=== PATIENT | male | born 1980 | race Caucasian/White ===

== ENCOUNTER → 2020-08-04 09:26 | Outpatient (BNVA) | payer OTHER, SELFPAY | PROVIDERS: PCP Internal Medicine; Visit Provider Surgery | DX: Z76.89 Persons encountering health services in other specified circumstances (principal) ==

== ENCOUNTER → 2020-08-12 11:17 | Outpatient (BNVA) | payer OTHER, SELFPAY | PROVIDERS: PCP Internal Medicine; Referring Provider Internal Medicine; Visit Provider Physician Assistant | DX: E66.8 Other obesity (principal); Z68.44 Body mass index [BMI] 60.0-69.9, adult | CPT/HCPCS: 99214 ==

== ENCOUNTER → 2020-08-19 09:10 | Outpatient (BNVA) | payer OTHER, SELFPAY | PROVIDERS: PCP Internal Medicine; Referring Provider Internal Medicine; Visit Provider Physician Assistant | DX: Z76.89 Persons encountering health services in other specified circumstances (principal) ==

== ENCOUNTER → 2020-08-26 11:03 | Outpatient (BNVA) | payer OTHER, SELFPAY | PROVIDERS: PCP Internal Medicine; Visit Provider Physician Assistant | DX: E66.01 Morbid (severe) obesity due to excess calories (principal); Z68.44 Body mass index [BMI] 60.0-69.9, adult; Z71.3 Dietary counseling and surveillance | CPT/HCPCS: 99213 ==

== ENCOUNTER 2020-08-30 10:56 | Outpatient (REF) | payer OTHER, SELFPAY ==
[2020-08-30 13:13] LABS: INTERNATIONAL NORM RATIO 1.3 (0.9-1.1); Prothrombin Time 14.9 SEC (10.8-13.0)
[2020-08-31 08:31] LABS: Hepatitis A Antibody IgG Nonreactive (Nonreactive)
[2020-09-02 02:42] LABS: Ceruloplasmin 42 mg/dL (18-36)
[2020-09-03 15:01] LABS: FIB-ALT 16 U/L (9-46); FIB-Alpha-2-Macroglobulin 253 mg/dL (106-279); FIB-Apolipoprotein A1 115 mg/dL (94-176); FIB-GGT 60 U/L (3-95); FIB-Haptoglobin 157 mg/dL (43-212); FIB-Total Bilirubin 0.6 mg/dL (0.2-1.2); Liver Fibrosis Score 0.42; Liver Fibrosis Stage F1-F2; Nec Inflam Act Grade A0; Nec Inflam Act Score 0.07
[2020-09-04 13:12] LABS: Vitamin B1 7 nmol/L (8-30)
[2020-09-05 13:42] LABS: Vitamin A 22 mcg/dL (38-98)
== END 2020-08-30 10:57 | disposition home or self-care (01) ==
LOC: HO.LAB 10:56
PROVIDERS: Absent Provider Surgery; PCP Internal Medicine; Visit Provider Internal Medicine Gastroenterology
DX: K74.60 Unspecified cirrhosis of liver (principal)
CPT/HCPCS: 36415; 81596; 82390; 84425; 84590; 85610; 86708

== ENCOUNTER → 2020-09-02 09:40 | Outpatient (BNVA) | payer OTHER, SELFPAY | PROVIDERS: PCP Internal Medicine; Visit Provider Physician Assistant | DX: Z76.89 Persons encountering health services in other specified circumstances (principal) ==

== ENCOUNTER → 2020-09-09 11:54 | Outpatient (BNVA) | payer OTHER, SELFPAY | PROVIDERS: PCP Internal Medicine; Visit Provider Physician Assistant | DX: E66.01 Morbid (severe) obesity due to excess calories (principal); Z68.44 Body mass index [BMI] 60.0-69.9, adult | CPT/HCPCS: 99212 ==

== ENCOUNTER → 2020-09-15 09:30 | Outpatient (BNVA) | payer OTHER, SELFPAY | PROVIDERS: PCP Internal Medicine; Visit Provider Physician Assistant | DX: Z76.89 Persons encountering health services in other specified circumstances (principal) ==

== ENCOUNTER → 2020-09-22 08:55 | Outpatient (BNVA) | payer OTHER, SELFPAY | PROVIDERS: PCP Internal Medicine; Visit Provider Dietitian, Registered | DX: Z76.89 Persons encountering health services in other specified circumstances (principal) ==

== ENCOUNTER → 2020-10-04 09:51 | Outpatient (BNVA) | payer OTHER, SELFPAY | PROVIDERS: PCP Internal Medicine; Visit Provider Physician Assistant | DX: Z76.89 Persons encountering health services in other specified circumstances (principal) ==

== ENCOUNTER → 2020-10-06 08:42 | Outpatient (BNVA) | payer OTHER, SELFPAY | PROVIDERS: PCP Internal Medicine; Referring Provider Internal Medicine; Visit Provider Internal Medicine Gastroenterology | DX: Z76.89 Persons encountering health services in other specified circumstances (principal) ==

== ENCOUNTER → 2020-10-11 08:12 | Outpatient (BNVA) | payer OTHER, SELFPAY | PROVIDERS: PCP Internal Medicine; Referring Provider Internal Medicine; Visit Provider Physician Assistant | DX: Z76.89 Persons encountering health services in other specified circumstances (principal) ==

== ENCOUNTER → 2020-10-24 09:28 | Outpatient (BNVA) | payer OTHER, SELFPAY | PROVIDERS: PCP Internal Medicine; Visit Provider Surgery | DX: E66.01 Morbid (severe) obesity due to excess calories (principal); Z68.44 Body mass index [BMI] 60.0-69.9, adult | CPT/HCPCS: 99212 ==

== ENCOUNTER → 2020-11-10 10:57 | Outpatient (BNVA) | payer OTHER, SELFPAY | PROVIDERS: PCP Internal Medicine; Visit Provider Surgery | DX: E66.01 Morbid (severe) obesity due to excess calories (principal); Z68.44 Body mass index [BMI] 60.0-69.9, adult | CPT/HCPCS: 99212 ==

== ENCOUNTER → 2020-11-22 08:21 | Outpatient (BNVA) | payer OTHER, SELFPAY | PROVIDERS: PCP Internal Medicine; Visit Provider Physician Assistant ==

== ENCOUNTER → 2020-12-09 09:31 | Outpatient (BNVA) | payer OTHER, SELFPAY | PROVIDERS: PCP Internal Medicine; Visit Provider Physician Assistant | DX: E66.01 Morbid (severe) obesity due to excess calories (principal); Z68.44 Body mass index [BMI] 60.0-69.9, adult | CPT/HCPCS: 99212 ==

== ENCOUNTER 2020-12-10 15:28 | Emergency (ER) | payer OTHER, SELFPAY ==
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
[2020-12-10 15:44] VITALS: BP 125/44; PULSE 92; RESP 18; TEMP 36.6; O2SAT 98; BMI 65.4
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
[2020-12-10] MEDS: Acetaminophen 325 MG TABLET 975 MG PO (16:30)
== END 2020-12-10 18:02 | disposition home or self-care (01) ==
PROVIDERS: Emergency Provider Internal Medicine; PCP Internal Medicine
DX: S06.0X9A Concussion with loss of consciousness of unspecified duration, initial encounter (principal); S00.11XA Contusion of right eyelid and periocular area, initial encounter; G44.309 Post-traumatic headache, unspecified, not intractable; M54.2 Cervicalgia; V43.52XA Car driver injured in collision with other type car in traffic accident, initial encounter; Y93.9 Activity, unspecified; Y92.481 Parking lot as the place of occurrence of the external cause; Y99.9 Unspecified external cause status
CPT/HCPCS: 70450; 72125; 99283; 99284

== ENCOUNTER → 2020-12-16 08:33 | Outpatient (BNVA) | payer OTHER, SELFPAY | PROVIDERS: PCP Internal Medicine; Visit Provider Physician Assistant ==

== ENCOUNTER → 2020-12-23 09:58 | Outpatient (BNVA) | payer OTHER, SELFPAY | PROVIDERS: PCP Internal Medicine; Visit Provider Physician Assistant ==

== ENCOUNTER → 2020-12-30 08:06 | Outpatient (BNVA) | payer OTHER, SELFPAY | PROVIDERS: PCP Internal Medicine; Visit Provider Physician Assistant ==

== ENCOUNTER → 2021-01-02 13:56 | Outpatient (BNVA) | payer OTHER, SELFPAY | PROVIDERS: PCP Internal Medicine; Visit Provider Internal Medicine Cardiovascular Disease | DX: I50.32 Chronic diastolic (congestive) heart failure (principal); E66.01 Morbid (severe) obesity due to excess calories; I10 Essential (primary) hypertension; Z68.44 Body mass index [BMI] 60.0-69.9, adult | CPT/HCPCS: 93005; 99212 ==

== ENCOUNTER → 2021-01-06 10:19 | Outpatient (BNVA) | payer OTHER, SELFPAY | PROVIDERS: PCP Internal Medicine; Visit Provider Surgery ==

== ENCOUNTER → 2021-01-13 08:13 | Outpatient (BNVA) | payer OTHER, SELFPAY | PROVIDERS: PCP Internal Medicine; Visit Provider Physician Assistant ==

== ENCOUNTER → 2021-01-20 08:22 | Outpatient (BNVA) | payer OTHER, SELFPAY | PROVIDERS: PCP Internal Medicine; Visit Provider Physician Assistant ==

== ENCOUNTER → 2021-02-03 08:33 | Outpatient (BNVA) | payer OTHER, SELFPAY | PROVIDERS: PCP Internal Medicine; Visit Provider Physician Assistant ==

== ENCOUNTER 2021-02-07 09:50 | Outpatient (REF) | payer OTHER, SELFPAY | END 2021-02-07 09:51 | disposition home or self-care (01) | LOC: HO.LAB 09:50 | PROVIDERS: Visit Provider Nurse Practitioner Family | DX: N30.01 Acute cystitis with hematuria (principal); Z13.9 Encounter for screening, unspecified | CPT/HCPCS: 87086; 87088; 87186 ==

== ENCOUNTER → 2021-02-10 08:47 | Outpatient (BNVA) | payer OTHER, SELFPAY | PROVIDERS: PCP Internal Medicine; Visit Provider Physician Assistant ==

== ENCOUNTER → 2021-02-17 08:43 | Outpatient (BNVA) | payer OTHER, SELFPAY | PROVIDERS: PCP Internal Medicine; Visit Provider Physician Assistant ==

== ENCOUNTER 2021-02-24 08:11 | Outpatient (REF) | payer OTHER, SELFPAY ==
[2021-02-24 09:19] LABS: Imm Gran Abs Auto 0.01 X10*3/uL (0.00-0.03); Imm Gran Pct Auto 0.2 % (0.0-0.4); Mean Corpuscular Volume 93.7 fL (80-98); Red Cell Distribution Width 14.8 % (11.0-16.0)
[2021-02-24 09:21] LABS: Basophils Percent Auto 0.4 % (0-2); Eosinophils Absolute Auto 0.1 X10*3/uL (0.0-0.4); Eosinophils Percent Auto 2.2 % (0-4); Hematocrit 38.6 % (42-52); Hemoglobin 12.7 g/dl (14.0-18.0); Lymphocytes Absolute Auto 0.9 X10*3/uL (1.2-4.9); Lymphocytes Percent Auto 19.2 % (20-40); Mean Corpuscular HGB Conc 32.9 g/dl (31.0-36.0); Mean Corpuscular Hemoglobin 30.8 pg (27.0-33.0); Mean Platelet Volume 10.3 fL (9.4-12.4); Monocytes Absolute Auto 0.5 X10*3/uL (0.1-1.2); Neutrophils Absolute Auto 3.3 X10*3/uL (2.0-8.3); Platelet Count 105 X10*3/uL (160-400); Red Blood Count 4.12 X10*6/uL (4.60-5.80); White Blood Count 4.9 X10*3/uL (4.8-10.8)
[2021-02-24 09:22] LABS: INTERNATIONAL NORM RATIO 1.2 (0.9-1.1); Prothrombin Time 14.8 SEC (10.8-13.0)
[2021-02-24 09:38] LABS: Anion Gap 12 (12-20); Blood Urea Nitrogen 26 mg/dL (9-16); Calcium 9.1 mg/dL (8.4-10.2); Carbon Dioxide 24 mmol/L (22-29); Chloride 105 mmol/L (96-108); Cholesterol 146 mg/dL; Estimated Glomerular Filt Rate > 60; Glucose Fasting 153 mg/dL (60-99); HDL Cholesterol 30 mg/dL; LDL Cholesterol Calculated 94 mg/dl; Potassium 4.7 mmol/L (3.3-5.1); Sodium 136 mmol/L (135-145); Triglycerides 113 mg/dL
[2021-02-24 09:39] LABS: Alanine Aminotransferase 19 U/L (0-40); Albumin Level 3.2 g/dL (3.5-5.0); Alkaline Phosphatase 75 U/L (39-117); Aspartate Amino Transferase 33 U/L (5-37); Bilirubin Direct 0.4 mg/dL (0.0-0.5); Bilirubin Total 1.2 mg/dL (0.0-1.0); Estimated Glomerular Filt Rate > 60; Total Protein 7.1 g/dL (6.5-8.0)
[2021-02-24 10:51] LABS: Estimated Average Glucose 143 mg/dL; Hemoglobin A1c % 6.6 %
[2021-02-28 22:02] LABS: Vitamin A 29 mcg/dL (38-98)
[2021-03-02 07:26] LABS: Vitamin B1 7 nmol/L (8-30)
== END 2021-02-24 08:12 | disposition home or self-care (01) ==
LOC: HO.LAB 08:11
PROVIDERS: Absent Provider Surgery; PCP Internal Medicine; Visit Provider Internal Medicine Gastroenterology
DX: Z01.818 Encounter for other preprocedural examination (principal); E66.01 Morbid (severe) obesity due to excess calories; E11.9 Type 2 diabetes mellitus without complications; I10 Essential (primary) hypertension; K74.60 Unspecified cirrhosis of liver; E51.9 Thiamine deficiency, unspecified; E50.9 Vitamin A deficiency, unspecified
CPT/HCPCS: 36415; 80048; 80061; 80076; 82565; 83036; 84425; 84590; 85025; 85610

== ENCOUNTER → 2021-02-28 14:29 | Outpatient (BNVA) | payer OTHER, SELFPAY | PROVIDERS: PCP Internal Medicine; Visit Provider Internal Medicine Gastroenterology ==

== ENCOUNTER → 2021-03-03 08:41 | Outpatient (BNVA) | payer OTHER, SELFPAY | PROVIDERS: PCP Internal Medicine; Referring Provider Internal Medicine; Visit Provider Physician Assistant ==

== ENCOUNTER → 2021-03-06 11:05 | Outpatient (BNVA) | payer OTHER, SELFPAY | PROVIDERS: PCP Internal Medicine; Visit Provider Physician Assistant | DX: E66.01 Morbid (severe) obesity due to excess calories (principal); Z68.44 Body mass index [BMI] 60.0-69.9, adult | CPT/HCPCS: 99212 ==

== ENCOUNTER 2021-03-08 08:44 | Outpatient (REF) | payer OTHER, SELFPAY ==
--- NOTE | ~2021-03-08 | US_ITS ---
EXAMINATION: US ABDOMEN COMPLETE CLINICAL INFORMATION: Unspecified cirrhosis of liver. COMPARISON: None TECHNIQUE: Real-time imaging of the abdominal viscera. Exam is limited due to body habitus. FINDINGS: PANCREAS: Not visualized due to bowel gas. ABDOMINAL AORTA: The mid and distal segments are normal in caliber. The upper abdominal aorta is not well visualized due to bowel gas. INFERIOR VENA CAVA: Visualized portions are normal. LIVER: Liver echotexture is increased and. The contour of the liver is slightly irregular questionable for mild cirrhosis. No focal liver lesion or biliary ductal dilatation is seen. The GALLBLADDER: Normal. The gallbladder is physiologically distended without evidence of stones, sludge, polyps, wall thickening or pericholecystic fluid. COMMON BILE DUCT: Normal in caliber measuring 0.2 cm in diameter. RIGHT KIDNEY: Right kidney is small with renal cortical thinning. No hydronephrosis. No renal calculi or focal parenchymal lesions. The kidney measures 7.8 cm in maximum dimension. LEFT KIDNEY: Normal. No hydronephrosis. No renal calculi or focal parenchymal lesions. The kidney measures 15.1 cm in maximum dimension. SPLEEN: The spleen is enlarged. The The spleen measures 17.0 cm in maximum dimension. FREE FLUID: None. US/US abdomen complete IMPRESSION: Limited exam. Cirrhotic-appearing liver. No focal liver lesion seen. Splenomegaly. No ascites. Small right kidney. Nonvisualization of the pancreas and upper abdominal aorta.
== END 2021-03-08 08:45 | disposition home or self-care (01) ==
LOC: HO.HMGCX 08:44
PROVIDERS: PCP Internal Medicine; Visit Provider Internal Medicine Gastroenterology
DX: K74.60 Unspecified cirrhosis of liver (principal)
CPT/HCPCS: 76700

== ENCOUNTER → 2021-03-17 09:27 | Outpatient (BNVA) | payer OTHER, SELFPAY | PROVIDERS: PCP Internal Medicine; Visit Provider Internal Medicine Gastroenterology | DX: Z23 Encounter for immunization (principal) | CPT/HCPCS: 99211 ==

== ENCOUNTER → 2021-03-20 08:57 | Outpatient (BNVA) | payer OTHER, SELFPAY | PROVIDERS: PCP Internal Medicine; Referring Provider Internal Medicine; Visit Provider Dietitian, Registered | DX: E66.01 Morbid (severe) obesity due to excess calories (principal); Z68.44 Body mass index [BMI] 60.0-69.9, adult | CPT/HCPCS: 97803 ==

== ENCOUNTER → 2021-03-21 14:05 | Outpatient (BNVA) | payer OTHER, SELFPAY | PROVIDERS: PCP Internal Medicine; Visit Provider Surgery | DX: E66.01 Morbid (severe) obesity due to excess calories (principal); Z68.44 Body mass index [BMI] 60.0-69.9, adult | CPT/HCPCS: 99212 ==

== ENCOUNTER → 2021-03-30 13:16 | Outpatient (BNVA) | payer OTHER, SELFPAY | PROVIDERS: PCP Internal Medicine; Visit Provider Physician Assistant | DX: E66.01 Morbid (severe) obesity due to excess calories (principal); Z68.44 Body mass index [BMI] 60.0-69.9, adult | CPT/HCPCS: 99212 ==

== ENCOUNTER → 2021-04-06 10:23 | Outpatient (BNVA) | payer OTHER, SELFPAY | PROVIDERS: PCP Internal Medicine; Visit Provider Physician Assistant ==

== ENCOUNTER → 2021-04-12 10:49 | Outpatient (BNVA) | payer OTHER, SELFPAY | PROVIDERS: PCP Internal Medicine; Referring Provider Internal Medicine; Visit Provider Surgery | DX: E66.01 Morbid (severe) obesity due to excess calories (principal); Z68.44 Body mass index [BMI] 60.0-69.9, adult | CPT/HCPCS: 99212 ==

== ENCOUNTER → 2021-04-28 13:20 | Outpatient (BNVA) | payer OTHER, SELFPAY | PROVIDERS: PCP Internal Medicine; Referring Provider Internal Medicine; Visit Provider Physician Assistant ==

== ENCOUNTER → 2021-05-04 08:46 | Outpatient (BNVA) | payer OTHER, SELFPAY | PROVIDERS: PCP Internal Medicine; Referring Provider Internal Medicine; Visit Provider Surgery | DX: E66.01 Morbid (severe) obesity due to excess calories (principal); Z68.44 Body mass index [BMI] 60.0-69.9, adult | CPT/HCPCS: 99212 ==

== ENCOUNTER 2021-05-10 10:55 | Inpatient (IN) | payer OTHER, SELFPAY ==
[2021-04-28 10:17] VITALS: BMI 66.6
[2021-04-28 13:15] VITALS: BP 132/58; PULSE 81; RESP 20; O2SAT 98
--- NOTE | 2021-05-04 10:19 | ECG_ITS ---
Test Reason : R06.02 SOB Blood Pressure : / mmHG Vent. Rate : 064 BPM Atrial Rate : 064 BPM P-R Int : 164 ms QRS Dur : 096 ms QT Int : 402 ms P-R-T Axes : -10 048 032 degrees QTc Int : 414 ms Normal sinus rhythm Normal ECG When compared with ECG of 03-JUN-2020 08:17, No significant change was found Referred By: Sobeida Ovalles Electronically Signed By:AMY CHRISTY MD
[2021-05-04 12:02] LABS: Albumin Level 3.3 g/dL (3.5-5.0); Anion Gap 12 (12-20); Blood Urea Nitrogen 16 mg/dL (9-16); Calcium 9.2 mg/dL (8.4-10.2); Carbon Dioxide 24 mmol/L (22-29); Chloride 104 mmol/L (96-108); Creatinine Clr Calc Pharmacy 174.2; Estimated Glomerular Filt Rate > 60; Glucose Random 164 mg/dL (60-115); Potassium 4.4 mmol/L (3.3-5.1); Sodium 136 mmol/L (135-145)
[2021-05-04 12:04] LABS: Lymphocytes Absolute Auto 1.2 X10*3/uL (1.2-4.9); MANUAL DIFF FLAG SCAN; PLT CLUMP 1; SCAN SMEAR FLAG 1
[2021-05-04 12:06] LABS: Basophils Percent Auto 0.4 % (0-2); Eosinophils Absolute Auto 0.1 X10*3/uL (0.0-0.4); Eosinophils Percent Auto 1.6 % (0-4); Hematocrit 39.3 % (42-52); Hemoglobin 13.1 g/dl (14.0-18.0); Imm Gran Abs Auto 0.05 X10*3/uL (0.00-0.03); Imm Gran Pct Auto 0.7 % (0.0-0.4); Lymphocytes Percent Auto 15.8 % (20-40); Mean Corpuscular HGB Conc 33.3 g/dl (31.0-36.0); Mean Corpuscular Volume 93.1 fL (80-98); Mean Platelet Volume 10.9 fL (9.4-12.4); Monocytes Absolute Auto 0.5 X10*3/uL (0.1-1.2); Monocytes Percent Auto 6.9 % (2-11); Neutrophils Absolute Auto 5.4 X10*3/uL (2.0-8.3); Neutrophils Percent Auto 74.6 % (45-73); Platelet Count 105 X10*3/uL (160-400); Red Blood Count 4.22 X10*6/uL (4.60-5.80); Red Cell Distribution Width 14.2 % (11.0-16.0); White Blood Count 7.3 X10*3/uL (4.8-10.8)
[2021-05-04 12:09] LABS: INTERNATIONAL NORM RATIO 1.3 (0.9-1.1); Prothrombin Time 14.9 SEC (10.8-13.0)
[2021-05-04 12:12] LABS: Partial Thromboplastin Time 35.3 SEC (24.1-38.0)
[2021-05-04 13:08] LABS: Glucose Urine UA NEG (NEG); Leukocyte Esterase Urine NEG (NEG); Nitrite Urine NEG (NEG); Urine Blood NEG (NEG); Urine Ketones NEG (NEG); Urine Protein NEG (NEG-TRACE)
[2021-05-04 13:12] LABS: Appearance Urine CLEAR; Color Urine YELLOW
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
--- NOTE | 2021-05-09 12:58 | MHC.SHP ---
Pre-Procedural Eval Section A Date of Service: 05/09/21 Section B Chief Complaint: Morbid Severe Obesity Allergies: Allergies Allergy/AdvReac Type Severity Reaction Status Date / Time No Known Allergies Allergy Verified 05/04/21 10:16 Plan I have reviewed the history and physical and performed a pertinent physical examination on my patient. No changes have occurred unless specified.
[2021-05-10] VITALS (16 sets, daily range): BP systolic 106–156; BP diastolic 31–100; PULSE 72–89; RESP 16–20; TEMP 36–36.6; O2SAT 93–99
[2021-05-10 06:41] LABS: COVID-19 Test Negative (Negative); IDNOW Serial# 9DD0AD1C
[2021-05-10] MEDS: Lactated Ringers 1,000 ML 50 ML IVCONT (07:48)
[2021-05-10 08:57] LABS: Glucose, Whole Blood 162 mg/dL (60-115)
--- NOTE | 2021-05-10 10:50 | PM.OP ---
Brief Operative Note Date of Service: 05/10/21 Pre-op diagnosis: Morbid obesity, BMI 67.9, hypertension, type 2 diabetes mellitus Post-op diagnosis: other ( same and hiatal hernia) Procedure: laparoscopic sleeve gastrectomy, hiatal hernia repair, Juan block, and intraoperative endoscopy Implants: covidien kalyn Surgeon: Sobeida Ovalles MD Anesthesia: GETA Was an [employer] Fab[employer]ator used for this Procedure?: No [employer] Fabricator: Yue Petit Estimated blood loss (mL): 5 Pathology: other ( partial gastrectomy) Condition: stable Disposition: PACU
--- NOTE | 2021-05-10 10:52 | P.OP_ITS ---
Operative Note Operative Note Date of Service: 05/10/21 Narrative: Patient was brought into the operating room and placed on the operating room table in the supine position. General anesthesia was induced. Normal DVT prophylaxis was instituted and the patient received 2 grams of cefotetan preoperatively. The abdomen was then prepped and draped in the normal sterile fashion. A safety time-out was performed. A mixture of 1% lidocaine with epinephrine and ?% Marcaine plain was used to a nesthetize the planned incision site in the left upper quadrant. A #11 scalpel was used to make a 5 mm left upper quadrant transverse incision through which a veress needle was placed. Three pops were heard going through the fascia. A saline drop test was used to confirm that the veress needle was intraabdominal. An optiview technique was then used to place a 5mm port in the left upper quadrant. A 5 mm 30 degree laproscope was then placed through this port and the abdominal cavity was surveyed and the liver appeared to be cirrhotic in appearance. The patient was placed in reverse Trendelenburg positioning. A zhane liver retractor was then placed in the subxyphoid position and it was used to hold up the left lobe of the liver to the abdominal wall. This was secured to the bed using the liver retractor calderon. A SOLEDAD block was then performed for pain control on the right side of the abdomen. A 5 mm port was placed in the right upper quadrant near the falciform ligament. A 12 mm port was then placed in the mid epigastrium. One additional 5 mm port was placed in the left upper quadrant just to the left of the placement of the first port. I then performed a SOLEDAD block on the left side of the abdomen. I then removed the epigastric fat pad; there was a small anterior hiatal hernia noted. I reapproximated the left and right crura with a total of 1 stitch of 2-0 ethibond and a lap aroscopic knot pusher. There was no residual hiatal hernia. I then opened up the angle of His. We then gained entry into the lesser sac about 4-5 cm from the pylorus. I had anesthesia place a 34 [place] orogastric tube into the distal antrum to use as a sizing tool for gastric pouch size. I divided the short gastric vessels up to the angle of His. We then started the creation of the gastric pouch by firing a 60 mm purple load endostapler up the stomach about 4-5 cm from the pylorus. We completed the creation of the gastric pouch using a total of 5 firings of a 60 mm purple load stapler. We had anesthesia remove the orogastric tube, then we clamped across the distal antrum using a fired 60 mm endostapler. We flattened the patient and then instilled normal saline surrounding the newly created staple line. I then performed an on-table endoscopy. I passed the gastroscopy into the posterior oropharynx and down the esophagus evaluating the esophageal mucosa which was normal. There was no evidence of hiatal hernia. I passed the gastroscope into the gastric pouch and insufflated the gastric pouch. There was healthy pink mucosa and no evidence of active bleeding. There was no evidence of leak on laparoscopy. I desufflated the gastric pouch and removed the endoscope. I removed the endostapler from the abdomen and suctioned the fluid from the left upper quadrant. I then removed the partial gastrectomy specimen through the epigastric 12 mm port site. I reapproximated the 12 mm port using a 0 maxon suture with a laparoscopic suture passer. I instilled local anesthetic into the fascial closure site and tied the suture down at a pressure of 8-10 mm of Hg. There was no residual fascial defect. We removed the liver retractor and the left upper quadrant 5 mm ports under direct visualization. There was no evidence of any active bleeding. I desufflated the abdomen through the last remaining port and removed the laparoscope and 5 mm port. We reapproximated all incisions with a 4-0 monocryl subcuticular stitch. We cleaned and dried the abdominal skin and applied dermabond skin glue. All count were correct at the end of the case. The patient was awake and in stable condition prior to extubation and transfer to the recovery room.
--- NOTE | 2021-05-10 11:05 | PM.DS ---
DS: Providers Provider Date of Service: 05/11/21 Primary care physician: Riaz Hopson MD DS: Medications Discharge Medications Home Medications: Home Medications Medication Instructions Recorded Confirmed docusate sodium 100 mg capsule 100 mg PO BID PRN 08/12/20 05/04/21 multivitamin 1 tab PO DAILY 04/28/21 05/04/21 Previous Rx's Medication Instructions Recorded blood sugar diagnostic #100 ea 08/14/20 lancets 28 gauge #100 ea 08/14/20 blood-glucose meter #1 ea 08/15/20 furosemide 20 mg tablet 20 mg PO DAILY #90 tab 02/20/21 vitamin A palmitate 10,000 unit 20,000 unit PO DAILY 30 Days #60 03/01/21 tablet tab hydrochlorothiazide 12.5 mg capsule 12.5 mg PO QAM #90 cap 04/10/21 acetaminophen 500 mg tablet 1,000 mg PO Q6H PRN #30 tab 05/04/21 docusate sodium 100 mg capsule 100 mg PO BID #30 cap 05/04/21 famotidine 20 mg tablet 20 mg PO DAILY #30 tab 05/04/21 ondansetron HCl 4 mg tablet 4 mg PO Q6H PRN #30 tab 05/04/21 simethicone 80 mg chewable tablet 80 mg PO TID-QID PRN #30 tab 05/04/21 lisinopril 20 mg tablet 20 mg PO DAILY 90 Days #90 tab 05/09/21 DS: Summary Time Spent with Patient Time attestation: Total time spent providing and/or coordinating discharge services: Discharge coordination time: Greater than 30 minutes Quality: Stroke Does the patient have a stroke diagnosis?: No Physical Exam Vital Signs: Vital Signs: Last Vital Signs Temp 97.7 F 05/10/21 10:46 Pulse 88 05/10/21 11:02 Resp 18 05/10/21 10:56 BP 142/56 H 05/10/21 11:02 Pulse Ox 99 05/10/21 11:02 Body Mass Index 66.6 DS: Data Data Completed and Pending Pending studies at discharge: Pending at discharge 05/10/21 10:20 Surgical [PTH] Routine Labs on day of discharge: Laboratory Results - last 24 hr 05/10/21 05/10/21 06:15 07:26 POC Glucose 162 H COVID-19 ([facility]) Negative COVID-19 Clin Com See Note Discharge Plan Discharge Patient Disposition: Home, Self-Care Discharge Diagnosis: morbid obesity s/p LSG and HH repair Referrals: Riaz Hopson MD [Primary Care Provider] - 1 Week Discharge Medications: Continued (DME) FreeStyle Lite Strips Strip See Rx Instructions .ROUTE .MEDSUPPLY Qty: 100 RF: 0 (DME) lancets [FreeStyle Lancets] 28 gauge misc See Rx Instructions .ROUTE .MEDSUPPLY Qty: 100 RF: 0 (DME) blood-glucose meter [FreeStyle Lite Meter] Kit See Rx Instructions .ROUTE .MEDSUPPLY Qty: 1 RF: 0 furosemide 20 mg tablet 20 mg PO DAILY Qty: 90 RF: 0 vitamin A palmitate 10,000 unit tablet 20,000 unit PO DAILY 30 Days Qty: 60 RF: 1 hydrochlorothiazide 12.5 mg capsule 12.5 mg PO QAM Qty: 90 RF: 0 lisinopril 20 mg tablet 20 mg PO DAILY 90 Days Qty: 90 RF: 0 multivitamin Tablet 1 tab PO DAILY RF: 0 acetaminophen [Tylenol Extra Strength] 500 mg tablet 1,000 mg PO Q6H PRN (Reason: pain) Qty: 30 RF: 1 famotidine [Pepcid AC] 20 mg tablet 20 mg PO DAILY Qty: 30 RF: 1 simethicone [Gas Relief (simethicone)] 80 mg tablet,chewable 80 mg PO TID-QID PRN (Reason: abdominal distention) Qty: 30 RF: 1 ondansetron HCl [Zofran] 4 mg tablet 4 mg PO Q6H PRN (Reason: nausea and vomiting) Qty: 30 RF: 1 docusate sodium [Colace] 100 mg capsule 100 mg PO BID Qty: 30 RF: 1 Discontinued docusate sodium 100 mg capsule 100 mg PO BID PRN (Reason: Constipation) RF: 0 No Action enoxaparin [Lovenox] 30 mg/0.3 mL syringe 30 mg subcut Q12H 14 Days Qty: 8.4 RF: 0 ondansetron HCl 4 mg tablet 4 mg PO Q8H PRN (Reason: nausea and vomiting) Qty: 14 RF: 0 Discharge Orders: Discharge Order (Routine); Ordered 05/11/21 Ordered By: Yue Petit Diet: other Activity on Discharge: No heavy lifting Stand Alone Forms: Patient Portal Discharge page Activity Restrictions/Additional Instructions: Discharge Instructions 1. Please call your doctor or come back to the emergency room should any new symptoms arise. 2. You will receive a courtesy call from [facility] 24-48 hours after discharge. 3. Activity: abstain from alcohol, practice limited stair climbing, no bending, no driving, no exercise, no illicit substances, no lifting, no sex, no tub bath, no work. 4. Diet: continue stage 3 protein shakes until your [address] Ovalles. 5. Dressing Change/Wound Care: Your incision is covered by surgical glue. If the area is tender, you may apply an ice pack for short intervals (no more than 20 minutes on, followed by at least 20 minutes off). Do not apply heat. Do not use creams, lotions, or topical antibiotics unless instructed to do so by your surgeon. These can cause infection or allergic reaction. 6. Call your doctor if: - Your temperature exceeds 101.5 F - You experience excessive pain or swelling - You have an unexpected reaction to medication - You have excessive bleeding - You experience continued vomiting/nausea - Your incision begins to separate - Your incision shows signs of infection such as increased redness, swelling, excessive pain, heat, or drainage (light blood or clear fluid is normal) 7. General instructions: - No lifting greater than 5 lbs for the next 4 weeks. - No driving within 24 hours of taking narcotic pain medications. - If you do not move your bowels in the next 2 days, please take milk of magnesia over the counter. Please follow the post op diet and do not advance your diet until you are seen in the office in about 2 weeks. - Please walk around your home every hour or two to prevent blood clots from forming in your legs. You do not need to wake from sleeping to walk. - Please sleep in a bed or couch to prevent kinking at the hips and knees. - Please take your incentive spirometer (your lung continuous pickling line pickler) home with you and use it for the next few days to prevent pneumonias. - You may shower, no hot tubs, baths or swimming pools. - Please call the office with any questions or concerns such as increasing abdominal pain, fever, chills, shortness of breath, chest pain, leg pain or swelling, or redness or drainage from your incisions. - Please stay on stage 3 diet which includes sugar free clear liquids such as ice pops and jello and broth and crystal light. Avoid all carbonation. Please drink 3 protein shakes with at least 25-30 grams of protein daily or 3 of the Celebrate 4:1 shakes which can be purchased in our office. The Celebrate shakes have all of the bariatric vitamins you need if you consume these shakes. If you are drinking other protein shakes, you will need to purchase the Celebrate multivitamins and calcium that we provide in the office (they will provide all the vitamins you need). Please make sure you are consuming at least 40-60 ounces of water in addition to your 3 protein shakes daily. 8. Do not hesitate to contact the office with any questions at . The patient's medical history has been reviewed and they are considered low risk for post op DVT and therefore DVT prophylaxis is not considered necessary. Travel after surgery was reviewed. The patient has not disclosed any travel plans during the first 30 days after surgery and they have been advised that within the first 30 days after surgery any bus, plane, train or car travel over 2 hours in duration is contraindicated due to the possibility of developing blood clots from immobility. Any travel, needs to include periods of ambulation of 10 minutes in duration every 2 hours. The patient was instructed to discuss any plans for travel during this period with their bariatric surgeon. Discharge Summary Date of Service: 05/11/21 Pre-op diagnosis: Morbid obesity, BMI 67.9, hypertension, type 2 diabetes mellitus Post-op diagnosis: other ( same and hiatal hernia) Procedure: laparoscopic sleeve gastrectomy, hiatal hernia repair, Juan block, and intraoperative endoscopy Discharge Medications: 1. Simethicone 80mg tablet chewable (Si tablet every 6 hours orally for 7 days, #28, 1 RF) q4h prn gas 2. Acetaminophen 500 mg tablet (Si tablets as needed every 6 hours orally for 30 days, #240, 0 RF) 3. Ondansetron 4 mg tablet disintegrating (Si tablet every 6 hours orally for 7 days, #28, 1 RF) 4. Colace 100 mg capsule (Si capsule twice a day for 30 days, #60, 2 RF) 5. Pepcid 20 mg chewable tablet (Si tablet twice a day for 30 days, #60, 3 RF) Discharge Instructions: The patient should continue on the stage III bariatric diet, which includes 3 protein shakes of at least 20-30g of protein on a daily basis. The patient was encouraged to avoid drinking liquids with her protein shakes. They should wait 30-45 minutes in between her meals and drinking water. She should drink at least 40-60 ounces of water on a daily basis. They should ambulate while at home to avoid any blood clots in her lower extremities. They should call with any questions or concerns such as increase in abdominal pain, persistent nausea, vomiting, redness and drainage from her incisions, fever, chills, shortness of breast, or chest pain beyond what is normal for her. The patient should avoid all heavy lifting greater than 5 pounds for the next 4 weeks. The patient is already scheduled to follow up with me in 2 weeks time, but should call the office with any questions prior to that follow up appointment. The patient should not advance their diet until they are seen in the office for the 2 week appointment. Hospital Course: The patient was admitted after undergoing a LSG and HH repair. They were started on stage II (1 oz of fluid every 15 minutes) on POD #0. The next morning they were evaluated and started on stage III diet (protein shakes). All labs were within normal limits. On post-operative day #1 she was feeling better, nausea and epigastric pain improved and they were tolerating stage III bariatric diet well. The patient was discharged home. Discharge Disposition: Home. Care Plan Goals: weight loss Health Concerns: obesity Plan of Treatment: weight loss Assessment: stable POD #1 Discharge Date/Time: 05/11/21 10:14
--- NOTE | 2021-05-10 11:05 | PM.PNGS ---
Subjective Subjective Date of Service: 05/10/21 <Yue Petit PA-C - Last Filed: 05/10/21 11:09> 05/11/21 <Sobeida Ovalles MD - Last Filed: 05/11/21 09:32> Interval history: Pod #1 s/p laparoscopic sleeve gastrectomy and hiatal hernia repair. Doing well. Tolerating stage 3 diet, ambulating in hallway. Pain well controlled. Denies nausea or vomiting. Vitals and labs reviewed and are within limit for post op day 1. On exam, patient is well appearing, abdomen is soft, nd, mild appropriate incisional tenderness. Incisions c/d/i with dermabond in place. Plan: d/c home today. Follow up with me in 2 weeks. <Yue Petit PA-C - Last Filed: 05/10/21 11:09> Patient seen and examined with the PA and I agree with the exam, interval history, assessment and plan. Patient will be discharged home on 30 units of Lovenox b.i.d. given that he has a BMI over 60 and is at increased risk for postoperative DVT. He will be on Lovenox for 2 weeks postop. Patient has also had elevated blood sugars that are likely related to the stress response status post surgery. Patient will continue to monitor his blood sugars and will call his primary care doctor to determine whether he needs to be placed on diabetic medications. <Sobeida Ovalles MD - Last Filed: 05/11/21 09:32> Physical Exam Vital Signs: Vital Signs: Last Vital Signs Temp 97.7 F 05/10/21 10:46 Pulse 88 05/10/21 11:02 Resp 18 05/10/21 10:56 BP 142/56 H 05/10/21 11:02 Pulse Ox 99 05/10/21 11:02 Body Mass Index 66.6 <Yue Petit PA-C - Last Filed: 05/10/21 11:09> Const: General: cooperative, comfortable, no acute distress, alert and awake <Yue Petit PA-C - Last Filed: 05/10/21 11:09> Nutritional Appearance: obese <Yue Petit PA-C - Last Filed: 05/10/21 11:09> GI: Inspection: Yes normal to inspection, No distended and Yes incision (clean, dry, intact, dermabond in place) <Yue Petit PA-C - Last Filed: 05/10/21 11:09> Palpation (GI): Soft to palpation and Tenderness to palpation present (GI) (mild appropriate incisional tenderness) <Yue Petit PA-C - Last Filed: 05/10/21 11:09> Extrem: Right lower extremity: lower leg Details: no tenderness; no edema <Yue Petit PA-C - Last Filed: 05/10/21 11:09> Left lower extremity: lower leg Details: no tenderness; no edema <Yue Petit PA-C - Last Filed: 05/10/21 11:09> Progress Note: A&P Assessment and plan (1) Morbid obesity with BMI of 60.0-69.9, adult: Status: Acute <Yue Petit PA-C - Last Filed: 05/10/21 11:09> (2) BMI 60.0-69.9, adult: Status: Acute <Yue Petit PA-C - Last Filed: 05/10/21 11:09> (3) Hiatal hernia: Status: Acute <Yue Petit PA-C - Last Filed: 05/10/21 11:09> (4) History of repair of hiatal hernia: Status: Acute <Yue Petit PA-C - Last Filed: 05/10/21 11:09> (5) S/P laparoscopic sleeve gastrectomy: Status: Acute <Yue Petit PA-C - Last Filed: 05/10/21 11:09> Assessment and Plan: d/c home today. Follow up in 2 weeks. <Yue Petit PA-C - Last Filed: 05/10/21 11:09> Fall Risk Details Current Medications: Current Medications Generic Name Dose Route Start Last Admin Trade Name Freq PRN Reason Stop Dose Admin Albuterol Sulfate 2.5 mg 05/10/21 08:08 Albuterol Sulfate (0.083%) 2.5 Mg/3 Ml Vial.Neb INHALE ONCE PRN Wheezing Famotidine 20 mg 05/10/21 21:00 Famotidine/Pf 20 Mg/2 Ml Vial IVPUSH BID ROBERTO Fentanyl 50 mcg 05/10/21 08:08 Fentanyl Citrate/Pf 100 Mcg/2 Ml Vial IVPUSH Q5M PRN Pain, Severe (Pain Scale 7-10) Fentanyl 25 mcg 05/10/21 08:08 Fentanyl Citrate/Pf 100 Mcg/2 Ml Vial IVPUSH Q5M PRN Pain, Moderate (Pain Scale 4-6 Hydrochlorothiazide 12.5 mg 05/11/21 09:00 Hydrochlorothiazide 12.5 Mg Tablet PO DAILY [facility] Protocol Hydromorphone HCl 0.5 mg 05/10/21 08:08 Hydromorphone Hcl 0.5 Mg/0.5 Ml Syringe IVPUSH Q5M PRN Pain, Severe (Pain Scale 7-10) Hydromorphone HCl 0.25 mg 05/10/21 08:08 Hydromorphone Hcl 0.5 Mg/0.5 Ml Syringe IVPUSH Q5M PRN Pain, Severe (Pain Scale 7-10) Hydromorphone HCl 0.25 mg 05/10/21 10:55 Hydromorphone Hcl 0.5 Mg/0.5 Ml Syringe IVPUSH Q4H PRN Pain, Severe (Pain Scale 7-10) Lactated Ringer's 1,000 mls @ 50 mls/hr 05/10/21 06:15 05/10/21 07:48 Lr IVCONT 50 mls/hr .Q20H ROBERTO Administration Promethazine HCl 12.5 mg/ 50.5 mls @ 202 mls/hr 05/10/21 08:08 Sodium Chloride IV ONCE PRN Nausea and Vomiting Lactated Ringer's 1,000 mls @ 100 mls/hr 05/10/21 11:00 Lr IVCONT .Q10H ROBERTO Cefotetan Disodium 2 gm/ 50 mls @ 100 mls/hr 05/10/21 10:55 Sodium Chloride IV 05/10/21 11:24 POSTOP ONE Metoclopramide HCl 10 mg 05/10/21 11:01 Metoclopramide Hcl 10 Mg/2 Ml Vial IVPUSH Q6H PRN Nausea Ondansetron HCl 4 mg 05/10/21 11:15 Ondansetron Hcl 4 Mg/2 Ml Vial IVPUSH Q8H [facility] Oxycodone HCl 10 mg 05/10/21 08:08 Oxycodone Hcl Immed Release 5 Mg Tablet PO ONCE PRN Pain, Severe (Pain Scale 7-10) Oxycodone HCl 5 mg 05/10/21 08:08 Oxycodone Hcl Immed Release 5 Mg Tablet PO ONCE PRN Pain, Severe (Pain Scale 7-10) Sodium Chloride 3 ml 05/10/21 16:00 0.9 % Sodium Chloride Flush 3 Ml Syringe IVFSH [facility] <Yue Petit PA-C - Last Filed: 05/10/21 11:09> Time Spent With Patient Time: Total time spent is greater than 50% in coordination of care (as documented) at patient's floor/unit and/or counseling patient: <Yue Petit PA-C - Last Filed: 05/10/21 11:09> Time with patient: less than 15 minutes <Sobeida Ovalles MD - Last Filed: 05/11/21 09:32> Procedures Date of Service Date of Service: 05/11/21 <Sobeida Ovalles MD - Last Filed: 05/11/21 09:32> Quality Stroke Does the patient have a stroke diagnosis?: No <Sobeida Ovalles MD - Last Filed: 05/11/21 09:32> VTE Prior VTE?: No <Sobeida Ovalles MD - Last Filed: 05/11/21 09:32> VTE Risk Level:: Surgical - high <Sobeida Ovalles MD - Last Filed: 05/11/21 09:32> VTE Device Contraindication: N/A - Device Ordered <Sobeida Ovalles MD - Last Filed: 05/11/21 09:32> VTE Drug Contraindication: N/A - Med Ordered <Sobeida Ovalles MD - Last Filed: 05/11/21 09:32>
[2021-05-10] MEDS: HYDROmorphone HCl 0.5 MG/0.5 ML SYRINGE IVPUSH (11:08)
[2021-05-10] MEDS: Famotidine/PF 20 MG/2 ML VIAL IVPUSH ×2 (11:09→21:00)
[2021-05-10 11:47] LABS: Vitamin A 25 mcg/dL (38-98)
[2021-05-10] MEDS: ondansetron HCL 4 MG/2 ML VIAL IVPUSH ×2 (13:45→21:00)
[2021-05-10] MEDS: Furosemide 20 MG TABLET PO (14:19)
[2021-05-10 15:03] LABS: Glucose, Whole Blood 297 mg/dL (60-115)
[2021-05-10 16:12] LABS: Glucose, Whole Blood 307 mg/dL (60-115)
[2021-05-10] MEDS: Insulin Lispro 100 UNIT/ML 3 ML VIAL SUBCUT ×2 (17:00→21:01)
[2021-05-10] MEDS: HYDROmorphone HCl 0.5 MG/0.5 ML SYRINGE 0.25 MG IVPUSH (17:45)
[2021-05-10 20:24] LABS: Glucose, Whole Blood 303 mg/dL (60-115)
[2021-05-10] MEDS: cefoTEtan disodium 2 GM in 0.9 % Sodium Chloride 50 ML IV (21:00)
[2021-05-10] MEDS: 0.9 % Sodium Chloride Flush 3 ML SYRINGE IVFLUSH (21:01)
[2021-05-11 03:53] VITALS: BP 133/62; PULSE 66; RESP 16; TEMP 36.5; O2SAT 96
[2021-05-11 03:59] LABS: Glucose, Whole Blood 229 mg/dL (60-115)
[2021-05-11] MEDS: Insulin Lispro 100 UNIT/ML 3 ML VIAL SUBCUT (04:08)
[2021-05-11] MEDS: ondansetron HCL 4 MG/2 ML VIAL IVPUSH (04:08)
[2021-05-11 05:55] LABS: MANUAL DIFF FLAG NO
[2021-05-11 06:02] LABS: Basophils Percent Auto 0.1 % (0-2); Hematocrit 39.3 % (42-52); Hemoglobin 12.8 g/dl (14.0-18.0); Imm Gran Abs Auto 0.05 X10*3/uL (0.00-0.03); Imm Gran Pct Auto 0.4 % (0.0-0.4); Lymphocytes Absolute Auto 0.7 X10*3/uL (1.2-4.9); Lymphocytes Percent Auto 5.9 % (20-40); Mean Corpuscular HGB Conc 32.6 g/dl (31.0-36.0); Mean Corpuscular Volume 95.2 fL (80-98); Mean Platelet Volume 10.7 fL (9.4-12.4); Monocytes Absolute Auto 0.7 X10*3/uL (0.1-1.2); Monocytes Percent Auto 5.4 % (2-11); Neutrophils Absolute Auto 10.8 X10*3/uL (2.0-8.3); Neutrophils Percent Auto 88.2 % (45-73); Red Blood Count 4.13 X10*6/uL (4.60-5.80); Red Cell Distribution Width 14.2 % (11.0-16.0); White Blood Count 12.2 X10*3/uL (4.8-10.8)
[2021-05-11] MEDS: HYDROmorphone HCl 0.5 MG/0.5 ML SYRINGE 0.25 MG IVPUSH (06:04)
[2021-05-11 06:05] LABS: Platelet Count 88 X10*3/uL (160-400)
[2021-05-11 06:32] LABS: Anion Gap 14 (12-20); Blood Urea Nitrogen 24 mg/dL (9-16); Calcium 8.8 mg/dL (8.4-10.2); Carbon Dioxide 20 mmol/L (22-29); Chloride 104 mmol/L (96-108); Creatinine Clr Calc Pharmacy 138.8; Estimated Glomerular Filt Rate > 60; Glucose Random 210 mg/dL (60-115); Potassium 5.1 mmol/L (3.3-5.1); Sodium 133 mmol/L (135-145)
[2021-05-11 07:11] VITALS: BP 148/68; PULSE 79; RESP 17; TEMP 36.4; O2SAT 96
[2021-05-11 07:31] LABS: Glucose, Whole Blood 213 mg/dL (60-115)
[2021-05-11] MEDS: Famotidine/PF 20 MG/2 ML VIAL IVPUSH (07:48)
[2021-05-11] MEDS: lisinopriL 20 MG TABLET PO (07:53)
[2021-05-11] MEDS: Furosemide 20 MG TABLET PO (07:53)
--- NOTE | 2021-05-11 08:55 | MHC.CM.PN ---
PATIENT IS FULLY INDEPENDENT WITH HIS ADLS. NO DME OR VNA. HE IS AGREEABLE TO ASSIGNING HCP AGENTS. MOM AND DAD ARE CHOSEN (IN THAT ORDER) COPY IN CHART AND PATIENT HAS ORIGINAL. HE IS AWARE THAT HE IS DISCHARGED HOME TODAY WITH NO SERVICES. FAMILY TO TRANSPORT.
--- NOTE | 2021-05-11 09:18 | MHC.CM.PN ---
HCP FAXED INTO [facility] UNDER ACCOUNT [id number].
[2021-05-11] MEDS: Enoxaparin Sodium 30 MG/0.3 ML SYRINGE SUBCUT (09:33)
== END 2021-05-11 10:14 | disposition home or self-care (01) | DRG 403 ==
LOC: HO.SSSA 11:22 → HO.S3 12:24
PROVIDERS: Physician Assistant; Admitting Provider Surgery; PCP Internal Medicine; Visit Provider Surgery
PROC: 0DB64Z3 Excision of Stomach, Percutaneous Endoscopic Approach, Vertical (ICD-10-PCS; CPT 43845; principal; 2021-05-10 08:10)
DX: E66.01 Morbid (severe) obesity due to excess calories (principal); I11.0 Hypertensive heart disease with heart failure; I50.9 Heart failure, unspecified; E11.9 Type 2 diabetes mellitus without complications; K44.9 Diaphragmatic hernia without obstruction or gangrene; Z20.822 Contact with and (suspected) exposure to COVID-19; Z86.16 Personal history of COVID-19; Z68.44 Body mass index [BMI] 60.0-69.9, adult; Z79.899 Other long term (current) drug therapy
CPT/HCPCS: 36415; 80048; 81003; 82040; 82947; 84590; 85025; 85610; 85730; 86850; 86900; 86901; 87635; 88307; 88342; 93005; 99024; C1776; J0131; J0330; J1100; J1170; J1650; J2250; J2405; J2550; J3010

== ENCOUNTER → 2021-05-25 10:30 | Outpatient (BNVA) | payer OTHER, SELFPAY | PROVIDERS: PCP Internal Medicine; Referring Provider Internal Medicine; Visit Provider Surgery | DX: Z98.84 Bariatric surgery status (principal); Z98.890 Other specified postprocedural states; Z87.19 Personal history of other diseases of the digestive system | CPT/HCPCS: 99212 ==

== ENCOUNTER → 2021-06-02 08:12 | Outpatient (BNVA) | payer OTHER, SELFPAY | PROVIDERS: PCP Internal Medicine; Visit Provider Physician Assistant ==

== ENCOUNTER → 2021-06-13 08:56 | Outpatient (BNVA) | payer OTHER, SELFPAY | PROVIDERS: PCP Internal Medicine; Referring Provider Internal Medicine; Visit Provider Physician Assistant | DX: Z98.84 Bariatric surgery status (principal); Z98.890 Other specified postprocedural states; Z87.19 Personal history of other diseases of the digestive system | CPT/HCPCS: 99212 ==

== ENCOUNTER → 2021-06-29 08:12 | Outpatient (BNVA) | payer OTHER, SELFPAY | PROVIDERS: PCP Internal Medicine; Referring Provider Internal Medicine; Visit Provider Physician Assistant ==

== ENCOUNTER → 2021-07-05 12:30 | Outpatient (BNVA) | payer OTHER, SELFPAY | PROVIDERS: PCP Internal Medicine; Referring Provider Internal Medicine; Visit Provider Internal Medicine Cardiovascular Disease | DX: I10 Essential (primary) hypertension (principal); R60.9 Edema, unspecified | CPT/HCPCS: 99212 ==

== ENCOUNTER → 2021-07-11 09:28 | Outpatient (BNVA) | payer OTHER, SELFPAY | PROVIDERS: PCP Internal Medicine; Visit Provider Dietitian, Registered | DX: E66.01 Morbid (severe) obesity due to excess calories (principal); Z68.43 Body mass index [BMI] 50.0-59.9, adult | CPT/HCPCS: 97803 ==

== ENCOUNTER 2021-07-12 10:39 | Outpatient (REF) | payer OTHER, SELFPAY ==
[2021-07-12 13:09] LABS: Basophils Percent Auto 0.2 % (0-2); Imm Gran Abs Auto 0.01 X10*3/uL (0.00-0.03); Imm Gran Pct Auto 0.2 % (0.0-0.4); Mean Corpuscular Volume 94.8 fL (80-98); Red Cell Distribution Width 14.6 % (11.0-16.0)
[2021-07-12 13:11] LABS: Eosinophils Absolute Auto 0.1 X10*3/uL (0.0-0.4); Eosinophils Percent Auto 1.6 % (0-4); Hematocrit 39.8 % (42-52); Hemoglobin 13.5 g/dl (14.0-18.0); Lymphocytes Absolute Auto 0.8 X10*3/uL (1.2-4.9); Lymphocytes Percent Auto 18.8 % (20-40); Mean Corpuscular HGB Conc 33.9 g/dl (31.0-36.0); Mean Corpuscular Hemoglobin 32.1 pg (27.0-33.0); Monocytes Absolute Auto 0.5 X10*3/uL (0.1-1.2); Monocytes Percent Auto 10.5 % (2-11); Neutrophils Absolute Auto 3.1 X10*3/uL (2.0-8.3); Neutrophils Percent Auto 68.7 % (45-73); White Blood Count 4.5 X10*3/uL (4.8-10.8)
[2021-07-12 13:16] LABS: Platelet Count 82 X10*3/uL (160-400)
[2021-07-12 13:27] LABS: Alanine Aminotransferase 15 U/L (0-40); Albumin Level 3.5 g/dL (3.5-5.0); Alkaline Phosphatase 73 U/L (39-117); Anion Gap 17 (12-20); Aspartate Amino Transferase 34 U/L (5-37); Bilirubin Direct 0.6 mg/dL (0.0-0.5); Bilirubin Total 1.6 mg/dL (0.0-1.0); Blood Urea Nitrogen 14 mg/dL (9-16); Calcium 9.4 mg/dL (8.4-10.2); Carbon Dioxide 25 mmol/L (22-29); Chloride 101 mmol/L (96-108); Estimated Glomerular Filt Rate > 60; Glucose Random 108 mg/dL (60-115); Potassium 3.1 mmol/L (3.3-5.1); Sodium 140 mmol/L (135-145); Total Protein 7.2 g/dL (6.5-8.0)
== END 2021-07-12 10:40 | disposition home or self-care (01) ==
LOC: HO.LAB 10:39
PROVIDERS: Absent Provider Physician Assistant Surgical; PCP Internal Medicine; Visit Provider Physician Assistant
DX: R10.9 Unspecified abdominal pain (principal)
CPT/HCPCS: 36415; 80048; 80076; 85025; 99212

== ENCOUNTER 2021-07-12 13:00 | Inpatient (IN) | payer OTHER, SELFPAY ==
--- NOTE | ~2021-07-12 | CT_ITS ---
EXAMINATION: CT ABDOMEN AND PELVIS WITH CONTRAST CLINICAL INFORMATION: Severe abdominal pain. History gastric sleeve. COMPARISON: Ultrasound abdomen 03/08/2021. TECHNIQUE: Multidetector volumetric images were obtained from the superior aspect of the liver through the pubic symphysis following administration 100 mL of Omnipaque 350 intravenous contrast. Sagittal and coronal reformatted images were obtained on the technologist's workstation. Oral contrast: Yes This CT examination was performed using dose optimization techniques as appropriate, variously including the following: *Automated exposure control *Adjustment of mA and/or kV according to patient size (this includes techniques or standardized protocols for targeted exams where dose is matched to indication/reason for exam; i.e. extremities or head) *Use of iterative reconstruction technique DLP: 1433 mGy-cm FINDINGS: LUNG BASES: The visualized lung bases are unremarkable. LIVER, GALLBLADDER, AND BILIARY TREE: There is fine nodular contour to the liver surface consistent with the cirrhosis as noted on recent ultrasound. The hepatic parenchyma areas uniform in attenuation. There is no parenchymal lesion or intraparenchymal biliary ductal dilatation. The gallbladder is unremarkable with no evidence of radiopaque gallstones, gallbladder wall thickening, or obvious pericholecystic inflammatory changes. PANCREAS: Unremarkable. SPLEEN: The spleen is enlarged measuring 19.8 cm sagittal dimension and 17.1 cm coronal dimension. The parenchyma is homogeneous. ADRENAL GLANDS: There is a benign uniform fatty attenuation left adrenal myelolipoma lipoma measuring approximately 3.7 cm. Unremarkable right adrenal. KIDNEYS AND URETERS: The right kidney is scarred and atrophic, similar to recent ultrasound. The left kidney is normal in size and contour and shows no hydronephrosis, hydroureter, calculi, or perinephric stranding. BLADDER: Unremarkable. GASTROINTESTINAL TRACT: There is no ascites, or fluid collection. The appendix is normal in caliber. There is some dense barium in the appendiceal lumen versus calcified appendicoliths. No periappendiceal inflammatory change. No bowel obstruction. There is questionable mild small bowel wall thickening in mid abdomen in region of venous thrombosis with turner sign on coronal image. No pneumatosis or free air or focal wall thickening. There has been prior gastric sleeve, unremarkable appearance. ABDOMINAL WALL: Small fat-containing umbilical hernia. LYMPH NODES: No lymphadenopathy. VASCULAR: There is enlarged distal inferior mesenteric vein and enlarged main portal vein with intraluminal low attenuation consistent with venous thrombosis. There is mild stranding around the distal inferior mesenteric vein and proximal portal vein in the central mesentery. Thrombus likely extends into the proximal left and right portal veins. There are splenorenal varices left upper quadrant with normal enhancement. The abdominal aorta is normal in caliber. IVC unremarkable. PELVIC VISCERA: Unremarkable. OSSEOUS STRUCTURES: Degenerative disc changes greatest at L2-L3. No acute bony abnormality. Results called and discussed with Dr. Esparza in the Emergency Department at [address]/CT abdomen pelvis w con IMPRESSION: 1. Thrombosis distal inferior mesenteric vein and main portal vein with extension into the right and left portal veins. Cirrhosis with splenomegaly and splenorenal varices. No ascites. 2. Mild central mesenteric stranding in region of venous thrombosis. Borderline thickening mid small bowel. No pneumatosis or obstruction. Status post prior gastric sleeve, unremarkable. 3. Benign left adrenal myelolipoma 3.7 cm. 4. Atrophic right kidney with scarring. Unremarkable left kidney. No hydronephrosis.
[2021-07-12 13:07] VITALS: BP 150/83; PULSE 65; RESP 18; TEMP 37.1; O2SAT 100; BMI 57.4
--- NOTE | 2021-07-12 13:48 | ED.NAVMDI ---
HPI - Nausea/Vomiting/Diarrhea General Chief complaint: Nausea/Vomiting/Diarrhea Stated complaint: BACK PAIN Time Seen by Provider: 07/12/21 13:39 Source: patient Mode of arrival: ambulatory Limitations: no limitations History of Present Illness HPI Narrative: 41-year-old male morbid obesity status post laparoscopic sleeve gastrectomy with diaphragmatic hernia repair done in 05/10/2021, patient started to have abdominal pain 5 days ago with nausea and vomiting, pain improved but now pain is back again, patient been having nausea, vomiting nonbloody vomitus, and nonbloody watery diarrhea. Declined any fever or chills, no recent travel. Related Data Home Medications Medication Instructions Recorded Confirmed calcium carbonate 500 mg calcium 500 mg PO DAILY 05/25/21 07/05/21 (1,250 mg) tablet (Calcium 500) [id number] 45 mg-folic cap PO 05/25/21 07/05/21 acid 800 mcg-vit K 120 mcg capsule (Bariatric Multivitamins) Previous Rx's Medication Instructions Recorded furosemide 20 mg tablet (Lasix) 20 mg PO QAM 60 Days #60 tab 07/05/21 potassium chloride 20 mEq 40 meq PO DAILY 2 Days #4 tab 07/12/21 tablet,extended release Allergies Allergy/AdvReac Type Severity Reaction Status Date / Time No Known Allergies Allergy Verified 07/05/21 12:53 Review of Systems Review of Systems: All other systems are reviewed and are negative Constitutional: Reports as per HPI and Reports no additional constitutional complaints Eyes: Reports as per HPI and Reports no additional eye complaints Reports system reviewed and no additional complaints, except as documented Cardiovascular: Reports as per HPI and Reports no additional cardiovascular complaints Respiratory: Reports as per HPI and Reports no additional respiratory complaints Gastrointestinal: Reports as per HPI and Reports no additional gastrointestinal complaints Genitourinary: Reports no additional female genitourinary complaints Musculoskeletal: Reports no additional musculoskeletal complaints Skin/Breast: Reports system reviewed and no additional complaints, except as docu Psychiatric: Reports no additional psychiatric complaints Endocrine: Reports no additional endocrine complaints Hematologic/Lymphatic: Reports no additional hematologic/lymphatic complaints Allergic/Immunologic: Reports no additional allergic/immunologic complaints Reports system reviewed and no additional complaints, except as documented and Reports Abnormal speech present PMFSH Past Medical History Medical History Cellulitis Cirrhosis of liver without ascites Congestive heart failure COVID-19 vaccine series completed Essential hypertension Hiatal hernia HTN (hypertension) Major depression, single episode Moderate major depression, single episode Morbid obesity Personal history of COVID-19 Preoperative examination Shortness of breath Super obesity Trauma left hip Type 2 diabetes mellitus UTI (urinary tract infection) Vitamin A deficiency Vitamin B1 deficiency Surgical History H/O discectomy History of repair of hiatal hernia S/P laparoscopic sleeve gastrectomy Family History Family History Father Type 2 diabetes mellitus Heart disease Kidney failure Mother Obesity (BMI 30-39.9) Hypertension Brother No problems noted. Brother No problems noted. Other Mental health disorder Substance use disorder Social History Social History Housing: Apartment Are you a primary home health care provider to a significant other at home: No Do you presently have visiting nurse or other home services: No Alcohol intake: never Patient Tobacco Use Status: Never used Tobacco Use of substances other than those prescribed or required for medical reasons: No Advance Directives: No Advance Directives Information Provided: No service: No Current occupational status: unemployed Physical Exam Vital Signs: Vital Signs: Last Vital Signs Temp 98.7 F 07/12/21 13:07 Pulse 62 07/12/21 15:40 Resp 18 07/12/21 15:40 BP 154/67 H 07/12/21 15:40 Pulse Ox 100 07/12/21 15:40 Body Mass Index 57.4 Vital signs have been reviewed as appeared to be correct. Blood pressure elevated. Heart rate normal. Respiration rate normal. Temperature normal. Oxygen saturation normal. Appearance: Alert. Oriented X3. No acute distress. Head: Normal external exam. Normocephalic. Atraumatic. No Moffett signs noted. No raccoon eyes noted Eyes: PERRLA. EOMI. Conjunctiva and sclera normal. Eyelids normal. ENT: TM's Normal. Pharynx normal. Uvula midline. Moist mucous membranes. No trismus noted. No drooling noted. No muffled voice noted. Neck: Normal inspection. Neck supple. FROM. No adenopathy. Thyroid Normal. No meningeal signs. No neck mass noted. CVS: Normal heart rate and rhythm. Heart sound normal. No murmurs noted. Pulses normal throughout. Respiratory: No respiratory distress. Painless inspiration. Breath sounds normal. No wheezes/rales/rhonchi noted. Chest nontender. No accessory muscle usage noted or decreased air movement noted. Abdomen: Obese soft, diffuse mild tenderness with no rebound tenderness, no guarding. Bowel sounds normal in all 4 quadrants. No distention noted. No organomegaly noted. No visible injury noted. Back: No CVA tenderness. Full range of motion noted. Skin: Skin warm and dry. Normal skin color. Normal skin turgor. No rashes/lesions/lacerations noted. Extremities: No lower extremity edema. Extremities exhibit normal range of motion. Extremities nontender. Neuro: Oriented X 3. Cranial nerve exam: II-XII are grossly intact No motor deficit. No sensory deficit. Reflexes normal. Course Course Course Narrative: Assessment and plan. 41-year-old male status post gastric sleeve [address] Ovalles returned today for abdominal pain CT of the abdomen showed portal vein thrombosis, the case discussed with Dr. Sarkar who recommending start patient on alcohol drip and admit the patient, the case also discussed with Mae Denny [facility] for bariatric surgery recommending to admit the patient to medicine and they will consult with them. MDM - Nausea/Vomiting/Diarrhea Lab Data Attestation: I reviewed the patient's lab results. Labs: Lab Results 07/12/21 Range/Units 13:57 Lipase 48 (8-78) U/L Imaging Data CT scan - abdomen: Radiologist's impression: Portal vein thrombosis with liver cirrhosis. Discharge Plan Discharge Clinical Impression: Abdominal pain, Portal vein thrombosis Patient Disposition: Admitted As Inpatient
[2021-07-12] MEDS: ondansetron HCL 4 MG/2 ML VIAL IVPUSH ×3 (14:04→22:15)
[2021-07-12] MEDS: 0.9 % Sodium Chloride 1,000 ML 999 ML IVCONT (14:05)
--- NOTE | 2021-07-12 14:14 | PC.NURSE ---
Pt presents to ED with complaints of worsening abd pain and nausea for the last 5-6 days. Pt states it is worse every time he tries to eat. Pt had gastric bypass in May and has not had any complications since then. IV established. Pt has NS infusing and Zofran administered IV. Pt is drinking PO contrast for CT.
[2021-07-12 14:22] LABS: Lipase 48 U/L (8-78)
[2021-07-12] MEDS: Morphine Sulfate 2 MG/ML CARTRIDGE IVPUSH (14:44)
[2021-07-12] MEDS: iohexoL 350 MG/ML 100 ML INFUS..BTL IV (15:15)
[2021-07-12 15:40] VITALS: BP 154/67; PULSE 62; RESP 18; O2SAT 100
--- NOTE | 2021-07-12 15:57 | PC.NURSE ---
Pt has continued complaints of nausea. MD notified and pt given an additional dose of Zofran IV.
[2021-07-12 17:19] LABS: COVID-19 Test Negative (Negative)
[2021-07-12 17:40] LABS: PLT CLUMP 1; Red Cell Distribution Width 14.6 % (11.0-16.0)
[2021-07-12 17:42] LABS: Hematocrit 39.4 % (42-52); Hemoglobin 13.2 g/dl (14.0-18.0); Mean Corpuscular HGB Conc 33.5 g/dl (31.0-36.0); Mean Corpuscular Hemoglobin 31.9 pg (27.0-33.0); Mean Corpuscular Volume 95.2 fL (80-98); Mean Platelet Volume 10.9 fL (9.4-12.4); Red Blood Count 4.14 X10*6/uL (4.60-5.80); White Blood Count 5.4 X10*3/uL (4.8-10.8)
[2021-07-12 17:44] LABS: Platelet Count 83 X10*3/uL (160-400)
[2021-07-12 17:45] LABS: INTERNATIONAL NORM RATIO 1.5 (0.9-1.1); Prothrombin Time 16.7 SEC (9.9-13.0)
[2021-07-12 17:48] LABS: PTT Heparin Drip 35.2 SEC (53-77.9)
[2021-07-12 19:02] VITALS: BMI 55.7
[2021-07-12] MEDS: Heparin Sodium,Porcine 5,000 UNIT/ML VIAL 10000 UNIT IVPUSH (19:04)
[2021-07-12 19:18] VITALS: RESP 18
[2021-07-12] MEDS: Morphine Sulfate 4 MG/ML CARTRIDGE IVPUSH (19:18)
--- NOTE | 2021-07-12 19:20 | HP_ITS ---
DATE OF SERVICE: 07/12/2021 CHIEF COMPLAINT: Abdominal pain. HISTORY OF PRESENTING ILLNESS: This is a 41-year-old gentleman with past medical history significant for cirrhosis of liver due to fatty liver as well as history of recent gastric sleeve surgery in May of 2021 for morbid obesity, history of essential hypertension, history of major depression, history of diabetes mellitus type 2, currently not on medication, presented to [facility] since he was not feeling well in last 4 to 5 days. He developed lower abdominal discomfort, nausea, started feeling lightheaded and dizzy, which he felt related to decreased p.o. intake due to persistent nausea. He also was unable to sleep and had no bowel movements. Therefore, he called the bariatric nurse and was recommended to take milk of mag, after which he had some loose stools that were dark colored, but he persistently had lower abdominal discomfort that was gradually getting worse. Therefore, he came to [facility], where he was noted to have stable white cell count and hematocrit. He was noted to have mild hypokalemia, stable renal function. Total bilirubin was elevated at 1.6. A CAT scan of the abdomen and pelvis showed that he has thrombosis of distal inferior mesenteric vein, main portal vein with extension into the right and the left portal vein. He was also noted to have cirrhosis with splenomegaly and splenorenal varices. There was no ascites noted. There was mild central mesenteric stranding in the region of the venous thrombosis and borderline thickening of the mid small bowel. There was no obstruction or pneumatosis noted. Case was discussed with vascular surgeon, Dr. Sarkar and he recommended the patient to be started on IV heparin drip, therefore the patient is being admitted with a diagnosis of significant portal vein thrombosis as well as distal inferior mesenteric vein thrombosis. PAST MEDICAL HISTORY: Significant for: 1. History of type 2 diabetes mellitus. 2. History of obesity, status post gastric sleeve surgery in May of 2021. 3. History of congestive heart failure. 4. Essential hypertension, history of hiatal hernia, history of major depression. 5. Personal history of COVID-19 infection. 6. Left hip trauma. 7. History of UTI. 8. History of vitamin A and B1 deficiency. PAST SURGICAL HISTORY: 1. Status post laparoscopic sleeve gastrectomy. 2. Status post repair of hiatal hernia. 3. History of . FAMILY HISTORY: 1. Father has type 2 diabetes mellitus, heart disease, as well as kidney failure. 2. Mother has obesity and hypertension. His other siblings have no medical issues. SOCIAL HISTORY: The patient denies history of smoking. Denies history of alcohol. He stopped using marijuana a year ago. He works in sales. ALLERGIES: HE HAS NO KNOWN DRUG ALLERGIES. MEDICATIONS: On admission are; 1. Calcium tablets daily. 2. Lasix 20 mg daily. 3. Multivitamin 1 capsule daily. 4. Potassium 40 mEq p.o. daily. REVIEW OF SYSTEMS: ANY COMMODITY BUYER: His lightheadedness has improved after IV hydration. He denies any headache. RESPIRATORY: He denies any shortness of breath or cough. GENERAL: He denies any fever or chills. : He denies any urinary frequency or urgency. All other systems are reviewed and negative. PHYSICAL EXAMINATION: GENERAL: The patient is sitting comfortably, does not appear to be in acute distress. VITAL SIGNS: BP 154/67 with a pulse of 62, respiratory rate 18, and O2 saturation of 100% on room air. He is afebrile. HEENT: Pupils equal, round, and reactive to light and accommodation. Anicteric sclerae. NECK: Supple. No JVD. LUNGS: Clear to auscultation bilaterally. HEART: Regular rate and rhythm. ABDOMEN: Morbidly obese. Mild tenderness to palpation lower abdomen. There is no rebound, rigidity, or guarding noted. EXTREMITIES: He has bilateral trace pitting edema. SKIN: Has no rashes. NEUROLOGIC: Nonfocal. PSYCH: Appropriate affect. LABORATORY DATA: Showed a WBC of 4.5, hematocrit of 39.8, hemoglobin 13.5, platelet count of 82. Sodium of 140, potassium 3.1, chloride 101, creatinine 105, total bilirubin 1.6 with a direct bilirubin of 0.6, total protein 7.2, lipase of 48. CT abdomen and pelvis as mentioned earlier. ASSESSMENT AND PLAN: This is a 41-year-old gentleman with past medical history of type 2 diabetes mellitus, congestive heart failure, morbid obesity, as well as cirrhosis likely due to fatty liver associated with morbid obesity, who presented to [facility] with symptoms of persistent nausea, lower abdominal discomfort, and dark-colored stool. The patient diagnosed to have inferior mesenteric vein as well as portal vein thrombosis and will be admitted for continued monitoring and treatment. 1. 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 The patient will be admitted to intermediate care unit, will be started on IV heparin drip. We will obtain vascular surgery consultation. We will follow CBC. 2. Hypokalemia. Will replace potassium. Hold Lasix. 3. History of congestive heart failure. Currently, the patient is compensated with no evidence of heart failure. We will monitor clinical course closely. 4. History of diabetes mellitus type 2, currently not on home medication. Follow blood sugar b.i.d. 5. Morbid obesity. The patient is status post gastric sleeve surgery, following the diet and has lost total 65 pounds since his surgery. 6. Deep vein thrombosis prophylaxis. The patient is on IV heparin. 7. Code status, full code. MD TRUNG Lloyd/MARCELLE / [id number] MTDD
[2021-07-12] MEDS: Heparin Sodium,Porcine/1/2NS 25,000 UNIT/250 ML IV.SOLN 24.99 UNIT IVCONT (19:41)
--- NOTE | 2021-07-12 19:43 | MHC.CM.PN ---
CM met with admitted pt with bed assignment pending. Pt admitted with portal vein thrombosis. Pt had sleeve gastrectomy- initial weight 576 lbs. Current weight 423!. Pt is fully vaccinated with Moderna-LD in February. HCP is on file. HCP/mother Stephanie Montes ([phone]). Pt lives with parents. Uses no DME or Services. D/C plan is home without services. Transportation to be arranged by patient. CM to follow for d/c needs.
[2021-07-12 20:49] VITALS: BP 149/52; PULSE 65; RESP 17; TEMP 36.6; O2SAT 100
--- NOTE | 2021-07-13 01:51 | PC.NURSE ---
PTT draw was delayed due to poor access. Multiple attempts made to blood lab.
[2021-07-13 02:34] LABS: PTT Heparin Drip 141.5 SEC (53-77.9)
--- NOTE | 2021-07-13 02:47 | PC.NURSE ---
PT HAS VERY POOR ACCESS. DOES HAVE IV W/GOOD ACCESS IN R AC. MULTIPLE ATTEMPTS BY MULTIPLE RNS W/NO SUCCESS. SPOKE W/LAB WHO RECOMMEDED LINE DRAW AFTER 30 MIN NO HEPARIN THROUGH LINE, RUN FLUIDS THROUGH LINE, 2 LARGE WASTE TUBES THEN DRAW OFF LINE.
[2021-07-13 04:00] VITALS: BMI 55.7
[2021-07-13 04:14] VITALS: BP 144/47; PULSE 66; RESP 20; TEMP 36.6; O2SAT 98
--- NOTE | 2021-07-13 04:15 | PC.NURSE ---
LAB UNABLE TO DRAW PTT-HD.PT IS VERY DIFFICULT STICK.AM LAB TEAM IN AT 0500 TO DRAW PTT-HD.NURSING RADIOLOGY ASST AWARE.
[2021-07-13 05:30] LABS: Hematocrit 37.5 % (42-52); Hemoglobin 12.4 g/dl (14.0-18.0); Mean Corpuscular HGB Conc 33.1 g/dl (31.0-36.0); Mean Corpuscular Hemoglobin 31.6 pg (27.0-33.0); Mean Corpuscular Volume 95.7 fL (80-98); Mean Platelet Volume 10.9 fL (9.4-12.4); Platelet Count 58 X10*3/uL (160-400); Red Blood Count 3.92 X10*6/uL (4.60-5.80); Red Cell Distribution Width 14.6 % (11.0-16.0)
[2021-07-13 05:37] LABS: INTERNATIONAL NORM RATIO 1.5 (0.9-1.1); Prothrombin Time 16.9 SEC (9.9-13.0)
[2021-07-13 05:40] LABS: PTT Heparin Drip 38.9 SEC (53-77.9)
[2021-07-13 05:43] LABS: Anion Gap 14 (12-20); Blood Urea Nitrogen 12 mg/dL (9-16); Calcium 8.7 mg/dL (8.4-10.2); Carbon Dioxide 26 mmol/L (22-29); Chloride 103 mmol/L (96-108); Creatinine Clr Calc Pharmacy 166.5; Estimated Glomerular Filt Rate > 60; Glucose Random 102 mg/dL (60-115); Potassium 3.4 mmol/L (3.3-5.1); Sodium 140 mmol/L (135-145)
[2021-07-13 07:43] VITALS: BP 123/58; PULSE 59; RESP 20; TEMP 36.8; O2SAT 96
[2021-07-13 07:55] LABS: Glucose, Whole Blood 82 mg/dL (60-115)
[2021-07-13] MEDS: Morphine Sulfate 4 MG/ML CARTRIDGE IVPUSH ×2 (08:31→16:49)
[2021-07-13] MEDS: ondansetron HCL 4 MG/2 ML VIAL IVPUSH ×2 (08:32→16:49)
[2021-07-13 09:18] LABS: Appearance Urine CLEAR; Color Urine YELLOW; Glucose Urine UA NEG (NEG); Leukocyte Esterase Urine NEG (NEG); Nitrite Urine NEG (NEG); Urine Blood NEG (NEG); Urine Ketones 15 MG/DL (NEG); Urine Protein NEG (NEG-TRACE)
[2021-07-13 10:59] LABS: Glucose, Whole Blood 117 mg/dL (60-115)
[2021-07-13 11:22] VITALS: BP 158/72; PULSE 64; RESP 18; TEMP 36.6; O2SAT 95
[2021-07-13 12:20] LABS: PTT Heparin Drip 80.8 SEC (53-77.9)
--- NOTE | 2021-07-13 13:42 | PM.CNGS ---
History of Present Illness Consult details Consult date: 07/13/21 Reason for consult: other (Portal vein thrombosis) Narrative: Pleasant 41-year-old gentleman status post laparoscopic gastric sleeve resection had been doing fairly well postoperatively over the last day or 2 has developed some abdominal pain he presented to the emergency room underwent CT angiogram which demonstrated portal vein thrombosis. He now presents for vascular evaluation Review of Systems Review of Systems: Yes all other systems are reviewed and are negative Constitutional: Constitutional: Reports no additional constitutional complaints ENT: Reports Normal hearing present Cardiovascular: Cardiovascular: Denies chest pain, Denies chest pain at rest, Denies chest pain with activity and Denies pedal edema Respiratory: Respiratory: Denies cough Gastrointestinal: Gastrointestinal: Denies abdominal pain Musculoskeletal: Musculoskeletal: Denies abnormal gait, Denies muscle cramps and Denies radiating pain into limb Integumentary/Breasts: Skin/Breast: Denies skin ulcer and Denies wounds Neurologic: Reports Normal hearing present and Denies abnormal gait Psychiatric: Psychiatric: Reports no additional psychiatric complaints PMFSH Past Medical History Medical History Cellulitis Cirrhosis of liver without ascites Congestive heart failure COVID-19 vaccine series completed Essential hypertension Hiatal hernia HTN (hypertension) Major depression, single episode Moderate major depression, single episode Morbid obesity Personal history of COVID-19 Preoperative examination Shortness of breath Super obesity Trauma left hip Type 2 diabetes mellitus UTI (urinary tract infection) Vitamin A deficiency Vitamin B1 deficiency Family History Family History Father Type 2 diabetes mellitus Heart disease Kidney failure Mother Obesity (BMI 30-39.9) Hypertension Brother No problems noted. Brother No problems noted. Other Mental health disorder Substance use disorder Surgical History Surgical History H/O discectomy History of repair of hiatal hernia S/P laparoscopic sleeve gastrectomy Social History Social History Household Members: Other Household Members Other:: parents Housing: Apartment Are you a primary care program director to a significant other at home: No Do you presently have visiting nurse or other home services: No Alcohol intake: never Patient Tobacco Use Status: Never used Tobacco Use of substances other than those prescribed or required for medical reasons: No Currently Displaying Signs/Symptoms of Drug Intoxication Withdrawal: No Have you been hit, kicked, punched, or otherwise hurt by someone within the past year? If so, by whom?: No Do you feel safe in your current relationship?: No Current Relationship Is there a partner from a previous relationship who is making you feel unsafe now?: No Are you made to feel afraid or neglected: No Advance Directives: No Advance Directives Information Provided: No Do you have thoughts of harming others: None Do you have a plan to hurt others: No Plan Recently lost weight without trying: No Poor oral hygiene: No service: No Current occupational status: unemployed Meds Allergies Allergy/AdvReac Type Severity Reaction Status Date / Time No Known Allergies Allergy Verified 07/05/21 12:53 Active Medications: Current Medications Generic Name Dose Route Start Last Admin Trade Name Freq PRN Reason Stop Dose Admin Acetaminophen 650 mg 07/12/21 17:07 Acetaminophen 325 Mg Tablet PO Q6H PRN Pain, Mild (Pain Scale 1-3) Heparin Sodium (Porcine) 7,500 unit 07/12/21 19:21 Heparin Sodium,Porcine 5,000 Unit/Ml Vial 40 unit/kg (7500 unit) IVPUSH PROTOCOL BOLUS PRN 40 unit/kg - Heparin Protocol Protocol Heparin Sodium (Porcine) 10,000 unit 07/12/21 19:21 Heparin Sodium,Porcine 5,000 Unit/Ml Vial IVPUSH PROTOCOL BOLUS PRN 80 unit/kg - Heparin Protocol Protocol Heparin Sodium/Sodium Chloride 25,000 unit in 250 mls @ 0 mls/hr 07/12/21 19:30 07/13/21 12:30 IVCONT Infused .Q0M ROBERTO Titration Protocol Per Protocol Melatonin 6 mg 07/12/21 17:12 Melatonin 3 Mg Tablet PO BEDTIME PRN Insomnia Morphine Sulfate 4 mg 07/12/21 17:12 07/13/21 08:31 Morphine Sulfate 4 Mg/Ml Cartridge IVPUSH 4 mg Q4H PRN Administration Pain, Severe (Pain Scale 7-10) Protocol Ondansetron HCl 4 mg 07/12/21 17:13 07/13/21 08:32 Ondansetron Hcl 4 Mg/2 Ml Vial IVPUSH 4 mg Q8H PRN Administration Nausea Home Medications Medication Instructions Recorded Confirmed Last Taken Type calcium carbonate 500 mg calcium 500 mg PO DAILY 05/25/21 07/12/21 07/11/21 History (1,250 mg) tablet (Calcium 500) [id number] 45 mg-folic 45 cap PO DAILY 05/25/21 07/12/21 07/11/21 History acid 800 mcg-vit K 120 mcg capsule (Bariatric Multivitamins) Physical Exam Vital Signs: Vital Signs: Last Vital Signs Temp 97.9 F 07/13/21 11:22 Pulse 64 07/13/21 11:22 Resp 18 07/13/21 11:22 BP 158/72 H 07/13/21 11:22 Pulse Ox 95 07/13/21 11:22 Body Mass Index 55.7 Const: General: cooperative, healthy appearing and comfortable Orientation/consciousness: oriented to person, oriented to place and oriented to time HENMT: Head: Yes normal to inspection Neck: Neck: Yes normal visual inspection Carotids: no bruits Chest: Chest palpation & inspection: normal inspection of the chest Resp: Effort & Inspection: normal respiratory effort and able to speak in complete sentences Auscultation: clear to auscultation bilaterally, no crackles, no rales, no rhonchi and no wheezes Cardio: Rate: regular rate Rhythm: regular rhythm Heart sounds: S1 normal heart sound present and S2 normal heart sound present Bruits: no carotid bruits Peripheral pulses: Peripheral pulses 2+ throughout GI: Inspection: Yes normal to inspection Skin: Wounds: no wounds Hair: normal Neuro: General: oriented to person, oriented to place and oriented to time Cranial nerves: Yes CN's II-XII intact bilaterally and Yes Normal hearing present Cognition (Neuro): normal cognition Motor exam (neuro): 5/5 motor strength present throughout Extrem: Other: venous exam: No significant superficial varicosities or spider telangiectasias, minimal edema General: No clubbing, No cyanosis and No edema Psych: Appearance: grossly normal Mental Status: mental status grossly normal Speech and movement: Normal speech and movement present Results Labs Result diagrams: 07/13/21 05:17 07/13/21 05:17 Labs: Abnormal lab results 07/12/21 07/12/21 07/13/21 Range/Units 17:30 17:30 02:08 WBC (4.8-10.8) X10*3/uL RBC 4.14 L (4.60-5.80) X10*6/uL Hgb 13.2 L (14.0-18.0) g/dl Hct 39.4 L (42-52) % Plt Count 83 L (160-400) X10*3/uL PT 16.7 H (9.9-13.0) SEC INR 1.5 H (0.9-1.1) PTT (Heparin Protocol) 35.2 L 141.5 H* D (53-77.9) SEC POC Glucose (60-115) mg/dL 07/13/21 07/13/21 07/13/21 Range/Units 05:17 05:17 05:17 WBC 3.0 L (4.8-10.8) X10*3/uL RBC 3.92 L (4.60-5.80) X10*6/uL Hgb 12.4 L (14.0-18.0) g/dl Hct 37.5 L (42-52) % Plt Count 58 L D (160-400) X10*3/uL PT 16.9 H (9.9-13.0) SEC INR 1.5 H (0.9-1.1) PTT (Heparin Protocol) 38.9 L D (53-77.9) SEC POC Glucose (60-115) mg/dL 07/13/21 07/13/21 Range/Units 10:49 12:00 WBC (4.8-10.8) X10*3/uL RBC (4.60-5.80) X10*6/uL Hgb (14.0-18.0) g/dl Hct (42-52) % Plt Count (160-400) X10*3/uL PT (9.9-13.0) SEC INR (0.9-1.1) PTT (Heparin Protocol) 80.8 H D (53-77.9) SEC POC Glucose 117 H (60-115) mg/dL Short CBC 07/12/21 07/13/21 07/13/21 Range/Units 17:30 05:17 05:17 WBC 5.4 Cancelled 3.0 L (4.8-10.8) X10*3/uL Hgb 13.2 L Cancelled 12.4 L (14.0-18.0) g/dl Hct 39.4 L Cancelled 37.5 L (42-52) % Plt Count 83 L Cancelled 58 L D (160-400) X10*3/uL BMP 07/13/21 05:17 Sodium 140 Potassium 3.4 Chloride 103 Carbon Dioxide 26 BUN 12 Creatinine 0.98 Calcium 8.7 D Urine 07/13/21 Range/Units 09:00 Urine Color YELLOW Urine Appearance CLEAR Urine pH 6.0 (5.0-8.0) Ur Specific [place] 1.020 (1.005-1.025) Urine Protein NEG (NEG-TRACE) MG/DL Urine Glucose (UA) NEG (NEG) MG/DL All other labs normal. Imaging Abdomen CT scan report/results: report reviewed (Portal vein thrombosis extending to inferior mesenteric vein) and image reviewed Assessment and Plan (1) Portal vein thrombosis: Status: Acute In short patient is stable on heparin drip. At the current time would recommend formal anticoagulation. Should this become a further problem I do believe he may be better served at a tertiary care center. He is currently being followed by GI as well. He will follow up with me on an as-needed basis. Should additional workup be required, he may require Interventional expertise that is provided at [facility] or [facility]. This was all discussed with the patient in detail. Thank you for allowing us to assist in this patient's care. If there are any questions or concerns please do not hesitate to contact us. Procedures Date of Service Date of Service: 07/13/21
--- NOTE | 2021-07-13 15:34 | HO.PM.IMPN ---
Subjective Subjective Date of Service: 07/13/21 Interval History: Patient complaining of nausea responding to antiemetics, no diarrhea, abdominal pain has improved, no acute overnight issues. Review of Systems General no headache, no dizziness, no fever chills. CVS no chest pain, no palpitation. Respiratory no cough, no sob. Gastrointestinal nausea, no vomiting, no diarrhea Physical Exam Vital Signs: Vital Signs: Last Vital Signs Temp 97.9 F 07/13/21 11:22 Pulse 64 07/13/21 11:22 Resp 18 07/13/21 11:22 BP 158/72 H 07/13/21 11:22 Pulse Ox 95 07/13/21 11:22 Body Mass Index 55.7 General no acute distress. Neck no JVD. CVS regular rate rhythm, Respiratory lungs clear to auscultation, no respiratory distress, no wheeze, no rhonchi. Gastrointestinal abdomen soft, distended, mild lower abdominal tenderness with palpation, bowel sounds audible, no guarding , no rigidity. Extremities trace edema. Neuro nonfocal . Skin no rash Objective Data Active Medications Acetaminophen (Acetaminophen 325 Mg Tablet) 650 mg PO Q6H PRN PRN Reason: Pain, Mild (Pain Scale 1-3) Heparin Sodium (Porcine) (Heparin Sodium,Porcine 5,000 Unit/Ml Vial) 7,500 unit 40 unit/kg (7500 unit) IVPUSH PROTOCOL BOLUS PRN; Protocol PRN Reason: 40 unit/kg - Heparin Protocol Heparin Sodium (Porcine) (Heparin Sodium,Porcine 5,000 Unit/Ml Vial) 10,000 unit IVPUSH PROTOCOL BOLUS PRN; Protocol PRN Reason: 80 unit/kg - Heparin Protocol Heparin Sodium/Sodium Chloride () 25,000 unit in 250 mls @ 0 mls/hr IVCONT .Q0M [facility]; Protocol Last Titration: 07/13/21 12:30 Dose: 7.4 units/kg/hr, 13.8 mls/hr Documented by: AURELIA Cosigned by: ROBERTO Melatonin (Melatonin 3 Mg Tablet) 6 mg PO BEDTIME PRN PRN Reason: Insomnia Morphine Sulfate (Morphine Sulfate 4 Mg/Ml Cartridge) 4 mg IVPUSH Q4H PRN; Protocol PRN Reason: Pain, Severe (Pain Scale 7-10) Last Admin: 07/13/21 08:31 Dose: 4 mg Documented by: AURELIA Ondansetron HCl (Ondansetron Hcl 4 Mg/2 Ml Vial) 4 mg IVPUSH Q8H PRN PRN Reason: Nausea Last Admin: 07/13/21 08:32 Dose: 4 mg Documented by: AURELIA Labs CBC & Chem 7: 07/13/21 05:17 07/13/21 05:17 Labs: Laboratory Results - last 24 hr 07/12/21 07/12/21 07/12/21 16:53 17:30 17:30 MCV 95.2 MCH 31.9 MCHC 33.5 RDW 14.6 Plt Count 83 L MPV 10.9 Absolute Nucleated RBC 0.000 Nucleated RBC % (auto) 0.0 PT 16.7 H INR 1.5 H PTT (Heparin Protocol) 35.2 L Anion Gap Estim Creat Clear Calc Estimated GFR POC Glucose Random Glucose Calcium Urine Color Urine Appearance Urine pH Ur Specific [place] Urine Protein Urine Glucose (UA) Urine Ketones Urine Blood Urine Nitrite Ur Leukocyte Esterase COVID-19 (KARINA) Negative COVID-19 Clin Com See Note 07/13/21 07/13/21 07/13/21 02:08 05:17 05:17 MCV Cancelled MCH Cancelled MCHC Cancelled RDW Cancelled Plt Count Cancelled MPV Cancelled Absolute Nucleated RBC Cancelled Nucleated RBC % (auto) Cancelled PT 16.9 H INR 1.5 H PTT (Heparin Protocol) 141.5 H* D Anion Gap Estim Creat Clear Calc Estimated GFR POC Glucose Random Glucose Calcium Urine Color Urine Appearance Urine pH Ur Specific [place] Urine Protein Urine Glucose (UA) Urine Ketones Urine Blood Urine Nitrite Ur Leukocyte Esterase COVID-19 (KARINA) COVID-19 Clin Com 07/13/21 07/13/21 07/13/21 05:17 05:17 05:17 MCV 95.7 MCH 31.6 MCHC 33.1 RDW 14.6 Plt Count 58 L D MPV 10.9 Absolute Nucleated RBC 0.000 Nucleated RBC % (auto) 0.0 PT INR PTT (Heparin Protocol) 38.9 L D Anion Gap 14 Estim Creat Clear Calc 166.5 Estimated GFR > 60 POC Glucose Random Glucose 102 Calcium 8.7 D Urine Color Urine Appearance Urine pH Ur Specific [place] Urine Protein Urine Glucose (UA) Urine Ketones Urine Blood Urine Nitrite Ur Leukocyte Esterase COVID-19 (KARINA) COVID-19 Clin Com 07/13/21 07/13/21 07/13/21 07:50 09:00 10:49 MCV MCH MCHC RDW Plt Count MPV Absolute Nucleated RBC Nucleated RBC % (auto) PT INR PTT (Heparin Protocol) Anion Gap Estim Creat Clear Calc Estimated GFR POC Glucose 82 117 H Random Glucose Calcium Urine Color YELLOW Urine Appearance CLEAR Urine pH 6.0 Ur Specific [place] 1.020 Urine Protein NEG Urine Glucose (UA) NEG Urine Ketones 15 Urine Blood NEG Urine Nitrite NEG Ur Leukocyte Esterase NEG COVID-19 (KARINA) COVID-19 Clin Com 07/13/21 12:00 MCV MCH MCHC RDW Plt Count MPV Absolute Nucleated RBC Nucleated RBC % (auto) PT INR PTT (Heparin Protocol) 80.8 H D Anion Gap Estim Creat Clear Calc Estimated GFR POC Glucose Random Glucose Calcium Urine Color Urine Appearance Urine pH Ur Specific [place] Urine Protein Urine Glucose (UA) Urine Ketones Urine Blood Urine Nitrite Ur Leukocyte Esterase COVID-19 (KARINA) COVID-19 Clin Com Assessment and Plan (1) Abdominal pain: Status: Acute (2) Portal vein thrombosis: Status: Acute (3) Cirrhosis of liver without ascites: Status: Acute (4) S/P laparoscopic sleeve gastrectomy: Status: Acute (5) Hypertension, essential: Status: Acute (6) Diabetes 1.5, managed as type 2: Status: Acute (7) Morbid obesity with BMI of 60.0-69.9, adult: Status: Acute Assessment and Plan: 41 yo gentleman status post gastric sleeve surgery, with hiatal hernia repair on 05/10/2021, history of cirrhosis due to fatty liver presented to [facility] due to abdominal pain intractable nausea and diarrhea and diagnosed to have 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 Nausea, abdominal pain and diarrhea, is improving, continue IV heparin drip and supportive care, hematocrit is stable, case discussed with Dr. Sarkar he recommend oral anticoagulants Will continue IV heparin today and transition to oral meds at a.m. continue to follow CBC Case discussed with Dr. Espinoza, patient does not have acute surgical issues hold off on their consult and change diet to bariatric phase 3 diet diet. Hypokalemia.? Likely due to Lasix potassium normalized status post replacement Cirrhosis of liver stable lfts, outpatient follow-up with . History of congestive heart failure.? No acute decompensation ,hold lee History of diabetes mellitus type 2, currently not on home medication. Blood sugars stable Morbid obesity.? status post gastric sleeve surgery, following the diet and has lost total 65 pounds since his surgery. Deep vein thrombosis prophylaxis.? on IV heparin. Code status, full code. ? Quality Stroke Does the patient have a stroke diagnosis?: No VTE Prior VTE?: No VTE Risk Level:: Medical - moderate - high VTE Device Contraindication: Treatment Not Indicated VTE Drug Contraindication: N/A - Med Ordered
[2021-07-13 15:45] VITALS: BP 140/70; PULSE 62; RESP 19; TEMP 36.6; O2SAT 98
[2021-07-13 16:52] LABS: Glucose, Whole Blood 76 mg/dL (60-115)
[2021-07-13 19:16] VITALS: BP 136/58; PULSE 68; RESP 19; TEMP 36.9; O2SAT 95
[2021-07-13 19:25] LABS: Glucose, Whole Blood 75 mg/dL (60-115)
[2021-07-13 19:27] LABS: PTT Heparin Drip 66.2 SEC (53-77.9)
[2021-07-13] MEDS: Heparin Sodium,Porcine/1/2NS 25,000 UNIT/250 ML IV.SOLN 13.8 UNIT IVCONT (21:49)
[2021-07-13 23:31] VITALS: BP 136/55; PULSE 71; RESP 18; TEMP 36.5; O2SAT 98
[2021-07-14 01:53] LABS: PTT Heparin Drip 64.4 SEC (53-77.9)
[2021-07-14 02:59] VITALS: BP 145/75; PULSE 63; RESP 18; TEMP 36.4; O2SAT 97
[2021-07-14 07:22] VITALS: BP 124/61; PULSE 64; RESP 18; TEMP 37; O2SAT 96
[2021-07-14 07:24] LABS: Glucose, Whole Blood 90 mg/dL (60-115)
[2021-07-14] MEDS: Morphine Sulfate 4 MG/ML CARTRIDGE IVPUSH (08:27)
[2021-07-14 08:53] LABS: Hematocrit 38.4 % (42-52); Mean Corpuscular HGB Conc 33.9 g/dl (31.0-36.0); Mean Corpuscular Volume 94.6 fL (80-98); Mean Platelet Volume 11.3 fL (9.4-12.4); Red Blood Count 4.06 X10*6/uL (4.60-5.80); Red Cell Distribution Width 14.4 % (11.0-16.0); White Blood Count 4.2 X10*3/uL (4.8-10.8)
[2021-07-14 08:54] LABS: Platelet Count 78 X10*3/uL (160-400)
[2021-07-14 09:04] LABS: PTT Heparin Drip 67.7 SEC (53-77.9)
[2021-07-14 10:58] LABS: Glucose, Whole Blood 100 mg/dL (60-115)
[2021-07-14 11:41] VITALS: BP 125/58; PULSE 63; RESP 19; TEMP 36.7; O2SAT 97
--- NOTE | 2021-07-14 13:10 | MHC.CM.PN ---
Per MD, Patient is expected to be dc to home today (no services). CM will provide Patient with the 30 day free Eliquis trial coupon(MD aware).
--- NOTE | 2021-07-14 18:03 | P.DS_ITS ---
DS: Providers Provider Date of Service: 07/14/21 Date of admission: 07/12/21 17:07 Primary care physician: Riaz Hopson MD Consults: 07/12/21 17:15 Consult to Vascular Surgery Routine Consulting Provider: Petros Sarkar Reason for consultation: portal vein thrombosis Has provider been notified: No DS: Diagnosis Discharge Diagnosis (1) Abdominal pain: Status: Acute (2) Portal vein thrombosis: Status: Acute (3) Cirrhosis of liver without ascites: Status: Acute (4) S/P laparoscopic sleeve gastrectomy: Status: Acute (5) Hypertension, essential: Status: Acute (6) Diabetes 1.5, managed as type 2: Status: Acute (7) Morbid obesity with BMI of 60.0-69.9, adult: Status: Acute DS: Summary Hospital Course Hospital Course: History presenting illness CHIEF COMPLAINT:? Abdominal pain. ? HISTORY OF PRESENTING ILLNESS:? This is a 41-year-old gentleman with past medical history significant for cirrhosis of liver due to fatty liver as well as history of recent gastric sleeve surgery in May of 2021 for morbid obesity, history of essential hypertension, history of major depression, history of diabetes mellitus type 2, currently not on medication, presented to [facility] since he was not feeling well in last 4 to 5 days.? He developed lower abdominal discomfort, nausea, started feeling lightheaded and dizzy, which he felt related to decreased p.o. intake due to persistent nausea.? He also was unable to sleep and had no bowel movements.? Therefore, he called the bariatric nurse and was recommended to take milk of mag, after which he had some loose stools that were dark colored, but he persistently had lower abdominal discomfort that was gradually getting worse.? Therefore, he came to [facility], where he was noted to have stable white cell count and hematocrit.? He was noted to have mild hypokalemia, stable renal function.? Total bilirubin was elevated at 1.6. A CAT scan of the abdomen and pelvis showed that he has thrombosis of distal inferior mesenteric vein, main portal vein with extension into the right and the left portal vein.? He was also noted to have cirrhosis with splenomegaly and splenorenal varices.? There was no ascites noted.? There was mild central mesenteric stranding in the region of the venous thrombosis and borderline thickening of the mid small bowel.? There was no obstruction or pneumatosis noted.? Case was discussed with vascular surgeon, Dr. Sarkar and he recommended the patient to be started on IV heparin drip, therefore the patient is being admitted with a diagnosis of significant portal vein thrombosis as well as distal inferior mesenteric vein thrombosis. ? PAST MEDICAL HISTORY:? Significant for: 1. History of type 2 diabetes mellitus. 2. History of obesity, status post gastric sleeve surgery in May of 2021. 3. History of congestive heart failure. 4. Essential hypertension, history of hiatal hernia, history of major depression. 5. Personal history of COVID-19 infection. 6. Left hip trauma. 7. History of UTI. 8. History of vitamin A and B1 deficiency. ? PAST SURGICAL HISTORY:? 1. Status post laparoscopic sleeve gastrectomy. 2. Status post repair of hiatal hernia. 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 Sarkar he recommended oral anticoagulant and outpatient follow-up with him on as needed basis, patient is now being discharged home on Eliquis 10 mg twice daily for 1 week followed by Eliquis 5 mg b.i.d. he has been recommended to resume bariatric diet as before and to have outpatient follow-up with bariatric surgery for further dietary recommendation, in regard to his constipation he has been recommended to resume fiber tablets. ?Hypokalemia.? Likely due to Lasix , potassium normalized Cirrhosis of liver stable lfts, recommend outpatient follow-up with . History of congestive heart failure.? No acute decompensation , continue Lasix. History of diabetes mellitus type 2, currently not on home medication.? Blood sugars stable Time Spent with Patient Time attestation: Total time spent providing and/or coordinating discharge services: Discharge coordination time: Greater than 30 minutes Quality: Stroke Does the patient have a stroke diagnosis?: No Physical Exam Vital Signs: Vital Signs: Last Vital Signs Temp 98.0 F 07/14/21 11:41 Pulse 63 07/14/21 11:41 Resp 19 07/14/21 11:41 BP 125/58 L 07/14/21 11:41 Pulse Ox 97 07/14/21 11:41 Body Mass Index 55.7 General? no acute distress.? Neck no JVD. CVS? regular rate rhythm, Respiratory lungs clear to auscultation, no respiratory distress, no wheeze, no rhonchi. Gastrointestinal abdomen soft, obese, no abdominal tenderness with palpation, bowel sounds audible, no guarding , no rigidity. Extremities trace edema. Neuro nonfocal . Skin no rash DS: Data Data Completed and Pending Completed studies during hospitalization [Text1]: Procedures Excision of Stomach, Percutaneous Endoscopic Approach, Vertical (05/10/21) Repair Diaphragm, Percutaneous Endoscopic Approach (05/10/21) Labs on day of discharge: Laboratory Results - last 24 hr 07/13/21 07/13/21 07/14/21 19:06 19:21 01:26 WBC RBC Hgb Hct MCV MCH MCHC RDW Plt Count MPV Absolute Nucleated RBC Nucleated RBC % (auto) PTT (Heparin Protocol) 66.2 64.4 POC Glucose 75 07/14/21 07/14/21 07/14/21 07:20 08:17 08:17 WBC 4.2 L RBC 4.06 L Hgb 13.0 L Hct 38.4 L MCV 94.6 MCH 32.0 MCHC 33.9 RDW 14.4 Plt Count 78 L D MPV 11.3 Absolute Nucleated RBC 0.000 Nucleated RBC % (auto) 0.0 PTT (Heparin Protocol) 67.7 POC Glucose 90 07/14/21 10:54 WBC RBC Hgb Hct MCV MCH MCHC RDW Plt Count MPV Absolute Nucleated RBC Nucleated RBC % (auto) PTT (Heparin Protocol) POC Glucose 100 Discharge Plan Discharge Patient Disposition: Home, Self-Care Discharge Diagnosis: Portal vein thrombosis/inferior mesenteric vein thrombosis Hypokalemia Referrals: Riaz Hopson MD [Primary Care Provider] - 1 Week (Your doctor's office should call you to schedule a follow up appointment. ) Discharge Medications: New Eliquis 5 mg Tablet 10 mg PO BID Qty: 60 RF: 0 Continued furosemide [Lasix] 20 mg tablet 20 mg PO QAM 60 Days Qty: 60 RF: 3 potassium chloride 20 mEq tablet extended release 40 meq PO DAILY 2 Days Qty: 4 RF: 0 Bariatric Multivitamins 45 mg iron- 800 mcg-120 mcg capsule 45 cap PO DAILY RF: 0 calcium carbonate [Calcium 500] 500 mg calcium (1,250 mg) tablet 500 mg PO DAILY RF: 0 Discharge Orders: Discharge Order (Routine); Ordered 07/14/21 Ordered By: Sonya Núñez Diet: advance to usual diet Activity on Discharge: As tolerated Stand Alone Forms: Patient Portal Discharge page, Work/School Release Care Plan Goals: Take Eliquis 10 mg twice daily followed by Eliquis 5 mg twice daily Health Concerns: Continue all home medications and follow bariatric diet Plan of Treatment: Outpatient follow-up with primary care physician and Bariatric surgery, return to check with any worsening abdominal pain nausea, vomiting GI bleed. Follow-up with Dr. Sarkar vascular surgeon in next 2-3 weeks. Assessment: As above Discharge Date/Time: 07/14/21 03:00
== END 2021-07-14 03:00 | disposition home or self-care (01) | DRG 279 ==
LOC: HO.ED 16:21 → HO.EDOVER 17:48 → HO.IMC 07-13 03:00
PROVIDERS: Internal Medicine; Admitting Provider Hospitalist; Emergency Provider Emergency Medicine; PCP Internal Medicine; Visit Provider Hospitalist
DX: I81 Portal vein thrombosis (principal); E66.01 Morbid (severe) obesity due to excess calories; K74.60 Unspecified cirrhosis of liver; I10 Essential (primary) hypertension; E87.6 Hypokalemia; E11.9 Type 2 diabetes mellitus without complications; Z20.822 Contact with and (suspected) exposure to COVID-19; Z68.43 Body mass index [BMI] 50.0-59.9, adult; Z98.84 Bariatric surgery status; Z79.01 Long term (current) use of anticoagulants; Z79.899 Other long term (current) drug therapy
CPT/HCPCS: 36415; 74177; 80048; 81003; 82947; 83690; 85027; 85610; 85730; 87635; 96361; 96365; 96375; 96376; 99285; J2270; J2405; Q9967

== ENCOUNTER 2021-07-16 15:12 | Emergency (ER) | payer OTHER, SELFPAY ==
--- NOTE | ~2021-07-16 | CT_ITS ---
EXAMINATION: CT ABDOMEN AND PELVIS WITH CONTRAST CLINICAL INFORMATION: Abdomen pain with emesis. Worsening portal vein thrombosis. COMPARISON: Portions of a previous CT 07/12/21 TECHNIQUE: Multidetector volumetric images were obtained from the superior aspect of the liver through the pubic symphysis following administration 100 mL of Omnipaque 350 intravenous contrast. Sagittal and coronal reformatted images were obtained on the technologist's workstation. Oral contrast: No This CT examination was performed using dose optimization techniques as appropriate, variously including the following: *Automated exposure control *Adjustment of mA and/or kV according to patient size (this includes techniques or standardized protocols for targeted exams where dose is matched to indication/reason for exam; i.e. extremities or head) *Use of iterative reconstruction technique DLP: 2102 mGy-cm FINDINGS: LUNG BASES: Calcified lung base granulomata. LIVER, GALLBLADDER, AND BILIARY TREE: Liver contour is slightly irregular. Heterogeneous hepatic attenuation. No large focal liver lesion. There is some opaque material within the gallbladder which could represent biliary excretion of previously administered IV contrast. No definite dilation of the common duct PANCREAS: No suspicious abnormality. SPLEEN: The spleen measures 17 cm which is moderately to markedly enlarged. No focal abnormality. ADRENAL GLANDS: No suspicious mass KIDNEYS AND URETERS: The right kidney is markedly atrophic and irregular. There is no dilation of the urinary collecting system on the left. No suspicious left renal mass. BLADDER: The urinary bladder has a smooth contour. No suspicious abnormality. GASTROINTESTINAL TRACT: No localized colonic wall thickening. The appendix is within normal limits. There is no small bowel dilation. Suture along the greater curvature of the stomach perhaps related to a gastric sleeve procedure. ABDOMINAL WALL: Multiple abdominal wall collaterals. Fat protrudes into the umbilicus. There is stranding in the midline in the upper abdominal wall. This may be related to previous surgery. LYMPH NODES: No definite lymphadenopathy. VASCULAR: There is extensive thrombus within the main portal vein extending into the left branch of the portal vein and extensively involving the superior mesenteric vein and some of its branches. This likely accounts for some stranding throughout the mesentery. There is some peripheral enhancement within the upper main portal vein and some of the right portal vein. In comparison with 07/12/21 there is unchanged mild thrombus in the splenic vein extending to the junction with the portal vein. There are large upper abdominal venous collaterals. PELVIC VISCERA: No suspicious abnormality. OSSEOUS STRUCTURES: There are extensive degenerative changes in the spine. CT/CT abdomen pelvis w con IMPRESSION: Extensive portal vein thrombus within the main portal vein and left portal vein and extending into the central portion of the splenic vein and extensively involving the superior mesenteric vein and accounting for mesenteric stranding likely due to venous engorgement. No significant interval change in the amount of thrombus. Markedly atrophic chronic changes in the right kidney. Suspect previous bariatric gastric sleeve procedure. Splenomegaly with irregular liver contour. Numerous upper abdominal venous collaterals
[2021-07-16 16:13] VITALS: BP 162/65; PULSE 77; RESP 22; TEMP 37.5; O2SAT 94; BMI 26.0
--- NOTE | 2021-07-16 16:30 | ECG_ITS ---
Test Reason : ABD PAIN Blood Pressure : / mmHG Vent. Rate : 058 BPM Atrial Rate : 058 BPM P-R Int : 150 ms QRS Dur : 102 ms QT Int : 438 ms P-R-T Axes : 015 046 028 degrees QTc Int : 429 ms Sinus bradycardia Otherwise normal ECG When compared with ECG of 04-MAY-2021 10:24, No significant change was found Referred By: Jhonathan Moon Electronically Signed By:ALISON DUMONT
--- NOTE | 2021-07-16 16:37 | ED.ABDPAIN ---
HPI - Abdominal Pain General Chief Complaint: Abdominal Pain Stated Complaint: Vomiting blood Time Seen by Provider: 07/16/21 16:16 Source: patient Mode of arrival: ambulatory Limitations: no limitations History of Present Illness HPI narrative: Patient presents to ED for abdominal pain and 1 episode vomiting flecks of blood. Patient states mid/lower abdominal pain radiating to back. Patient denies any blood in stool, fever, chills, chest pain, shortness of breath. Patient denies coughing blood. Patient states vomiting blood. Patient was admitted recently for abdominal pain found to have portal vein thrombosis. Patient's history of ascites due to obesity. Patient recent hepatitis test was negative. Patient denies any alcohol abuse. Patient was on heparin during ED visit and now on Eliquis. MD elicited complaint: abdominal pain Related Data Home Medications Medication Instructions Recorded Confirmed calcium carbonate 500 mg calcium 500 mg PO DAILY 05/25/21 07/12/21 (1,250 mg) tablet (Calcium 500) [id number] 45 mg-folic 45 cap PO DAILY 05/25/21 07/12/21 acid 800 mcg-vit K 120 mcg capsule (Bariatric Multivitamins) Previous Rx's Medication Instructions Recorded furosemide 20 mg tablet (Lasix) 20 mg PO QAM 60 Days #60 tab 07/05/21 potassium chloride 20 mEq 40 meq PO DAILY 2 Days #4 tab 07/12/21 tablet,extended release apixaban 5 mg tablet (Eliquis) 10 mg PO BID #60 tab 07/14/21 Allergies Allergy/AdvReac Type Severity Reaction Status Date / Time No Known Allergies Allergy Verified 07/16/21 16:16 Review of Systems Review of Systems Yes all other systems are reviewed and are negative Constitutional: Reports as per HPI and Reports no additional constitutional complaints Eyes: Reports as per HPI and Reports no additional eye complaints Reports system reviewed and no additional complaints, except as documented Cardiovascular: Reports as per HPI and Reports no additional cardiovascular complaints Respiratory: Reports as per HPI and Reports no additional respiratory complaints Gastrointestinal: Reports as per HPI, Reports no additional gastrointestinal complaints, Reports abdominal pain and Reports hematemesis (one episode of specs bright red blood ) Genitourinary: Reports no additional male genitourinary complaints and Reports as per HPI Musculoskeletal: Reports no additional musculoskeletal complaints and Reports as per HPI Reports system reviewed and no additional complaints, except as documented and Reports as per HPI Psychiatric: Reports no additional psychiatric complaints and Reports as per HPI Physical Exam Vital Signs: Vital Signs: Last Vital Signs Temp 97.9 F 07/16/21 21:49 Pulse 54 07/17/21 01:56 Resp 18 07/17/21 01:56 BP 125/51 L 07/17/21 01:56 Pulse Ox 98 07/17/21 01:56 Body Mass Index 26.0 Const: General: cooperative, healthy appearing, comfortable, no acute distress, well developed, alert and awake Orientation/consciousness: oriented to time and patient oriented x3 HENMT: Other: Oral cavity negative for blood. Head: Yes normal to inspection and Yes No palpable skull fracture present Eyes: General: appearance normal, both eyes and all related structures Neck: Neck: Yes normal visual inspection, Yes full ROM, Yes no lymphadenopathy, Yes no meningeal signs, Yes trachea midline, Yes supple and No tender Chest: Chest palpation & inspection: normal inspection of the chest and normal palpation of entire chest wall Resp: Effort & Inspection: normal respiratory effort and able to speak in complete sentences Cardio: Jugular venous distension: no JVD Heart sounds: S1 normal heart sound present and S2 normal heart sound present GI: Inspection: Yes normal to inspection and No abdominal wall ecchymosis Palpation (GI): Tenderness to palpation present (GI) (mid abdominal tenderness) in the LLQ and in the RLQ Rectal Exam - Male: Yes visual inspection normal, Yes normal sphincter tone, Yes heme negative stool, No External hemorrhoid(s) present and No Internal hemorrhoid(s) present : General: No CVA tenderness and Yes no CVA tenderness Back/Spine/Pelvis: Back: no CVA tenderness, No CVA tenderness and No back tenderness Skin: General skin exam: no rashes or lesions noted and elasticity normal Neuro: General: oriented to time, patient oriented x3, no meningeal signs and CN's II-XI intact bilaterally Cranial nerves: Yes CN's II-XII intact bilaterally Extrem: General: Yes normal to inspection and Yes full ROM Psych: Appearance: grossly normal, well kempt and not disheveled Course Course Course Narrative: Patient will have labs, GI cocktail, and EKG. Most likely will consult Gastroenterology. Patient denies any history of alcohol abuse. Reevaluation(s) Reevaluation #1: Case discussed with Dr. Bueno of Gastroenterology. He was informed of patient's history, physical exam, and diagnostics. Recommends patient be given Protonix and octreotide push and drip. Also agreeable plan for repeat abdominal CT scan make sure there is no worsening of the portal vein thrombosis. Time: 18:55 Reevaluation #2: Spoke with Dr. Bueno Gastroenterology made him aware of CT scan results of worsening portal vein thrombosis and he recommends vascular surgeon to be contacted. Also states octreotide to be discontinued. Spoke with Dr. Sarkar of vascular surgery who recommended patient to be transferred for higher acuity of care. He states patient will need tips procedure by Interventional Radiology. Time: 21:54 Reevaluation #3: [facility] surgery, [facility] [place], [facility], and [facility] was called for transfer and they said they were not accepting any cases and they had no beds. Rules call and states patient cannot stay in the ER and has to be transferred. He does not recommend heparin due to patient already being on heparin. Time: 00:41 Additional Reevaluation(s): [facility], [facility], [facility], and [facility] was called and they state they would not accept any patients due to lack of beds. Nursing dry cleaning supervisor made aware to call administrated director firefighter type one. 01:28am patient except to [facility] for admission and Interventional Radiology tips procedure. E.d. will accept transfer from [facility] ER. Accepting ED physician is and accepting hospitalist from [facility] will be Dr. Jung. our team [facility] states they would not organized transportation and that is our possibility. They state patient could be transferred at 07:00. MDM - Abdominal Pain MDM Narrative Medical decision making narrative: Worsening portal vein thrombosis Lab Data Result diagrams: 07/16/21 16:40 07/16/21 16:40 Labs: Lab Results 07/16/21 07/16/21 07/16/21 Range/Units 16:40 16:40 16:40 WBC 5.8 (4.8-10.8) X10*3/uL RBC 4.19 L (4.60-5.80) X10*6/uL Hgb 13.6 L (14.0-18.0) g/dl Hct 39.8 L (42-52) % MCV 95.0 (80-98) fL MCH 32.5 (27.0-33.0) pg MCHC 34.2 (31.0-36.0) g/dl RDW 14.4 (11.0-16.0) % Plt Count 112 L D (160-400) X10*3/uL MPV 10.5 (9.4-12.4) fL Immature Gran % (Auto) 0.5 H (0.0-0.4) % Neut % (Auto) 71.6 (45-73) % Lymph % (Auto) 16.5 L (20-40) % Bullitt % (Auto) 9.7 (2-11) % Eos % (Auto) 1.4 (0-4) % Baso % (Auto) 0.3 (0-2) % Lymph # (Auto) 1.0 L (1.2-4.9) X10*3/uL Bullitt # (Auto) 0.6 (0.1-1.2) X10*3/uL Eos # (Auto) 0.1 (0.0-0.4) X10*3/uL Baso # (Auto) 0.0 (0.0-0.2) X10*3/uL Abs Immat Gran (auto) 0.03 (0.00-0.03) X10*3/uL Absolute Neuts (auto) 4.1 (2.0-8.3) X10*3/uL Absolute Nucleated RBC 0.000 (0.0-0.012) X10*3/uL Nucleated RBC % (auto) 0.0 (0.0-0.2) /100WBC PT 25.4 H D (9.9-13.0) SEC INR 2.2 H (0.9-1.1) APTT 43.2 H D (24.1-38.0) SEC Sodium 139 (135-145) mmol/L Potassium 3.7 (3.3-5.1) mmol/L Chloride 100 (96-108) mmol/L Carbon Dioxide 27 (22-29) mmol/L Anion Gap 16 (12-20) BUN 10 (9-16) mg/dL Creatinine 1.02 (0.5-1.4) mg/dL Estim Creat Clear Calc 102.4 Estimated GFR > 60 Random Glucose 166 H D (60-115) mg/dL Lactic Acid (0.5-2.0) mmol/L Calcium 9.6 D (8.4-10.2) mg/dL Total Bilirubin 1.6 H (0.0-1.0) mg/dL Direct Bilirubin 0.5 (0.0-0.5) mg/dL AST 40 H (5-37) U/L ALT 21 (0-40) U/L Alkaline Phosphatase 71 (39-117) U/L Troponin I High Sens (<3.5-35.0) ng/L Total Protein 7.6 (6.5-8.0) g/dL Albumin 3.5 (3.5-5.0) g/dL Lipase 55 (8-78) U/L Stool Occult Blood (NEGATIVE) 07/16/21 07/16/21 07/16/21 Range/Units 16:40 16:44 22:05 WBC (4.8-10.8) X10*3/uL RBC (4.60-5.80) X10*6/uL Hgb (14.0-18.0) g/dl Hct (42-52) % MCV (80-98) fL MCH (27.0-33.0) pg MCHC (31.0-36.0) g/dl RDW (11.0-16.0) % Plt Count (160-400) X10*3/uL MPV (9.4-12.4) fL Immature Gran % (Auto) (0.0-0.4) % Neut % (Auto) (45-73) % Lymph % (Auto) (20-40) % Bullitt % (Auto) (2-11) % Eos % (Auto) (0-4) % Baso % (Auto) (0-2) % Lymph # (Auto) (1.2-4.9) X10*3/uL Bullitt # (Auto) (0.1-1.2) X10*3/uL Eos # (Auto) (0.0-0.4) X10*3/uL Baso # (Auto) (0.0-0.2) X10*3/uL Abs Immat Gran (auto) (0.00-0.03) X10*3/uL Absolute Neuts (auto) (2.0-8.3) X10*3/uL Absolute Nucleated RBC (0.0-0.012) X10*3/uL Nucleated RBC % (auto) (0.0-0.2) /100WBC PT (9.9-13.0) SEC INR (0.9-1.1) APTT (24.1-38.0) SEC Sodium (135-145) mmol/L Potassium (3.3-5.1) mmol/L Chloride (96-108) mmol/L Carbon Dioxide (22-29) mmol/L Anion Gap (12-20) BUN (9-16) mg/dL Creatinine (0.5-1.4) mg/dL Estim Creat Clear Calc Estimated GFR Random Glucose (60-115) mg/dL Lactic Acid (0.5-2.0) mmol/L Calcium (8.4-10.2) mg/dL Total Bilirubin (0.0-1.0) mg/dL Direct Bilirubin (0.0-0.5) mg/dL AST (5-37) U/L ALT (0-40) U/L Alkaline Phosphatase (39-117) U/L Troponin I High Sens 5.2 6.0 (<3.5-35.0) ng/L Total Protein (6.5-8.0) g/dL Albumin (3.5-5.0) g/dL Lipase (8-78) U/L Stool Occult Blood NEGATIVE (NEGATIVE) 07/16/21 Range/Units 22:05 WBC (4.8-10.8) X10*3/uL RBC (4.60-5.80) X10*6/uL Hgb (14.0-18.0) g/dl Hct (42-52) % MCV (80-98) fL MCH (27.0-33.0) pg MCHC (31.0-36.0) g/dl RDW (11.0-16.0) % Plt Count (160-400) X10*3/uL MPV (9.4-12.4) fL Immature Gran % (Auto) (0.0-0.4) % Neut % (Auto) (45-73) % Lymph % (Auto) (20-40) % Bullitt % (Auto) (2-11) % Eos % (Auto) (0-4) % Baso % (Auto) (0-2) % Lymph # (Auto) (1.2-4.9) X10*3/uL Bullitt # (Auto) (0.1-1.2) X10*3/uL Eos # (Auto) (0.0-0.4) X10*3/uL Baso # (Auto) (0.0-0.2) X10*3/uL Abs Immat Gran (auto) (0.00-0.03) X10*3/uL Absolute Neuts (auto) (2.0-8.3) X10*3/uL Absolute Nucleated RBC (0.0-0.012) X10*3/uL Nucleated RBC % (auto) (0.0-0.2) /100WBC PT (9.9-13.0) SEC INR (0.9-1.1) APTT (24.1-38.0) SEC Sodium (135-145) mmol/L Potassium (3.3-5.1) mmol/L Chloride (96-108) mmol/L Carbon Dioxide (22-29) mmol/L Anion Gap (12-20) BUN (9-16) mg/dL Creatinine (0.5-1.4) mg/dL Estim Creat Clear Calc Estimated GFR Random Glucose (60-115) mg/dL Lactic Acid 1.6 (0.5-2.0) mmol/L Calcium (8.4-10.2) mg/dL Total Bilirubin (0.0-1.0) mg/dL Direct Bilirubin (0.0-0.5) mg/dL AST (5-37) U/L ALT (0-40) U/L Alkaline Phosphatase (39-117) U/L Troponin I High Sens (<3.5-35.0) ng/L Total Protein (6.5-8.0) g/dL Albumin (3.5-5.0) g/dL Lipase (8-78) U/L Stool Occult Blood (NEGATIVE) ECG Data Interpretation: sinus bradycardia. Ventricular rate 58. Pr interval 150. QRS 102. QTC 429. Negative STEMI. Discharge Plan Discharge Clinical Impression: Portal vein thrombosis Patient Disposition: [facility] Hospital Transfer Details: [facility] Prescriptions: No Action Eliquis 5 mg Tablet 10 mg PO BID Qty: 60 RF: 0 furosemide [Lasix] 20 mg tablet 20 mg PO QAM 60 Days Qty: 60 RF: 3 potassium chloride 20 mEq tablet extended release 40 meq PO DAILY 2 Days Qty: 4 RF: 0 Bariatric Multivitamins 45 mg iron- 800 mcg-120 mcg capsule 45 cap PO DAILY RF: 0 calcium carbonate [Calcium 500] 500 mg calcium (1,250 mg) tablet 500 mg PO DAILY RF: 0 PMFSH Past Medical History Medical History Cellulitis Cirrhosis of liver without ascites Congestive heart failure COVID-19 vaccine series completed Essential hypertension Hiatal hernia HTN (hypertension) Major depression, single episode Moderate major depression, single episode Morbid obesity Personal history of COVID-19 Preoperative examination Shortness of breath Super obesity Trauma left hip Type 2 diabetes mellitus UTI (urinary tract infection) Vitamin A deficiency Vitamin B1 deficiency Surgical History H/O discectomy History of repair of hiatal hernia S/P laparoscopic sleeve gastrectomy Family History Family History Father Type 2 diabetes mellitus Heart disease Kidney failure Mother Obesity (BMI 30-39.9) Hypertension Brother No problems noted. Brother No problems noted. Other Mental health disorder Substance use disorder Social History Social History Household Members: Other Household Members Other:: parents Housing: Apartment Are you a primary respiratory care practitioner to a significant other at home: No Do you presently have visiting nurse or other home services: No Alcohol intake: never Patient Tobacco Use Status: Never used Tobacco Use of substances other than those prescribed or required for medical reasons: No Advance Directives: No Advance Directives Information Provided: No service: No Current occupational status: unemployed
[2021-07-16 16:49] LABS: Mean Platelet Volume 10.5 fL (9.4-12.4); PLT CLUMP 1; Red Cell Distribution Width 14.4 % (11.0-16.0); SCAN SMEAR FLAG 1
[2021-07-16 16:51] LABS: Basophils Percent Auto 0.3 % (0-2); Eosinophils Absolute Auto 0.1 X10*3/uL (0.0-0.4); Eosinophils Percent Auto 1.4 % (0-4); Hematocrit 39.8 % (42-52); Hemoglobin 13.6 g/dl (14.0-18.0); Imm Gran Abs Auto 0.03 X10*3/uL (0.00-0.03); Imm Gran Pct Auto 0.5 % (0.0-0.4); Lymphocytes Percent Auto 16.5 % (20-40); Mean Corpuscular HGB Conc 34.2 g/dl (31.0-36.0); Mean Corpuscular Hemoglobin 32.5 pg (27.0-33.0); Monocytes Absolute Auto 0.6 X10*3/uL (0.1-1.2); Monocytes Percent Auto 9.7 % (2-11); Neutrophils Absolute Auto 4.1 X10*3/uL (2.0-8.3); Neutrophils Percent Auto 71.6 % (45-73); Platelet Count 112 X10*3/uL (160-400); Red Blood Count 4.19 X10*6/uL (4.60-5.80); White Blood Count 5.8 X10*3/uL (4.8-10.8)
[2021-07-16 16:52] LABS: MANUAL DIFF FLAG NO
[2021-07-16 16:57] LABS: INTERNATIONAL NORM RATIO 2.2 (0.9-1.1); Prothrombin Time 25.4 SEC (9.9-13.0)
[2021-07-16 16:59] LABS: Partial Thromboplastin Time 43.2 SEC (24.1-38.0)
[2021-07-16] MEDS: 0.9 % Sodium Chloride 1,000 ML 999 ML IV (17:01)
[2021-07-16] MEDS: ondansetron HCL 4 MG/2 ML VIAL IVPUSH (17:01)
[2021-07-16] MEDS: Famotidine/PF 20 MG/2 ML VIAL IVPUSH (17:02)
[2021-07-16] MEDS: PHENobarb/Hyoscy/Atropine/Scop 10 ML ELIXIR PO (17:03)
[2021-07-16] MEDS: Lidocaine HCl Viscous 2 % 15 ML SOLUTION MUCOUS MEM (17:03)
[2021-07-16] MEDS: Magnesium Hydrox/Alum Hydrox 30 ML ORAL.SUSP PO (17:04)
[2021-07-16 17:07] VITALS: BP 118/61; PULSE 71; RESP 18; O2SAT 98
[2021-07-16 17:10] LABS: Alanine Aminotransferase 21 U/L (0-40); Albumin Level 3.5 g/dL (3.5-5.0); Alkaline Phosphatase 71 U/L (39-117); Anion Gap 16 (12-20); Aspartate Amino Transferase 40 U/L (5-37); Bilirubin Direct 0.5 mg/dL (0.0-0.5); Bilirubin Total 1.6 mg/dL (0.0-1.0); Blood Urea Nitrogen 10 mg/dL (9-16); Calcium 9.6 mg/dL (8.4-10.2); Carbon Dioxide 27 mmol/L (22-29); Chloride 100 mmol/L (96-108); Creatinine Clr Calc Pharmacy 102.4; Estimated Glomerular Filt Rate > 60; Glucose Random 166 mg/dL (60-115); Lipase 55 U/L (8-78); Potassium 3.7 mmol/L (3.3-5.1); Sodium 139 mmol/L (135-145); Total Protein 7.6 g/dL (6.5-8.0)
[2021-07-16 17:11] LABS: Troponin-I High Sensitivity 5.2 ng/L (<3.5-35.0)
[2021-07-16 17:34] LABS: OBS Int Ctl Valid YES
[2021-07-16 17:36] LABS: OBS1 NEGATIVE (NEGATIVE)
[2021-07-16] MEDS: Octreotide Acetate 100 MCG/ML AMPUL 50 MCG IVPUSH (19:46)
[2021-07-16] MEDS: Pantoprazole Sodium 40 MG/10 ML VIAL 80 MG IVPUSH (19:46)
[2021-07-16] MEDS: iohexoL 350 MG/ML 100 ML INFUS..BTL IV (19:49)
[2021-07-16] MEDS: Octreotide Acetate 500 MCG in 0.9 % Sodium Chloride 500 ML 50.1 MCG IVCONT (20:00)
[2021-07-16 21:25] VITALS: BP 129/60; PULSE 60; RESP 16; TEMP 36.8; O2SAT 99
[2021-07-16 21:49] VITALS: BP 146/70; PULSE 66; RESP 16; TEMP 36.6; O2SAT 99
--- NOTE | 2021-07-16 21:51 | PC.NURSE ---
unable to get labs as patient is a difficult stick ,phlebotomy was called
[2021-07-16 22:23] LABS: Lactic Acid 1.6 mmol/L (0.5-2.0)
--- NOTE | 2021-07-16 22:39 | PC.NURSE ---
This RN contacting pharmacy regarding Octreotide order. Per pharmacy, despite JAN, next dose due @ 0500. Per pharmacy, Octreotide was stored in the fridge in med room for 0500 dose.
[2021-07-16 23:17] VITALS: BP 117/41; PULSE 81; RESP 20; O2SAT 100
--- NOTE | 2021-07-16 23:48 | PC.NURSE ---
Octreotide stopped per HANK Ring verbal order.
--- NOTE | 2021-07-17 01:47 | PC.NURSE ---
RN awaiting call back from nursing airplane pilot supervisor as staff has exhausted all potential facilities for transfer. At this time there are no facilities accepting patients. Per nursing airplane pilot supervisor call to be placed to AOD, maintenance machinist awaiting return call.
[2021-07-17 01:56] VITALS: BP 125/51; PULSE 54; RESP 18; O2SAT 98
[2021-07-17 04:37] VITALS: BP 112/36; PULSE 57; RESP 20
[2021-07-17 04:56] LABS: COVID-19 Test Negative (Negative); IDNOW Serial# 9DD0AD1C
[2021-07-17] MEDS: Ondansetron ODT 4 MG TAB.RAPDIS TRANSLINGU (05:19)
--- NOTE | 2021-07-17 06:19 | PC.NURSE ---
Called To give report and was told to call after 7am.
[2021-07-17 07:21] VITALS: BP 110/46; PULSE 54; RESP 15; TEMP 36.5; O2SAT 99
--- NOTE | 2021-07-17 07:26 | PC.NURSE ---
Report given to ER, They are awaiting patient arrival.
== END 2021-07-17 07:37 | disposition short-term general hospital (02) ==
PROVIDERS: Physician Assistant; Emergency Provider Emergency Medicine; PCP Internal Medicine
DX: I81 Portal vein thrombosis (principal); R10.30 Lower abdominal pain, unspecified; M54.5 Low back pain; Z79.899 Other long term (current) drug therapy; Z20.822 Contact with and (suspected) exposure to COVID-19; Z86.16 Personal history of COVID-19
CPT/HCPCS: 36415; 74177; 80053; 82248; 82272; 83605; 83690; 84484; 85025; 85610; 85730; 87635; 93005; 96365; 96372; 96375; 99285; J2354; J2405; Q9967

== ENCOUNTER → 2021-07-21 09:14 | Outpatient (BNVA) | payer OTHER, SELFPAY | PROVIDERS: PCP Internal Medicine; Visit Provider Surgery | DX: I81 Portal vein thrombosis (principal); Z98.84 Bariatric surgery status | CPT/HCPCS: 99212 ==

== ENCOUNTER → 2021-08-01 09:36 | Outpatient (BNVA) | payer OTHER, SELFPAY | PROVIDERS: PCP Internal Medicine; Referring Provider Internal Medicine; Visit Provider Surgery | DX: I81 Portal vein thrombosis (principal); K74.60 Unspecified cirrhosis of liver; Z98.84 Bariatric surgery status; Z98.890 Other specified postprocedural states; Z87.19 Personal history of other diseases of the digestive system | CPT/HCPCS: 99212 ==

== ENCOUNTER 2021-08-11 09:02 | Outpatient (REF) | payer OTHER, SELFPAY ==
[2021-08-11 11:43] LABS: Estimated Average Glucose 91 mg/dL; Hemoglobin A1c % 4.8 %
[2021-08-11 12:07] LABS: Anion Gap 13 (12-20); Blood Urea Nitrogen 17 mg/dL (9-16); Calcium 8.7 mg/dL (8.4-10.2); Carbon Dioxide 26 mmol/L (22-29); Chloride 102 mmol/L (96-108); Estimated Glomerular Filt Rate 58; Glucose Random 149 mg/dL (60-115); Potassium 2.9 mmol/L (3.3-5.1); Sodium 138 mmol/L (135-145)
== END 2021-08-11 09:03 | disposition home or self-care (01) ==
LOC: HO.HMGCLDS 09:02
PROVIDERS: PCP Internal Medicine; Visit Provider Internal Medicine
DX: E87.6 Hypokalemia (principal); E13.9 Other specified diabetes mellitus without complications
CPT/HCPCS: 36415; 80048; 83036; 83735

== ENCOUNTER → 2021-08-15 08:32 | Outpatient (BNVA) | payer OTHER, SELFPAY | PROVIDERS: PCP Internal Medicine; Referring Provider Internal Medicine; Visit Provider Physician Assistant Surgical ==

== ENCOUNTER 2021-08-18 00:28 | Inpatient (IN) | payer OTHER, SELFPAY ==
[2021-08-18] VITALS (11 sets, daily range): BP systolic 117–148; BP diastolic 34–62; PULSE 70–77; RESP 16–68; TEMP 36.4–36.7; O2SAT 97–100; BMI 54.5
--- NOTE | ~2021-08-18 | CT_ITS ---
EXAMINATION: CT ABDOMEN AND PELVIS WITH CONTRAST CLINICAL INFORMATION: Pain. Right gluteus soy hematoma. Tingling extending into the right lower extremity. COMPARISON: 07/16/2021 TECHNIQUE: Multidetector volumetric images were obtained from the superior aspect of the liver through the pubic symphysis following administration 85 mL of Omnipaque 350 intravenous contrast. Sagittal and coronal reformatted images were obtained on the technologist's workstation. Oral contrast: No This CT examination was performed using dose optimization techniques as appropriate, variously including the following: *Automated exposure control *Adjustment of mA and/or kV according to patient size (this includes techniques or standardized protocols for targeted exams where dose is matched to indication/reason for exam; i.e. extremities or head) *Use of iterative reconstruction technique DLP: 2259 mGy-cm FINDINGS: LUNG BASES: There are a few scattered calcified granulomata. LIVER, GALLBLADDER, AND BILIARY TREE: Morphologically cirrhotic liver. No focal liver lesions. No intra or extrahepatic biliary dilatation. Gallbladder unremarkable. PANCREAS: Unremarkable. SPLEEN: Remains enlarged measuring 18 cm long axis. ADRENAL GLANDS: Stable 4.0 cm left adrenal myelolipoma. Right adrenal gland is normal. KIDNEYS AND URETERS: Persistent marked atrophy of the right kidney with compensatory hypertrophy of the left kidney. No hydronephrosis or perinephric abnormality. No urinary calculi. BLADDER: Unremarkable. GASTROINTESTINAL TRACT: Sleeve gastrectomy. No intestinal obstruction or inflammation. Scattered colonic diverticula without evidence of diverticulitis. Normal appendix. ABDOMINAL WALL: Interval development of multiple rounded collections throughout the ventral subcutaneous fat. Small fat-containing umbilical hernia. LYMPH NODES: Normal. VASCULAR: Decreased quantity of thrombus within the portal vein, with now only a small amount of the portal vein involvement. The superior mesenteric vein is largely recanalized with persistent thrombus within a more distal branch. Splenic vein no longer occluded. Decreased edema within the small bowel mesentery related to diminishing venous congestion. Large splenorenal shunt. PELVIC VISCERA: Unremarkable. MUSCULOSKELETAL STRUCTURES: There is a hematoma within the right gluteus soy measuring 12.0 x 7.2 x 9.3 cm. No significant mass effect upon the sciatic nerve. CT/CT abdomen pelvis w con IMPRESSION: * Large hematoma within the right gluteus soy measuring up to 12.0 cm. No significant mass effect upon the sciatic nerve. * Interval development of multiple collections of fluid within the ventral subcutaneous fat, possibly subcutaneous hematomas. * Significantly decreased thrombus within the portal and superior mesenteric vein with resolution of thrombus within the left and right portal veins, and splenic vein. * Decreased venous congestion and edema within the small bowel mesentery. * Morphologically cirrhotic liver with portal hypertension evidenced by large splenorenal shunt, and splenomegaly. * Markedly atrophic right kidney. * Sleeve gastrectomy. * Stable 4.0 cm left adrenal myelolipoma.
--- NOTE | 2021-08-18 01:21 | PC.NURSE ---
this nurse unable to establish IV access. dental technician apprentice at bedside to obtain lab work. notified in order to place IV via US.
--- NOTE | 2021-08-18 01:47 | PC.NURSE ---
IV placed by via ultrasound. 18g L AC bloodwork obtained and sent to lab pt requesting medication for pain. notified
[2021-08-18 01:49] LABS: MANUAL DIFF FLAG NO
[2021-08-18 01:50] LABS: Basophils Percent Auto 0.5 % (0-2); Eosinophils Percent Auto 0.5 % (0-4); Hematocrit 27.4 % (42-52); Hemoglobin 9.3 g/dl (14.0-18.0); Imm Gran Abs Auto 0.01 X10*3/uL (0.00-0.03); Imm Gran Pct Auto 0.3 % (0.0-0.4); Lymphocytes Absolute Auto 0.8 X10*3/uL (1.2-4.9); Lymphocytes Percent Auto 21.3 % (20-40); Mean Corpuscular HGB Conc 33.9 g/dl (31.0-36.0); Mean Corpuscular Hemoglobin 33.2 pg (27.0-33.0); Mean Corpuscular Volume 97.9 fL (80-98); Mean Platelet Volume 10.3 fL (9.4-12.4); Monocytes Absolute Auto 0.4 X10*3/uL (0.1-1.2); Monocytes Percent Auto 11.2 % (2-11); Neutrophils Absolute Auto 2.5 X10*3/uL (2.0-8.3); Neutrophils Percent Auto 66.2 % (45-73); Red Cell Distribution Width 18.2 % (11.0-16.0); White Blood Count 3.8 X10*3/uL (4.8-10.8)
[2021-08-18 01:57] LABS: INTERNATIONAL NORM RATIO 1.4 (0.9-1.1); Prothrombin Time 16.5 SEC (9.9-13.0)
[2021-08-18 01:59] LABS: Partial Thromboplastin Time 56.3 SEC (24.1-38.0)
[2021-08-18 02:08] LABS: Alanine Aminotransferase 24 U/L (0-40); Albumin Level 3.1 g/dL (3.5-5.0); Alkaline Phosphatase 78 U/L (39-117); Anion Gap 13 (12-20); Aspartate Amino Transferase 53 U/L (5-37); Bilirubin Total 4.5 mg/dL (0.0-1.0); Blood Urea Nitrogen 21 mg/dL (9-16); Calcium 8.7 mg/dL (8.4-10.2); Carbon Dioxide 25 mmol/L (22-29); Chloride 101 mmol/L (96-108); Creatinine Clr Calc Pharmacy 120.1; Estimated Glomerular Filt Rate 58; Glucose Random 139 mg/dL (60-115); Sodium 136 mmol/L (135-145); Total Protein 6.3 g/dL (6.5-8.0)
[2021-08-18 02:11] LABS: Platelet Count 77 X10*3/uL (160-400)
[2021-08-18] MEDS: fentaNYL citrate/PF 100 MCG/2 ML VIAL 25 MCG IVPUSH (02:13)
--- NOTE | 2021-08-18 02:23 | ED_ITS ---
HPI - General Adult General Chief complaint: Back Pain/Injury Stated complaint: BACK AND HEAD PAIN POSTOP Time Seen by Provider: 08/18/21 00:36 Source: patient Mode of arrival: EMS History of Present Illness HPI narrative: This is a 41-year-old male with significant past medical history of portal vein thrombosis currently on Lovenox and states that he got home from work this evening noted that he had some ?spasming and cramping? on his right gluteus and decided that he would lie down for a little while and when he twisted to lay down he felt a ?pop? and then excruciating pain into his right gluteus with numbness and tingling extending down into his distal foot. Otherwise, he denies any shortness of breath, dizziness, headache, urinary difficulties. Patient otherwise denies any falls or traumatic injury to that side of his body. Related Data Home Medications Medication Instructions Recorded Confirmed [id number] 45 mg-folic 45 cap PO DAILY 05/25/21 08/07/21 acid 800 mcg-vit K 120 mcg capsule (Bariatric Multivitamins) enoxaparin 100 mg/mL subcutaneous 190 mg SUBCUT Q12H ml 07/21/21 08/07/21 syringe (Lovenox) inulin 2.5 gram chewable tablet 5 g PO .dialy tab 08/01/21 08/07/21 Previous Rx's Medication Instructions Recorded furosemide 20 mg tablet (Lasix) 20 mg PO QAM 60 Days #60 tab 07/05/21 apixaban 5 mg tablet (Eliquis) 5 mg PO BID #90 tab 08/07/21 ondansetron HCl 4 mg tablet 4 mg PO Q8H PRN 7 Days #14 tab 08/07/21 (Zofran) potassium chloride 10 mEq 20 meq PO BID #30 tab 08/15/21 tablet,extended release barium sulfate 2 % (w/v) oral 150 ml PO ONCE #900 ml 08/17/21 suspension (Readi-Cat 2) Allergies Allergy/AdvReac Type Severity Reaction Status Date / Time No Known Allergies Allergy Verified 08/01/21 15:21 Review of Systems Review of Systems: Pertinent positives and negatives as stated in HPI 10 point review of systems is otherwise negative. PMFSH Past Medical History Source: nursing notes reviewed Medical History Cellulitis Cirrhosis of liver without ascites Congestive heart failure COVID-19 vaccine series completed Diabetes 1.5, managed as type 2 Essential hypertension Hiatal hernia HTN (hypertension) Hypertension, essential Hypokalemia Major depression, single episode Moderate major depression, single episode Morbid obesity Morbid obesity with BMI of 60.0-69.9, adult Personal history of COVID-19 Preoperative examination Shortness of breath Super obesity Trauma left hip Type 2 diabetes mellitus UTI (urinary tract infection) Vitamin A deficiency Vitamin B1 deficiency Surgical History H/O discectomy History of repair of hiatal hernia S/P laparoscopic sleeve gastrectomy Family History Family History Father Type 2 diabetes mellitus Heart disease Kidney failure Mother Obesity (BMI 30-39.9) Hypertension Brother No problems noted. Brother No problems noted. Other Mental health disorder Substance use disorder Social History Social History Household Members: Other Household Members Other:: parents Housing: Apartment Are you a primary rn homecare to a significant other at home: No Do you presently have visiting nurse or other home services: No Alcohol intake: never Patient Tobacco Use Status: Never used Tobacco Use of substances other than those prescribed or required for medical reasons: No Advance Directives: No Advance Directives Information Provided: No service: No Current occupational status: unemployed Physical Exam Vital Signs: Vital Signs: Last Vital Signs Temp 97.7 F 08/18/21 07:09 Pulse 73 08/18/21 07:09 Resp 16 08/18/21 07:09 BP 117/43 L 08/18/21 07:09 Pulse Ox 97 08/18/21 07:09 Body Mass Index 54.5 VITAL SIGNS: Reviewed. GENERAL: Morbidly obese, moderate distress. HEAD: Normocephalic/atraumatic EYES: PERRLA, EOMI OROPHARYNX: no oral lesions noted, posterior pharynx clear NECK: Supple, no adenopathy LUNGS: Normal breath sounds. SpO2<100> CARDIOVASCULAR: Regular rate and rhythm without noted murmurs ABDOMEN: Morbidly obese, Soft, non-tender, non-distended with bowel sounds. Gluteus/back: On exam of midline vertebral palpation there are no step-offs and no pain, however there is noted significant ecchymoses with firmness to the right gluteus that wraps around to patient's right hip. MUSCULOSKELETAL: No tenderness, deformities, or effusions noted on gross inspection. EXTREMITIES: No cyanosis, clubbing or edema. SKIN: Inspection of the skin reveals ecchymosis as described above NEUROLOGIC: Alert and oriented x 4. On evaluation of sensation in the right lower extremity there is apparent decrease in sensation in the L5 distribution, but on gross S1 inspection patient reports normal sensation, there is no affect on motor, capillary refill is less than 3 seconds, but patient reports excruciating pain on flexion at the knee. Course Course Course Narrative: 41-year-old male with history and clinical presentation concerning for atraumatic bleeding into the right gluteus. On review of all investigations patient has anemia with hematoma in the right gluteus that is not compressing the sciatic nerve and no mention of active extravasation. Discussed the case with Dr Sarkar and Dr. Weston. Patient remains hemodynamically stable. Patient will need management and observation for coordinating anticoagulation with hematomas. I discussed case with the [facility] hospitalist who accepts admission. Reevaluation(s) Reevaluation #1: Call to Dr. Sarkar who recommends that patient be transferred for higher level of care as he does not feel qualified to assist in management recommendations at this time due to patient's underlying liver disease and possible recurrence of thrombosis. Time: 05:06 Reevaluation #2: [facility] decline transfer at this time. Time: 05:18 Reevaluation #3: I discussed this case with Dr. Weston who recommends stopping the anticoagulation and admission for observation. She agrees that there is no indication for transfusion at this time. Medical Decision Making Lab Data Result diagrams: 08/18/21 01:40 08/18/21 01:40 Labs: Lab Results 08/18/21 08/18/21 08/18/21 Range/Units 01:40 01:40 01:40 WBC 3.8 L (4.8-10.8) X10*3/uL RBC 2.80 L D (4.60-5.80) X10*6/uL Hgb 9.3 L D (14.0-18.0) g/dl Hct 27.4 L D (42-52) % MCV 97.9 (80-98) fL MCH 33.2 H (27.0-33.0) pg MCHC 33.9 (31.0-36.0) g/dl RDW 18.2 H (11.0-16.0) % Plt Count 77 L (160-400) X10*3/uL MPV 10.3 (9.4-12.4) fL Immature Gran % (Auto) 0.3 (0.0-0.4) % Neut % (Auto) 66.2 (45-73) % Lymph % (Auto) 21.3 (20-40) % [place] % (Auto) 11.2 H (2-11) % Eos % (Auto) 0.5 (0-4) % Baso % (Auto) 0.5 (0-2) % Lymph # (Auto) 0.8 L (1.2-4.9) X10*3/uL [place] # (Auto) 0.4 (0.1-1.2) X10*3/uL Eos # (Auto) 0.0 (0.0-0.4) X10*3/uL Baso # (Auto) 0.0 (0.0-0.2) X10*3/uL Abs Immat Gran (auto) 0.01 (0.00-0.03) X10*3/uL Absolute Neuts (auto) 2.5 (2.0-8.3) X10*3/uL Absolute Nucleated RBC 0.000 (0.0-0.012) X10*3/uL Nucleated RBC % (auto) 0.0 (0.0-0.2) /100WBC PT 16.5 H D (9.9-13.0) SEC INR 1.4 H (0.9-1.1) APTT 56.3 H D (24.1-38.0) SEC Fibrinogen 538 (259-690) MG/DL Sodium 136 (135-145) mmol/L Potassium 3.0 L (3.3-5.1) mmol/L Chloride 101 (96-108) mmol/L Carbon Dioxide 25 (22-29) mmol/L Anion Gap 13 (12-20) BUN 21 H (9-16) mg/dL Creatinine 1.34 (0.5-1.4) mg/dL Estim Creat Clear Calc 120.1 Estimated GFR 58 Random Glucose 139 H (60-115) mg/dL Calcium 8.7 (8.4-10.2) mg/dL Total Bilirubin 4.5 H (0.0-1.0) mg/dL AST 53 H (5-37) U/L ALT 24 (0-40) U/L Alkaline Phosphatase 78 (39-117) U/L Total Protein 6.3 L (6.5-8.0) g/dL Albumin 3.1 L (3.5-5.0) g/dL Blood Type Antibody Screen Crossmatch 08/18/21 Range/Units 01:44 WBC (4.8-10.8) X10*3/uL RBC (4.60-5.80) X10*6/uL Hgb (14.0-18.0) g/dl Hct (42-52) % MCV (80-98) fL MCH (27.0-33.0) pg MCHC (31.0-36.0) g/dl RDW (11.0-16.0) % Plt Count (160-400) X10*3/uL MPV (9.4-12.4) fL Immature Gran % (Auto) (0.0-0.4) % Neut % (Auto) (45-73) % Lymph % (Auto) (20-40) % [place] % (Auto) (2-11) % Eos % (Auto) (0-4) % Baso % (Auto) (0-2) % Lymph # (Auto) (1.2-4.9) X10*3/uL [place] # (Auto) (0.1-1.2) X10*3/uL Eos # (Auto) (0.0-0.4) X10*3/uL Baso # (Auto) (0.0-0.2) X10*3/uL Abs Immat Gran (auto) (0.00-0.03) X10*3/uL Absolute Neuts (auto) (2.0-8.3) X10*3/uL Absolute Nucleated RBC (0.0-0.012) X10*3/uL Nucleated RBC % (auto) (0.0-0.2) /100WBC PT (9.9-13.0) SEC INR (0.9-1.1) APTT (24.1-38.0) SEC Fibrinogen (259-690) MG/DL Sodium (135-145) mmol/L Potassium (3.3-5.1) mmol/L Chloride (96-108) mmol/L Carbon Dioxide (22-29) mmol/L Anion Gap (12-20) BUN (9-16) mg/dL Creatinine (0.5-1.4) mg/dL Estim Creat Clear Calc Estimated GFR Random Glucose (60-115) mg/dL Calcium (8.4-10.2) mg/dL Total Bilirubin (0.0-1.0) mg/dL AST (5-37) U/L ALT (0-40) U/L Alkaline Phosphatase (39-117) U/L Total Protein (6.5-8.0) g/dL Albumin (3.5-5.0) g/dL Blood Type AB Negative Antibody Screen NEGATIVE Crossmatch See Detail Discharge Plan Discharge Clinical Impression: Portal vein thrombosis, Hematoma of abdominal wall, Nontraumatic hematoma of muscle Patient Disposition: Admitted As Inpatient
[2021-08-18] MEDS: HYDROmorphone HCl 0.5 MG/0.5 ML SYRINGE IVPUSH (02:44)
--- NOTE | 2021-08-18 03:19 | PC.NURSE ---
pt off to CT
[2021-08-18] MEDS: iohexoL 350 MG/ML 100 ML INFUS..BTL IV (03:32)
--- NOTE | 2021-08-18 03:59 | PC.NURSE ---
pt requested to use the bathroom. this nurse offered pt bedside urinal but pt refused, stated that using the bedside urine is difficult for him due to fat and having a small member . this nurse and information technology director Roosevelt assisted pt to bathroom. gait slow but steady. pt denied any dizziness or lightheadedness while ambulating. aware
--- NOTE | 2021-08-18 04:08 | PC.NURSE ---
pt back from bathroom. requesting to speak to MD and have stomach examined before he gets back in bed. MD notified. MD at bedside
[2021-08-18] MEDS: HYDROmorphone HCl 0.5 MG/0.5 ML SYRINGE 0.25 MG IVPUSH (05:55)
[2021-08-18 06:29] LABS: Fibrinogen 538 MG/DL (259-690)
[2021-08-18 08:11] LABS: COVID-19 Test Negative (Negative)
--- NOTE | 2021-08-18 08:34 | PHA.MEDREC ---
Pharmacy Consult ? Medication Reconciliation Pharmacy has completed the medication reconciliation. Patient reports he was stop on Eliquis. He was told by his doctor to restart it however since he only has 3 more days of Lovenox he is waiting to finish the Lovenox to restart the Eliquis. Reports he has critically low potassium level. Use KCl supplements, most recent prescription for KCl 10 mEq take 2 tabs BID x 3 days then 2 tabs daily. Patient reports he is suppose to start 2 tabs daily today. Suri Blake, OmidD
[2021-08-18 09:20] LABS: Hematocrit 27.2 % (42-52); Hemoglobin 9.2 g/dl (14.0-18.0); Mean Corpuscular HGB Conc 33.8 g/dl (31.0-36.0); Mean Corpuscular Hemoglobin 32.9 pg (27.0-33.0); Mean Corpuscular Volume 97.1 fL (80-98); Mean Platelet Volume 10.3 fL (9.4-12.4); Red Cell Distribution Width 18.1 % (11.0-16.0); White Blood Count 2.7 X10*3/uL (4.8-10.8)
[2021-08-18 09:25] LABS: Platelet Count 66 X10*3/uL (160-400)
--- NOTE | 2021-08-18 09:31 | PM.IMHP ---
History of Present Illness Date of Service: 08/18/21 Chief Complaint: R leg pain This is a 41-year-old male with a past medical history of cirrhosis secondary to MCCOY, morbid obesity status post nadir breaths copy sleeve gastrectomy in May 2021, history of portal vein thrombosis on Lovenox, history of congestive heart failure on Lasix, history of diabetes which is now diet controlled who presents to the hospital complaints of right gluteal pain tingling and numbness which began acutely the evening prior to arrival. Patient reports that he was in his usual state of health and in fact had just completed an 8 hour shift at work. He reports that he came home and ultimately when he went to bed he felt pain in that region which he thought was a cramp. He reports that he tried to walk around to see if that would relieve his symptoms but the pain continued to get worse and so he presented to the emergency room. He denies any trauma to the region. Upon arrival to the emergency room he underwent workup including a CT scan of the abdomen and pelvis which showed a large 12 cm gluteal abscess. His known prior portal vein thrombosis had improved. The case was discussed by the ED provider with Hematology who recommended admission for closer monitoring. Review of Systems Review of Systems: General - denies fevers or chills, denies weakness or fatigue HEENT -denies blurred vision, denies headache, denies sore throat Cardiovascular - denies chest pain or palpitations, denies edema Respiratory - denies shortness of breath, coughing, wheezing Gastrointestinal - denies abdominal pain, nausea, vomiting, diarrhea - denies flank pain, denies dysuria, denies frequency or urgency Musculoskeletal - R gluteal region pain Neurological - denies any focal weakness or numbness Skin, denies any bruising or redness Psychiatric - denies any suicidal ideation, hallucinations, homicidal ideation Endocrinology - denies intolerance to hot / cold temperatures [facility] Medical History Cellulitis Cirrhosis of liver without ascites Congestive heart failure COVID-19 vaccine series completed Diabetes 1.5, managed as type 2 Essential hypertension Hiatal hernia HTN (hypertension) Hypertension, essential Hypokalemia Major depression, single episode Moderate major depression, single episode Morbid obesity Morbid obesity with BMI of 60.0-69.9, adult Personal history of COVID-19 Preoperative examination Shortness of breath Super obesity Trauma left hip Type 2 diabetes mellitus UTI (urinary tract infection) Vitamin A deficiency Vitamin B1 deficiency Family History Father Type 2 diabetes mellitus Heart disease Kidney failure Mother Obesity (BMI 30-39.9) Hypertension Brother No problems noted. Brother No problems noted. Other Mental health disorder Substance use disorder Pertinent family history: . Surgical History H/O discectomy History of repair of hiatal hernia S/P laparoscopic sleeve gastrectomy Social History Household Members: Other Household Members Other:: parents Housing: Apartment Are you a primary child caregiver to a significant other at home: No Do you presently have visiting nurse or other home services: No Alcohol intake: never Patient Tobacco Use Status: Never used Tobacco Use of substances other than those prescribed or required for medical reasons: No Advance Directives: No Advance Directives Information Provided: No service: No Current occupational status: unemployed Meds Allergies Allergy/AdvReac Type Severity Reaction Status Date / Time No Known Allergies Allergy Verified 08/01/21 15:21 Active Medications: Current Medications Acetaminophen (Acetaminophen 325 Mg Tablet) 650 mg PO Q6H PRN PRN Reason: Pain, Mild (Pain Scale 1-3) Hydromorphone HCl (Hydromorphone Hcl 1 Mg/Ml Syringe) 1 mg IVPUSH Q4H PRN; Protocol PRN Reason: Pain, Severe (Pain Scale 7-10) Ondansetron HCl (Ondansetron Hcl 4 Mg/2 Ml Vial) 4 mg IVPUSH Q8H PRN PRN Reason: Nausea and Vomiting Sodium Chloride (0.9 % Sodium Chloride Flush 3 Ml Syringe) [facility] Medications Medication Instructions Recorded Confirmed Last Taken Type [id number] 45 mg-folic 45 cap PO DAILY 05/25/21 08/18/21 08/17/21 History acid 800 mcg-vit K 120 mcg capsule (Bariatric Multivitamins) enoxaparin 100 mg/mL subcutaneous 190 mg SUBCUT Q12H ml 07/21/21 08/18/21 08/17/21 History syringe (Lovenox) inulin 2.5 gram chewable tablet 5 g PO .dialy tab 08/01/21 08/18/21 08/17/21 History potassium chloride 10 mEq 20 meq PO DAILY 08/18/21 08/18/21 08/17/21 History tablet,extended release Physical Exam Vital Signs and Narrative: Vital Signs: Last Vital Signs Temp 97.7 F 08/18/21 07:09 Pulse 73 08/18/21 07:09 Resp 16 08/18/21 07:09 BP 117/43 L 08/18/21 07:09 Pulse Ox 97 08/18/21 07:09 Body Mass Index 54.5 Const: Other: Constitutional - Awake and Alert, laying in prone position, appears to be in apin Eyes - PERRLA, EOMI Cardiovascular - S1S2, RRR, No edema Respiratory - Normal lung expansion, Normal respiratory effort, No respiratory distress, CTA bilaterally Gastrointestinal - NT / ND; +BS; No rebound or guarding - No CVA tenderness Extremities - no calf tenderness bilaterally, no swelling Musculoskeletal - R gluteal region ecchymosis and induration Skin - Warm/Dry Neurological - Alert & oriented x3, No focal deficit Psychological - Appropriate affect Results Labs CBC and Chem 7: 08/18/21 09:15 08/18/21 01:40 Labs: Laboratory Results - last 24 hr 08/18/21 08/18/21 08/18/21 01:40 01:40 01:40 MCV 97.9 MCH 33.2 H MCHC 33.9 RDW 18.2 H Plt Count 77 L MPV 10.3 Immature Gran % (Auto) 0.3 Neut % (Auto) 66.2 Lymph % (Auto) 21.3 [place] % (Auto) 11.2 H Eos % (Auto) 0.5 Baso % (Auto) 0.5 Lymph # (Auto) 0.8 L [place] # (Auto) 0.4 Eos # (Auto) 0.0 Baso # (Auto) 0.0 Abs Immat Gran (auto) 0.01 Absolute Neuts (auto) 2.5 Absolute Nucleated RBC 0.000 Nucleated RBC % (auto) 0.0 PT 16.5 H D INR 1.4 H APTT 56.3 H D Fibrinogen 538 Anion Gap 13 Estim Creat Clear Calc 120.1 Estimated GFR 58 Random Glucose 139 H Calcium 8.7 Total Bilirubin 4.5 H AST 53 H ALT 24 Alkaline Phosphatase 78 Total Protein 6.3 L Albumin 3.1 L COVID-19 (KARINA) COVID-19 Clin Com Blood Type Antibody Screen Crossmatch 08/18/21 08/18/21 08/18/21 01:44 07:45 09:15 MCV 97.1 MCH 32.9 MCHC 33.8 RDW 18.1 H Plt Count 66 L MPV 10.3 Immature Gran % (Auto) Neut % (Auto) Lymph % (Auto) [place] % (Auto) Eos % (Auto) Baso % (Auto) Lymph # (Auto) [place] # (Auto) Eos # (Auto) Baso # (Auto) Abs Immat Gran (auto) Absolute Neuts (auto) Absolute Nucleated RBC 0.000 Nucleated RBC % (auto) 0.0 PT INR APTT Fibrinogen Anion Gap Estim Creat Clear Calc Estimated GFR Random Glucose Calcium Total Bilirubin AST ALT Alkaline Phosphatase Total Protein Albumin COVID-19 (KARINA) Negative COVID-19 Clin Com See Note Blood Type AB Negative Antibody Screen NEGATIVE Crossmatch See Detail Imaging Radiologist's Impressions: Impressions Abdomen/Pelvis CT 08/18/21 01:03 IMPRESSION: * Large hematoma within the right gluteus soy measuring up to 12.0 cm. No significant mass effect upon the sciatic nerve. * Interval development of multiple collections of fluid within the ventral subcutaneous fat, possibly subcutaneous hematomas. * Significantly decreased thrombus within the portal and superior mesenteric vein with resolution of thrombus within the left and right portal veins, and splenic vein. * Decreased venous congestion and edema within the small bowel mesentery. * Morphologically cirrhotic liver with portal hypertension evidenced by large splenorenal shunt, and splenomegaly. * Markedly atrophic right kidney. * Sleeve gastrectomy. * Stable 4.0 cm left adrenal myelolipoma. Assessment and Plan (1) Nontraumatic hematoma of muscle: Status: Acute This is a 41 yo M with a PMH of Cirrhosis secondary to MCCOY, Portal/splenic/mesenteric vein thrombosis on Lovenox, CHF, DM (diet controlled), Morbid obesity s/p LSG in May 2021 who presents with sudden onset R gluteal pain. He is diagnosed with large gluteal hematoma. 1. R gluteal hemtoma, spontaneous/atraumatic 1a. Suspected abdominal wall hematoma In the setting on anticoagluation use monitor serial H/H, at least 6 hours -- transfuse below 8 or if symptomatic Will have general surgery on board in case intervention needed. 2. Portal/splenic/mesenteric vein thrombosis improved per CT hold anticoagulation due to above Will involve hematology -- his thrombi are less than 3 months old. 3. Morbid obesity - s/p LSG bariatric stage 3 outpatient f/u with Bariatric clinic 4. DM previously on oral meds -- last A1C is 4.8; now diet controlled 5. MCCOY cirrhosis baseline bili around 2, now 4.5 trend and invovle GI if worsens continue baseline meds 6. History of CHF, unspecified hold diuretics today, re-eval once bleding issue stable 7. HypoK replete with oral Full Code DVT pptx -- mechanical Due to the patients recent VTE and now large hematoma -- he will require inpatient level of care due to frequent monitoring of H/H as well as determining the time of resumption of anticoagulation. Quality Stroke Does the patient have a stroke diagnosis?: No VTE Prior VTE?: No VTE Risk Level:: Medical - moderate - high VTE Device Contraindication: N/A - Device Ordered VTE Drug Contraindication: Treatment Not Indicated
[2021-08-18] MEDS: Potassium Chloride ER 20 MEQ TAB.ER.PRT 60 MEQ PO (09:38)
[2021-08-18] MEDS: HYDROmorphone HCl 1 MG/ML SYRINGE IVPUSH ×3 (09:38→21:24)
[2021-08-18] MEDS: ondansetron HCL 4 MG/2 ML VIAL IVPUSH (11:12)
--- NOTE | 2021-08-18 14:11 | P.CNHO_ITS ---
Subjective - Subjective Chief complaint: Consult for: Subcutaneous hematomas, portal vein thrombosis on Lovenox. Patient: known to practice within the last 3 years Consult date: 08/18/21 Requesting Physician: Christiano. Primary Care Provider: Unknown Physician Medical Summary: DIAGNOSIS: Subcutaneous hematomas. On Lovenox for portal vein thrombosis. HPI - Consult Narrative Reason for consult: Consult for: Subcutaneous hematomas on Lovenox for portal vein thrombosis. Narrative: Valeriy Montes Jr is a pleasant 41 year old gentleman, with a history of portal vein thrombosis on Lovenox, history of congestive heart failure on Lasix, history of diabetes which is now diet controlled who presents to the hospital complaints of right gluteal pain tingling and numbness which began acutely the evening prior to arrival. Patient reports that he was in his usual state of health and in fact had just completed an 8 hour shift at work. He came home and ultimately when he went to bed, he felt pain in that region which he thought was a cramp. He tried to walk around to see if that would relieve his symptoms but the pain continued to get worse and so he presented to the emergency room. He denies any trauma to the region. CT scan of the abdomen and pelvis from today, showed: * Large hematoma within the right gluteus soy measuring up to 12.0 cm. No significant mass effect upon the sciatic nerve. * Interval development of multiple collections of fluid within the ventral lau bcutaneous fat, possibly subcutaneous hematomas. * Significantly decreased thrombus within the portal and superior mesenteric vein with resolution of thrombus within the left and right portal veins, and splenic vein. * Decreased venous congestion and edema within the small bowel mesentery. * Morphologically cirrhotic liver with portal hypertension evidenced by large splenorenal shunt, and splenomegaly. * Markedly atrophic right kidney. * Sleeve gastrectomy. * Stable 4.0 cm left adrenal myelolipoma. Past medical history of: Cirrhosis secondary to [place], Morbid obesity status post sleeve gastrectomy in May 2021. Review of Systems - Constitutional Reports system reviewed and no additional complaints, except as documented - Eyes Reports system reviewed and no additional complaints, except as documented - ENT Reports system reviewed and no additional complaints, except as documented - Cardiovascular Reports system reviewed and no additional complaints, except as documented - Respiratory Reports no additional respiratory complaints - Gastrointestinal Reports system reviewed and no additional complaints, except as documented - Genitourinary Genitourinary: Reports no additional male genitourinary complaints - Musculoskeletal Reports system reviewed and no additional complaints, except as documented - Integumentary/Breasts Skin/Breast: Reports no additional skin complaints - Neurologic Reports system reviewed and no additional complaints, except as documented - Psychiatric Reports system reviewed and no additional complaints, except as documented - Endocrine Reports no additional endocrine complaints - Hematologic/Lymphatic Reports system reviewed and no additional complaints, except as documented - Allergic/Immunologic Reports system reviewed and no additional complaints, except as documented PMFSH Medical History: Medical History (Last Reviewed 08/19/21 @ 12:26 by Tarah Case MD) Cellulitis Cirrhosis of liver without ascites Congestive heart failure COVID-19 vaccine series completed Diabetes 1.5, managed as type 2 Essential hypertension Hiatal hernia HTN (hypertension) Hypertension, essential Hypokalemia Major depression, single episode Moderate major depression, single episode Morbid obesity Morbid obesity with BMI of 60.0-69.9, adult Personal history of COVID-19 Preoperative examination Shortness of breath Super obesity Trauma left hip Type 2 diabetes mellitus UTI (urinary tract infection) Vitamin A deficiency Vitamin B1 deficiency Family History: Family History (Last Reviewed 08/19/21 @ 12:26 by Tarah Case MD) Father Type 2 diabetes mellitus Heart disease Kidney failure Mother Obesity (BMI 30-39.9) Hypertension Brother No problems noted. Brother No problems noted. Other Mental health disorder Substance use disorder Surgical History: Surgical History (Last Reviewed 08/19/21 @ 12:26 by Tarah Case MD) H/O discectomy History of repair of hiatal hernia S/P laparoscopic sleeve gastrectomy Social History: Social History (Last Reviewed 08/19/21 @ 12:26 by Tarah Case MD) Living Situation History: Household Members: Family Household Members Other:: parents Housing: Apartment Are you a primary healthcare social worker to a significant other at home: No Do you presently have visiting nurse or other home services: No Alcohol History: Alcohol intake: never Alcohol History Details: Alcohol intake frequency: does not drink Tobacco History: Patient Tobacco Use Status: Never used Tobacco Occupation Assessmet: service: No Current occupational status: unemployed Home Medications and Allergies Current Medications: Current Medications Acetaminophen (Acetaminophen 325 Mg Tablet) 650 mg PO Q6H PRN PRN Reason: Pain, Mild (Pain Scale 1-3) Hydromorphone HCl (Hydromorphone Hcl 1 Mg/Ml Syringe) 1 mg IVPUSH Q4H PRN; Protocol PRN Reason: Pain, Severe (Pain Scale 7-10) Last Admin: 08/18/21 09:38 Dose: 1 mg Documented by: Multivitamins/Vitamin C (Multivitamin Tablet) 1 tab PO DAILY [facility] Ondansetron HCl (Ondansetron Hcl 4 Mg/2 Ml Vial) 4 mg IVPUSH Q8H PRN PRN Reason: Nausea and Vomiting Last Admin: 08/18/21 11:12 Dose: 4 mg Documented by: Potassium Chloride (Potassium Chloride Er 10 Meq Capsule.Er) 20 meq PO DAILY [facility] Sodium Chloride (0.9 % Sodium Chloride Flush 3 Ml Syringe) 3 ml IVFLUSH QSHIFT [facility] Home Medications Medication Instructions Recorded Confirmed Type ozenrerv-rbgkdgoi-hjit 45 mg-folic 45 cap PO DAILY 05/25/21 08/18/21 History acid 800 mcg-vit K 120 mcg capsule (Bariatric Multivitamins) enoxaparin 100 mg/mL subcutaneous 190 mg SUBCUT Q12H ml 07/21/21 08/18/21 History syringe (Lovenox) inulin 2.5 gram chewable tablet 5 g PO .dialy tab 08/01/21 08/18/21 History potassium chloride 10 mEq 20 meq PO DAILY 08/18/21 08/18/21 History tablet,extended release Allergies Allergy/AdvReac Type Severity Reaction Status Date / Time No Known Allergies Allergy Verified 08/01/21 15:21 Physical Exam Vital signs: Vital Signs Temp 97.7 F 08/18/21 07:09 Pulse 73 08/18/21 07:09 Resp 18 08/18/21 09:36 BP 117/43 L 08/18/21 07:09 Pulse Ox 97 08/18/21 07:09 Intake & Output 08/17/21 08/18/21 08/18/21 18:59 06:59 18:59 Other: Weight 182.344 kg Weight 182.344 kg Hem/Onc Consult Result - Labs CBC & Chem 7: 08/20/21 06:04 08/20/21 06:04 Labs: Short CBC 08/18/21 08/18/21 Range/Units 01:40 09:15 WBC 3.8 L 2.7 L (4.8-10.8) X10*3/uL Hgb 9.3 L D 9.2 L (14.0-18.0) g/dl Hct 27.4 L D 27.2 L (42-52) % Plt Count 77 L 66 L (160-400) X10*3/uL BMP 08/18/21 01:40 Sodium 136 Potassium 3.0 L Chloride 101 Carbon Dioxide 25 BUN 21 H Creatinine 1.34 Calcium 8.7 Liver Function 08/18/21 Range/Units 01:40 Total Bilirubin 4.5 H (0.0-1.0) mg/dL AST 53 H (5-37) U/L ALT 24 (0-40) U/L Alkaline Phosphatase 78 (39-117) U/L Albumin 3.1 L (3.5-5.0) g/dL Assessment and Plan Patient Active problem list reviewed?: Yes (1) Hematoma of abdominal wall Status: Acute Assessment and plan: a pleasant 41 year old gentleman, with a history of portal vein thrombosis on Lovenox, history of congestive heart failure on Lasix, history of diabetes which is now diet controlled who presents to the hospital complaints of right gluteal pain tingling and numbness which began acutely the evening prior to arrival. Patient reports that he was in his usual state of health and in fact had just completed an 8 hour shift at work. * Large hematoma within the right gluteus soy measuring up to 12.0 cm. No significant mass effect upon the sciatic nerve. * Interval development of multiple collections of fluid within the ventral subcutaneous fat, possibly subcutaneous hematomas. * Significantly decreased thrombus within the portal and superior mesenteric vein with resolution of thrombus within the left and right portal veins, and splenic vein. * Decreased venous congestion and edema within the small bowel mesentery. * Morphologically cirrhotic liver with portal hypertension evidenced by large splenorenal shunt, and splenomegaly. * Markedly atrophic right kidney. * Sleeve gastrectomy. * Stable 4.0 cm left adrenal myelolipoma. Repeat CT scan of the abdomen shows significant improvement in the hematoma. I checked a DIC screen. Fibrinogen is elevated. PLAN: We have a couple of choices: One is to switch to a lower dose of Lovenox. Above BMI of 51 can use 0.7 milligram/kilogram dose. The other choice is to switch him over to Eliquis. He will return in 3 months for a follow-up visit. Thank you, CC: Dr. Alvarado. Dr. Hopson. - Time Spent With Patient Time Spent with Patient (in minutes): 30
[2021-08-18] MEDS: 0.9 % Sodium Chloride Flush 3 ML SYRINGE IVFLUSH (15:39)
[2021-08-19] MEDS: HYDROmorphone HCl 1 MG/ML SYRINGE IVPUSH ×6 (01:28→21:26)
[2021-08-19 06:23] LABS: Basophils Percent Auto 0.4 % (0-2); Eosinophils Percent Auto 1.2 % (0-4); Hematocrit 25.3 % (42-52); Hemoglobin 8.4 g/dl (14.0-18.0); Imm Gran Abs Auto 0.01 X10*3/uL (0.00-0.03); Imm Gran Pct Auto 0.4 % (0.0-0.4); Lymphocytes Absolute Auto 0.7 X10*3/uL (1.2-4.9); Lymphocytes Percent Auto 28.2 % (20-40); MANUAL DIFF FLAG SCAN; Mean Corpuscular HGB Conc 33.2 g/dl (31.0-36.0); Mean Corpuscular Hemoglobin 32.9 pg (27.0-33.0); Mean Corpuscular Volume 99.2 fL (80-98); Mean Platelet Volume 10.5 fL (9.4-12.4); Monocytes Absolute Auto 0.3 X10*3/uL (0.1-1.2); Monocytes Percent Auto 13.3 % (2-11); Neutrophils Absolute Auto 1.4 X10*3/uL (2.0-8.3); Neutrophils Percent Auto 56.5 % (45-73); Red Blood Count 2.55 X10*6/uL (4.60-5.80); Red Cell Distribution Width 18.5 % (11.0-16.0); SCAN SMEAR FLAG 1
[2021-08-19 06:30] LABS: Platelet Count 67 X10*3/uL (160-400)
[2021-08-19 06:31] LABS: White Blood Count 2.4 X10*3/uL (4.8-10.8)
[2021-08-19 06:43] LABS: SLIDE REVIEW VERIFIED
[2021-08-19 06:52] LABS: Anion Gap 12 (12-20); Blood Urea Nitrogen 15 mg/dL (9-16); Calcium 8.4 mg/dL (8.4-10.2); Carbon Dioxide 25 mmol/L (22-29); Chloride 104 mmol/L (96-108); Creatinine Clr Calc Pharmacy 167.6; Estimated Glomerular Filt Rate > 60; Glucose Random 105 mg/dL (60-115); Potassium 3.1 mmol/L (3.3-5.1); Sodium 138 mmol/L (135-145)
--- NOTE | 2021-08-19 07:48 | PC.NURSE ---
Assumed care of patient. Pt states he is hungry and not able to tolerate the ensures the kitchen has been sending for the bariatric diet. Pt states he can eat pureed and small amounts of eggs at home. Paged the doctor, but he has not responded. Called kitchen to get small amount of eggs, which they are hesitant to serve. Will page MD again to change diet order. Otherwise, pt is resting comfortably in bed and pain is controlled at this time.
[2021-08-19] MEDS: Multivitamin TABLET 1 TAB PO (08:30)
[2021-08-19] MEDS: Potassium Chloride ER 20 MEQ TAB.ER.PRT PO (09:29)
--- NOTE | 2021-08-19 12:12 | P.CONGS_ITS ---
History of Present Illness Consult details Consult date: 08/19/21 Reason for consult: other (Right gluteal hematoma) Requesting physician: Kashif Alvarado Narrative: This is a 41-year-old gentleman with a complicated past medical history who presented to the emergency department early yesterday with complaints of acute onset of right gluteal pain. He has a recent history of laparoscopic sleeve gastrectomy, done 05 10 2021. On 07/13/2021, he was diagnosed with portal vein thrombosis. He has been therapeutically anticoagulated with Lovenox since that time. He also has a history of cirrhosis, hypersplenism and pancytopenia. On 08/17/2021, he noticed a spasm like sensation and tingling in his right gluteal area. Later at night, as he was lying down, he twisted and felt a pop in the right gluteal area and had a sudden increase in pain. After short time, he asked a family member to check the area. Significant ecchymotic change was p resent. Because of the pain and the ecchymotic change, he elected to come to the emergency department. A CT scan of the abdomen and pelvis was obtained and demonstrated a large hematoma in the right gluteus soy. There is no evidence of sciatic nerve compression. He reports difficulty with movement in ambulation because of the right buttock pain, but he is able to get out of bed and ambulate slowly. Review of Systems Constitutional: Constitutional: Denies chills, Denies fever(s) and Denies poor appetite ENT: Denies dizziness Cardiovascular: Cardiovascular: Denies chest pain and Reports dyspnea Respiratory: Respiratory: Reports dyspnea Gastrointestinal: Comments: He reports some difficulty eating following the sleeve gastrectomy, apparently worsened around the time that the portal vein thrombosis was identified in July Genitourinary: Genitourinary: Reports no additional male genitourinary complaints Musculoskeletal: Musculoskeletal: Reports as per HPI Integumentary/Breasts: Comments: Numerous ecchymoses related to Lovenox Neurologic: Denies dizziness Hematologic/Lymphatic: Hematologic/Lymphatic: Reports as per HPI and Reports easy bruising PMFSH Past Medical History Medical History Cellulitis Cirrhosis of liver without ascites Congestive heart failure COVID-19 vaccine series completed Diabetes 1.5, managed as type 2 Essential hypertension Hiatal hernia HTN (hypertension) Hypertension, essential Hypokalemia Major depression, single episode Moderate major depression, single episode Morbid obesity Morbid obesity with BMI of 60.0-69.9, adult Personal history of COVID-19 Preoperative examination Shortness of breath Super obesity Trauma left hip Type 2 diabetes mellitus UTI (urinary tract infection) Vitamin A deficiency Vitamin B1 deficiency Family History Family History Father Type 2 diabetes mellitus Heart disease Kidney failure Mother Obesity (BMI 30-39.9) Hypertension Brother No problems noted. Brother No problems noted. Other Mental health disorder Substance use disorder Surgical History Surgical History H/O discectomy History of repair of hiatal hernia S/P laparoscopic sleeve gastrectomy Social History Social History Household Members: Other Household Members Other:: parents Housing: Apartment Are you a primary director career services to a significant other at home: No Do you presently have visiting nurse or other home services: No Alcohol intake: never Patient Tobacco Use Status: Never used Tobacco service: No Current occupational status: unemployed Meds Allergies Allergy/AdvReac Type Severity Reaction Status Date / Time No Known Allergies Allergy Verified 08/01/21 15:21 Active Medications: Current Medications Acetaminophen (Acetaminophen 325 Mg Tablet) 650 mg PO Q6H PRN PRN Reason: Pain, Mild (Pain Scale 1-3) Hydromorphone HCl (Hydromorphone Hcl 1 Mg/Ml Syringe) 1 mg IVPUSH Q4H PRN; Protocol PRN Reason: Pain, Severe (Pain Scale 7-10) Last Admin: 08/19/21 10:22 Dose: 1 mg Documented by: Multivitamins/Vitamin C (Multivitamin Tablet) 1 tab PO DAILY [facility] Last Admin: 08/19/21 08:30 Dose: 1 tab Documented by: Ondansetron HCl (Ondansetron Hcl 4 Mg/2 Ml Vial) 4 mg IVPUSH Q8H PRN PRN Reason: Nausea and Vomiting Last Admin: 08/18/21 11:12 Dose: 4 mg Documented by: Potassium Chloride (Potassium Chloride Er 10 Meq Capsule.Er) 20 meq PO DAILY [facility] Last Admin: 08/19/21 08:30 Dose: 20 meq Documented by: Sodium Chloride (0.9 % Sodium Chloride Flush 3 Ml Syringe) 3 ml IVFLUSH QSHIFT [facility] Last Admin: 08/19/21 07:36 Dose: Not Given Documented by: Home Medications Medication Instructions Recorded Confirmed Last Taken Type atkkuwyw-tzdbqmsq-iyep 45 mg-folic 45 cap PO DAILY 05/25/21 08/18/21 08/17/21 History acid 800 mcg-vit K 120 mcg capsule (Bariatric Multivitamins) enoxaparin 100 mg/mL subcutaneous 190 mg SUBCUT Q12H ml 07/21/21 08/18/21 08/17/21 History syringe (Lovenox) inulin 2.5 gram chewable tablet 5 g PO .dialy tab 08/01/21 08/18/21 08/17/21 History potassium chloride 10 mEq 20 meq PO DAILY 08/18/21 08/18/21 08/17/21 History tablet,extended release Physical Exam Vital Signs: Vital Signs: Last Vital Signs Temp 98.0 F 08/18/21 23:58 Pulse 70 08/18/21 23:58 Resp 68 H 08/18/21 15:32 BP 127/47 L 08/18/21 23:58 Pulse Ox 97 08/18/21 23:58 Body Mass Index 54.5 Const: General: cooperative, no acute distress and alert Orientation/consciousness: patient oriented x3 HENMT: Head: Yes normocephalic and Yes atraumatic Eyes: Other: Scleral icterus noted EOM: EOMs intact bilaterally Neck: Neck: Yes trachea midline and Yes supple Resp: Effort & Inspection: normal respiratory effort Auscultation: clear to auscultation bilaterally Cardio: Rate: regular rate Rhythm: regular rhythm GI: Other: Round, soft, generally nontender Inspection: Yes abdominal wall ecchymosis Back/Spine/Pelvis: Other: Right gluteal area firm, generally tender, mild ecch ymotic change noted proximal aspect right posterior thigh Neuro: General: patient oriented x3 Extrem: Other: Right hip flexion limited by pain Results Labs Result diagrams: 08/19/21 05:51 08/19/21 05:51 Labs: Abnormal lab results 08/18/21 08/19/21 08/19/21 Range/Units 01:44 05:51 05:51 WBC 2.4 L (4.8-10.8) X10*3/uL RBC 2.55 L (4.60-5.80) X10*6/uL Hgb 8.4 L (14.0-18.0) g/dl Hct 25.3 L (42-52) % MCV 99.2 H (80-98) fL RDW 18.5 H (11.0-16.0) % Plt Count 67 L (160-400) X10*3/uL [place] % (Auto) 13.3 H (2-11) % Lymph # (Auto) 0.7 L (1.2-4.9) X10*3/uL Absolute Neuts (auto) 1.4 L (2.0-8.3) X10*3/uL Potassium 3.1 L (3.3-5.1) mmol/L Crossmatch See Detail Short CBC 08/19/21 Range/Units 05:51 WBC 2.4 L (4.8-10.8) X10*3/uL Hgb 8.4 L (14.0-18.0) g/dl Hct 25.3 L (42-52) % Plt Count 67 L (160-400) X10*3/uL BMP 08/19/21 05:51 Sodium 138 Potassium 3.1 L Chloride 104 Carbon Dioxide 25 BUN 15 Creatinine 0.96 Calcium 8.4 All other labs normal. Imaging Abdomen CT scan report/results: report reviewed and image reviewed CT scan - pelvis: report reviewed and image reviewed Additional studies: CT scan abdomen and pelvis 08/18/2021: IMPRESSION: *? Large hematoma within the right gluteus soy measuring up to 12.0 cm. No significant mass effect upon the sciatic nerve. *? Interval development of multiple collections of fluid within the ventral subcutaneous fat, possibly subcutaneous hematomas. *? Significantly decreased thrombus within the portal and superior mesenteric vein with resolution of thrombus within the left and right portal veins, and splenic vein. *? Decreased venous congestion and edema within the small bowel mesentery. *? Morphologically cirrhotic liver with portal hypertension evidenced by large splenorenal shunt, and splenomegaly. *? Markedly atrophic right kidney. *? Sleeve gastrectomy. *? Stable 4.0 cm left adrenal myelolipoma. Dictated By: LYNDON KEY MD Signed By: <Electronically signed by LYNDON KEY MD in OV> 08/18/21 0355 Assessment and Plan (1) Portal vein thrombosis: Status: Acute (2) Nontraumatic hematoma of muscle: Status: Acute (3) Cirrhosis of liver without ascites: Status: Acute (4) Pancytopenia: Status: Acute 41-year-old male with a history of morbid obesity status post laparoscopic sleeve gastrectomy, history of cirrhosis and pancytopenia, recent diagnosis of portal vein thrombosis requiring therapeutic anticoagulation presenting with nontraumatic hematoma right gluteus soy as well as numerous small hematomas of the abdominal wall secondary to Lovenox injections. Would continue to hold anticoagulation at this time and to follow H and H. H&H has dropped somewhat from admission, from 9.3 and 27.4 to 8.4 and 25.3 over about the past 24 hours, likely due to equilibration. If remains stable over next couple of days, can resume anticoagulation, consider IV heparin without bolus. Medically complex situation. If there is evidence of recurrent bleeding either prior to or with resumption of anticoagulation, transfer to tertiary care may be needed. Consider early referral. General surgery will follow along. Procedures Date of Service Date of Service: 08/19/21
[2021-08-19 12:31] VITALS: BP 109/49; PULSE 77; RESP 18; TEMP 36.5; O2SAT 97
--- NOTE | 2021-08-19 13:28 | PC.NURSE ---
call for report, rn to call back
--- NOTE | 2021-08-19 14:53 | MHC.CM.PN ---
Met with patient in regards to discharge planning. Patient lives with his parents, ambulates independently and had no services prior to coming to the hospital No services anticipated to be needed because patient is not homebound. PCP verified as Dr Riaz Hopson. Copy of HCP verified to be on file. Patient received 2 Moderna vaccines. Patient's parents will transport patient home when medically stable. However, patient feels it will be a very long time before I feel I'm ready to be discharged. T/W explained case management meets with patients at the beginning of admission and will follow for discharge needs throughout admission. Patient verbalized understanding. Continue to monitor for d/c needs.
[2021-08-19 15:24] VITALS: BP 145/84; PULSE 83; RESP 17; TEMP 36.6; O2SAT 97
--- NOTE | 2021-08-19 15:33 | PM.IMPN ---
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 He is diagnosed with large gluteal hematoma. R gluteal hemtoma, spontaneous/atraumatic 1a. Suspected abdominal wall hematoma In the setting on anticoagluation use monitor serial H/H, at least 6 hours -- transfuse below 8 or if symptomatic Gen surg rec Holding ac for now Portal/splenic/mesenteric vein thrombosis improved per CT hold anticoagulation due to above Will involve hematology -- his thrombi are less than 3 months old. Morbid obesity - s/p LSG bariatric stage 4 outpatient f/u with Bariatric clinic DM previously on oral meds -- last A1C is 4.8; now diet controlled MCCOY cirrhosis baseline bili around 2, now 4.5 trend and involve GI if worsens continue baseline meds History of CHF, unspecified hold diuretics today, re-eval once bleeding issue stable HypoK replete with oral Full Code DVT pptx -- mechanical Due to the patients recent VTE and now large hematoma -- he will require inpatient level of care due to frequent monitoring of H/H as well as determining the time of resumption of anticoagulation. Attending Dr. Robertson Subjective Subjective Date of Service: 08/19/21 Review of Systems Follow up hematoma pain to back no overt bleeding Physical Exam Vital Signs: Vital Signs: Last Vital Signs Temp 97.9 F 08/19/21 15:24 Pulse 83 08/19/21 15:24 Resp 17 08/19/21 15:24 BP 145/84 H 08/19/21 15:24 Pulse Ox 97 08/19/21 15:24 Body Mass Index 54.5 Appearing in no acute distress lung sounds are clear to auscultation heart regular rate rhythm, clear S1, S2 positive bowel sounds, abdomen is soft, nontender neuro patient is alert x3, no focal deficits Extensive bruising to pannus, chest and right gluteal area Objective Data Current Medications Acetaminophen (Acetaminophen 325 Mg Tablet) 650 mg PO Q6H PRN PRN Reason: Pain, Mild (Pain Scale 1-3) Hydromorphone HCl (Hydromorphone Hcl 1 Mg/Ml Syringe) 1 mg IVPUSH Q4H PRN; Protocol PRN Reason: Pain, Severe (Pain Scale 7-10) Last Admin: 08/19/21 14:49 Dose: 1 mg Documented by: Multivitamins/Vitamin C (Multivitamin Tablet) 1 tab PO DAILY [facility] Last Admin: 08/19/21 08:30 Dose: 1 tab Documented by: Ondansetron HCl (Ondansetron Hcl 4 Mg/2 Ml Vial) 4 mg IVPUSH Q8H PRN PRN Reason: Nausea and Vomiting Last Admin: 08/18/21 11:12 Dose: 4 mg Documented by: Potassium Chloride (Potassium Chloride Er 10 Meq Capsule.Er) 20 meq PO DAILY [facility] Last Admin: 08/19/21 08:30 Dose: 20 meq Documented by: Sodium Chloride (0.9 % Sodium Chloride Flush 3 Ml Syringe) 3 ml IVFLUSH QSHIFT [facility] Last Admin: 08/19/21 07:36 Dose: Not Given Documented by: Labs CBC & Chem 7: 08/19/21 05:51 08/19/21 05:51 Labs: Laboratory Results - last 24 hr 08/19/21 08/19/21 05:51 05:51 MCV 99.2 H MCH 32.9 MCHC 33.2 RDW 18.5 H Plt Count 67 L MPV 10.5 Immature Gran % (Auto) 0.4 Neut % (Auto) 56.5 Lymph % (Auto) 28.2 [place] % (Auto) 13.3 H Eos % (Auto) 1.2 Baso % (Auto) 0.4 Lymph # (Auto) 0.7 L [place] # (Auto) 0.3 Eos # (Auto) 0.0 Baso # (Auto) 0.0 Abs Immat Gran (auto) 0.01 Absolute Neuts (auto) 1.4 L Absolute Nucleated RBC 0.000 Nucleated RBC % (auto) 0.0 Smear Tech's Comments VERIFIED Anion Gap 12 Estim Creat Clear Calc 167.6 Estimated GFR > 60 Random Glucose 105 Calcium 8.4 Quality Stroke Does the patient have a stroke diagnosis?: No VTE Prior VTE?: No VTE Risk Level:: Medical - moderate - high VTE Device Contraindication: N/A - Device Ordered VTE Drug Contraindication: Treatment Not Indicated
[2021-08-19 18:10] VITALS: RESP 16
[2021-08-19 19:59] VITALS: BP 135/59; PULSE 96; RESP 18; TEMP 36.3; O2SAT 96
[2021-08-19 21:26] VITALS: RESP 18
[2021-08-20] VITALS: BP 113/55; PULSE 84; RESP 17; TEMP 36.6; O2SAT 98
[2021-08-20 04:31] VITALS: BP 134/60; PULSE 74; RESP 17; TEMP 36.3; O2SAT 99
[2021-08-20 06:15] LABS: Hematocrit 24.7 % (42-52); Hemoglobin 8.2 g/dl (14.0-18.0); Mean Corpuscular HGB Conc 33.2 g/dl (31.0-36.0); Mean Corpuscular Hemoglobin 33.3 pg (27.0-33.0); Mean Corpuscular Volume 100.4 fL (80-98); Mean Platelet Volume 10.4 fL (9.4-12.4); Red Blood Count 2.46 X10*6/uL (4.60-5.80); Red Cell Distribution Width 18.6 % (11.0-16.0); White Blood Count 2.6 X10*3/uL (4.8-10.8)
[2021-08-20 06:23] VITALS: RESP 20
[2021-08-20 06:23] LABS: Platelet Count 59 X10*3/uL (160-400)
[2021-08-20] MEDS: HYDROmorphone HCl 1 MG/ML SYRINGE IVPUSH ×5 (06:23→23:55)
[2021-08-20] MEDS: ondansetron HCL 4 MG/2 ML VIAL IVPUSH (06:28)
[2021-08-20 06:33] LABS: Anion Gap 11 (12-20); Blood Urea Nitrogen 13 mg/dL (9-16); Calcium 8.3 mg/dL (8.4-10.2); Carbon Dioxide 25 mmol/L (22-29); Chloride 105 mmol/L (96-108); Estimated Glomerular Filt Rate > 60; Glucose Random 104 mg/dL (60-115); Potassium 3.3 mmol/L (3.3-5.1); Sodium 138 mmol/L (135-145)
[2021-08-20 08:00] VITALS: BP 152/66; PULSE 79; RESP 18; TEMP 36.8; O2SAT 98
[2021-08-20] MEDS: 0.9 % Sodium Chloride Flush 3 ML SYRINGE IVFLUSH ×3 (08:33→15:59)
[2021-08-20] MEDS: Furosemide 20 MG TABLET PO (08:33)
[2021-08-20] MEDS: Multivitamin TABLET 1 TAB PO (08:34)
--- NOTE | 2021-08-20 09:09 | PM.IMPN ---
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 He is diagnosed with large gluteal hematoma. R gluteal hemtoma, spontaneous/atraumatic 1a. Suspected abdominal wall hematoma In the setting on anticoagluation use monitor serial H/H, at least 6 hours -- transfuse below 8 or if symptomatic Gen surg rec Holding ac for now, no surgical intervention pain control Portal/splenic/mesenteric vein thrombosis improved per CT hold anticoagulation due to above Will involve hematology -- his thrombi are less than 3 months old. Morbid obesity - s/p LSG bariatric stage 6 diet outpatient f/u with Bariatric clinic DM previously on oral meds -- last A1C is 4.8; now diet controlled MCCOY cirrhosis baseline bili around 2 trend and involve GI if worsens continue baseline meds History of CHF, unspecified continue lasix HypoK replete with oral Full Code DVT pptx -- mechanical Due to the patients recent VTE and now large hematoma -- he will require inpatient level of care due to frequent monitoring of H/H as well as determining the time of resumption of anticoagulation. Attending Dr. Robertson Subjective Subjective Date of Service: 08/20/21 Review of Systems Follow up hematoma pain to back no overt bleeding Physical Exam Vital Signs: Vital Signs: Last Vital Signs Temp 98.3 F 08/20/21 08:00 Pulse 79 08/20/21 08:00 Resp 18 08/20/21 08:00 BP 152/66 H 08/20/21 08:00 Pulse Ox 98 08/20/21 08:00 Body Mass Index 54.5 Appearing in no acute distress lung sounds are clear to auscultation heart regular rate rhythm, clear S1, S2 positive bowel sounds, abdomen is soft, obese neuro patient is alert x3, no focal deficits Multiple areas of bruising to abdomen, right glute, and chest Objective Data Current Medications Acetaminophen (Acetaminophen 325 Mg Tablet) 650 mg PO Q6H PRN PRN Reason: Pain, Mild (Pain Scale 1-3) Furosemide (Furosemide 20 Mg Tablet) 20 mg PO DAILY [facility]; Protocol Last Admin: 08/20/21 08:33 Dose: 20 mg Documented by: Hydromorphone HCl (Hydromorphone Hcl 1 Mg/Ml Syringe) 1 mg IVPUSH Q3H PRN; Protocol PRN Reason: Pain, Severe (Pain Scale 7-10) Last Admin: 08/20/21 06:23 Dose: 1 mg Documented by: Multivitamins/Vitamin C (Multivitamin Tablet) 1 tab PO DAILY [facility] Last Admin: 08/20/21 08:34 Dose: 1 tab Documented by: Ondansetron HCl (Ondansetron Hcl 4 Mg/2 Ml Vial) 4 mg IVPUSH Q8H PRN PRN Reason: Nausea and Vomiting Last Admin: 08/20/21 06:28 Dose: 4 mg Documented by: Potassium Chloride (Potassium Chloride Er 10 Meq Capsule.Er) 20 meq PO DAILY [facility] Last Admin: 08/20/21 08:34 Dose: 20 meq Documented by: Sodium Chloride (0.9 % Sodium Chloride Flush 3 Ml Syringe) 3 ml IVFLUSH QSHIFT [facility] Last Admin: 08/20/21 08:33 Dose: 3 ml Documented by: Labs CBC & Chem 7: 08/20/21 06:04 08/20/21 06:04 Labs: Laboratory Results - last 24 hr 08/20/21 08/20/21 06:04 06:04 MCV 100.4 H MCH 33.3 H MCHC 33.2 RDW 18.6 H Plt Count 59 L MPV 10.4 Absolute Nucleated RBC 0.000 Nucleated RBC % (auto) 0.0 Anion Gap 11 L Estim Creat Clear Calc 185.0 Estimated GFR > 60 Random Glucose 104 Calcium 8.3 L Quality Stroke Does the patient have a stroke diagnosis?: No VTE Prior VTE?: No VTE Risk Level:: Medical - moderate - high VTE Device Contraindication: N/A - Device Ordered VTE Drug Contraindication: Treatment Not Indicated
--- NOTE | 2021-08-20 11:51 | P.PNGS_ITS ---
Subjective Subjective Date of Service: 08/20/21 Interval history: No new complaints. Continues to have significant pain associated with right gluteal hematoma. Reports new itching around abdominal wall ecchymoses. Laboratory Results - last 24 hr 08/20/21 08/20/21 06:04 06:04 WBC 2.6 L RBC 2.46 L Hgb 8.2 L Hct 24.7 L MCV 100.4 H MCH 33.3 H MCHC 33.2 RDW 18.6 H Plt Count 59 L MPV 10.4 Absolute Nucleated RBC 0.000 Nucleated RBC % (auto) 0.0 Sodium 138 Potassium 3.3 Chloride 105 Carbon Dioxide 25 Anion Gap 11 L BUN 13 Creatinine 0.87 Estim Creat Clear Calc 185.0 Estimated GFR > 60 Random Glucose 104 Calcium 8.3 L Physical Exam Vital Signs: Vital Signs: Last Vital Signs Temp 98.3 F 08/20/21 08:00 Pulse 79 08/20/21 08:00 Resp 18 08/20/21 08:00 BP 152/66 H 08/20/21 08:00 Pulse Ox 98 08/20/21 08:00 Body Mass Index 54.5 Const: General: cooperative, no acute distress and alert HENMT: Other: Firm moderately tender area region of left masseter muscle without overlying hematoma or ecchymotic change Resp: Effort & Inspection: normal respiratory effort Auscultation: clear to auscultation bilaterally Cardio: Palpation: normal PMI Rate: regular rate GI: Other: Round, generally soft with numerous ecchymoses and areas of induration in subcutaneous tissues consistent with small hematomas Back/Spine/Pelvis: Other: Right gluteal area is firm, ecchymotic and moderately tender Procedures Date of Service Date of Service: 08/20/21 Progress Note: A&P Assessment and plan (1) Portal vein thrombosis: Status: Acute (2) Hematoma of abdominal wall: Status: Acute (3) Nontraumatic hematoma of muscle: Status: Acute (4) Cirrhosis of liver without ascites: Status: Acute (5) Pancytopenia: Status: Acute Assessment and Plan: 41-year-old male with a history of morbid obesity status post laparoscopic sleeve gastrectomy, history of MCCOY related cirrhosis and pancytopenia, recent diagnosis of portal vein thrombosis requiring therapeutic anticoagulation presenting with nontraumatic hematoma right gluteus soy as well as numerous small hematomas of the abdominal wall secondary to Lovenox injections. Hemoglobin and hematocrit are stable. He has no evidence of recurrent bleeding. Had been on Lovenox for therapeutic anticoagulation, now on hold day 3. If he remains stable, without evidence of recurrent bleeding over next 24 hours, consider resuming anticoagulation with IV heparin initially. Fall Risk Details Current Medications: Current Medications Acetaminophen (Acetaminophen 325 Mg Tablet) 650 mg PO Q6H PRN PRN Reason: Pain, Mild (Pain Scale 1-3) Furosemide (Furosemide 20 Mg Tablet) 20 mg PO DAILY [facility]; Protocol Last Admin: 08/20/21 08:33 Dose: 20 mg Documented by: Hydromorphone HCl (Hydromorphone Hcl 1 Mg/Ml Syringe) 1 mg IVPUSH Q3H PRN; Protocol PRN Reason: Pain, Severe (Pain Scale 7-10) Last Admin: 08/20/21 10:52 Dose: 1 mg Documented by: Multivitamins/Vitamin C (Multivitamin Tablet) 1 tab PO DAILY [facility] Last Admin: 08/20/21 08:34 Dose: 1 tab Documented by: Ondansetron HCl (Ondansetron Hcl 4 Mg/2 Ml Vial) 4 mg IVPUSH Q8H PRN PRN Reason: Nausea and Vomiting Last Admin: 08/20/21 06:28 Dose: 4 mg Documented by: Potassium Chloride (Potassium Chloride Er 10 Meq Capsule.Er) 20 meq PO DAILY [facility] Last Admin: 08/20/21 08:34 Dose: 20 meq Documented by: Sodium Chloride (0.9 % Sodium Chloride Flush 3 Ml Syringe) 3 ml IVFLUSH QSHIFT [facility] Last Admin: 08/20/21 08:33 Dose: 3 ml Documented by: Time Spent With Patient Time: Total time spent is greater than 50% in coordination of care (as documented) at patient's floor/unit and/or counseling patient: Time with patient: less than 15 minutes Quality Stroke Does the patient have a stroke diagnosis?: No VTE Prior VTE?: No VTE Risk Level:: Medical - moderate - high VTE Device Contraindication: N/A - Device Ordered VTE Drug Contraindication: Treatment Not Indicated
[2021-08-20 15:50] VITALS: BP 139/65; PULSE 83; RESP 18; TEMP 36.4; O2SAT 100
[2021-08-20 15:59] VITALS: RESP 18
[2021-08-21] VITALS: BP 140/64; PULSE 85; RESP 18; TEMP 36.9; O2SAT 98
[2021-08-21] MEDS: HYDROmorphone HCl 1 MG/ML SYRINGE IVPUSH ×3 (04:58→22:54)
[2021-08-21 06:05] LABS: Hematocrit 24.6 % (42-52); Hemoglobin 8.1 g/dl (14.0-18.0); Mean Corpuscular HGB Conc 32.9 g/dl (31.0-36.0); Mean Corpuscular Hemoglobin 33.8 pg (27.0-33.0); Mean Corpuscular Volume 102.5 fL (80-98); Mean Platelet Volume 9.9 fL (9.4-12.4); Red Cell Distribution Width 18.9 % (11.0-16.0)
[2021-08-21 06:13] LABS: Platelet Count 53 X10*3/uL (160-400); White Blood Count 2.2 X10*3/uL (4.8-10.8)
[2021-08-21 08:00] VITALS: BP 120/59; PULSE 83; RESP 18; TEMP 36.1; O2SAT 99
--- NOTE | 2021-08-21 08:20 | P.PNGS_ITS ---
Subjective Subjective Date of Service: 08/21/21 Interval history: Says he has pain on the hematoma site near the right buttock Otherwise no new complaints Stable overnight Has been off anticoagulation Physical Exam Vital Signs: Vital Signs: Last Vital Signs Temp 97 F 08/21/21 08:00 Pulse 83 08/21/21 08:00 Resp 18 08/21/21 08:00 BP 120/59 L 08/21/21 08:00 Pulse Ox 99 08/21/21 08:00 Body Mass Index 54.5 Chemistry 08/19/21 08/20/21 05:51 06:04 Sodium 138 138 Potassium 3.1 L 3.3 Carbon Dioxide 25 25 BUN 15 13 Creatinine 0.96 0.87 Calcium 8.4 8.3 L Hematology 08/18/21 08/19/21 08/20/21 09:15 05:51 06:04 WBC 2.7 L 2.4 L 2.6 L Hgb 9.2 L 8.4 L 8.2 L Plt Count 66 L 67 L 59 L 08/21/21 05:56 WBC 2.2 L Hgb 8.1 L Plt Count 53 L Const: General: comfortable and no acute distress Nutritional Appearance: obese Resp: Effort & Inspection: normal respiratory effort Cardio: Rate: regular rate GI: Inspection: Yes abdominal wall ecchymosis Palpation (GI): Soft to palpation, not firm and no guarding Back/Spine/Pelvis: Other: Ecchymosis on the area just above the right buttock, tender in this area all the way to the buttock, with vague induration Procedures Date of Service Date of Service: 08/21/21 Progress Note: A&P Assessment and plan (1) Nontraumatic hematoma of muscle: Status: Acute Assessment and Plan: Hemoglobin seems stable Hematoma does not seem to be expanding Okay to start anticoagulation later today or tomorrow morning Continue to follow hemoglobin Explained plan to patient Discussed with hospitalist service Fall Risk Details Current Medications: Current Medications Acetaminophen (Acetaminophen 325 Mg Tablet) 650 mg PO Q6H PRN PRN Reason: Pain, Mild (Pain Scale 1-3) Furosemide (Furosemide 20 Mg Tablet) 20 mg PO DAILY [facility]; Protocol Last Admin: 08/20/21 08:33 Dose: 20 mg Documented by: Hydromorphone HCl (Hydromorphone Hcl 1 Mg/Ml Syringe) 1 mg IVPUSH Q3H PRN; Protocol PRN Reason: Pain, Severe (Pain Scale 7-10) Last Admin: 08/21/21 04:58 Dose: 1 mg Documented by: Multivitamins/Vitamin C (Multivitamin Tablet) 1 tab PO DAILY [facility] Last Admin: 08/20/21 08:34 Dose: 1 tab Documented by: Ondansetron HCl (Ondansetron Hcl 4 Mg/2 Ml Vial) 4 mg IVPUSH Q8H PRN PRN Reason: Nausea and Vomiting Last Admin: 08/20/21 06:28 Dose: 4 mg Documented by: Potassium Chloride (Potassium Chloride Er 10 Meq Capsule.Er) 20 meq PO DAILY [facility] Last Admin: 08/20/21 08:34 Dose: 20 meq Documented by: Sodium Chloride (0.9 % Sodium Chloride Flush 3 Ml Syringe) 3 ml IVFLUSH QSHIFT [facility] Last Admin: 08/21/21 01:50 Dose: Not Given Documented by: Time Spent With Patient Time: Total time spent is greater than 50% in coordination of care (as document ed) at patient's floor/unit and/or counseling patient: Time with patient: 15 - 24 minutes Quality Stroke Does the patient have a stroke diagnosis?: No VTE Prior VTE?: No VTE Risk Level:: Medical - moderate - high VTE Device Contraindication: N/A - Device Ordered VTE Drug Contraindication: Treatment Not Indicated
[2021-08-21] MEDS: Multivitamin TABLET 1 TAB PO (09:05)
[2021-08-21] MEDS: Furosemide 20 MG TABLET PO (09:05)
[2021-08-21] MEDS: 0.9 % Sodium Chloride Flush 3 ML SYRINGE IVFLUSH (09:05)
--- NOTE | 2021-08-21 09:24 | MHC.CM.PN ---
EMR REVIEWED, PER SURGICAL PT CONT'S TO HAVE PAIN AT HEMATOMA SITE, PT TO RESTART ON ANTICOAGULANT TODAY OR TOMORROW, NO PLAN FOR D/C TODAY, ANTICIPATE 1-2 MORE DAYS. CM TO CONT TO FOLLOW. D/C PLAN: HOME NO SERVICES, FAMILY TO TRANSPORT.
[2021-08-21] MEDS: oxyCODONE HCl Immed Release 5 MG TABLET 10 MG PO (10:36)
[2021-08-21] MEDS: Acetaminophen 325 MG TABLET 650 MG PO (10:36)
--- NOTE | 2021-08-21 12:20 | P.PNIM_ITS ---
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 He is diagnosed with large gluteal hematoma. R gluteal hemtoma, spontaneous/atraumatic 1a. Suspected abdominal wall hematoma In the setting on anticoagluation use monitor serial H/H, at least 6 hours -- transfuse below 8 or if symptomatic Gen surg rec Holding ac for now, no surgical intervention pain control Discussed with Hematology will start Eliquis today Portal/splenic/mesenteric vein thrombosis improved per CT hold anticoagulation due to above Discussed with Hematology will start Eliquis today Morbid obesity - s/p LSG Patient insisting on having a regular diet as he stated that he is past the bariatric diet stage outpatient f/u with Bariatric clinic DM previously on oral meds -- last A1C is 4.8; now diet controlled MCCOY cirrhosis baseline bili around 2 trend and involve GI if worsens continue baseline meds History of CHF, unspecified continue lasix HypoK replete with oral Full Code DVT pptx Eliquis Due to the patients recent VTE and now large hematoma -- he will require inpatient level of care due to frequent monitoring of H/H as well as determining the time of resumption of anticoagulation. Attending Dr. Alvarado Subjective Subjective Date of Service: 08/21/21 Review of Systems Follow up hematoma pain to back no overt bleeding Physical Exam Vital Signs: Vital Signs: Last Vital Signs Temp 97 F 08/21/21 08:00 Pulse 83 08/21/21 08:00 Resp 18 08/21/21 08:00 BP 120/59 L 08/21/21 08:00 Pulse Ox 99 08/21/21 08:00 Body Mass Index 54.5 Appearing in no acute distress lung sounds are clear to auscultation heart regular rate rhythm, clear S1, S2 positive bowel sounds, abdomen is soft, nontender neuro patient is alert x3, no focal deficits ecchymoses to abdomen, chest and right glute improving, still some hardened areas Objective Data Current Medications Acetaminophen (Acetaminophen 325 Mg Tablet) 650 mg PO Q6H PRN PRN Reason: Pain, Mild (Pain Scale 1-3) Last Admin: 08/21/21 10:36 Dose: 650 mg Documented by: Furosemide (Furosemide 20 Mg Tablet) 20 mg PO DAILY [facility]; Protocol Last Admin: 08/21/21 09:05 Dose: 20 mg Documented by: Hydromorphone HCl (Hydromorphone Hcl 1 Mg/Ml Syringe) 1 mg IVPUSH Q3H PRN; Protocol PRN Reason: Pain, Severe (Pain Scale 7-10) Last Admin: 08/21/21 04:58 Dose: 1 mg Documented by: Multivitamins/Vitamin C (Multivitamin Tablet) 1 tab PO DAILY [facility] Last Admin: 08/21/21 09:05 Dose: 1 tab Documented by: Ondansetron HCl (Ondansetron Hcl 4 Mg/2 Ml Vial) 4 mg IVPUSH Q8H PRN PRN Reason: Nausea and Vomiting Last Admin: 08/20/21 06:28 Dose: 4 mg Documented by: Oxycodone HCl (Oxycodone Hcl Immed Release 5 Mg Tablet) 10 mg PO Q4H PRN PRN Reason: pain Last Admin: 08/21/21 10:36 Dose: 10 mg Documented by: Potassium Chloride (Potassium Chloride Er 10 Meq Capsule.Er) 20 meq PO DAILY [facility] Last Admin: 08/21/21 09:05 Dose: 20 meq Documented by: Sodium Chloride (0.9 % Sodium Chloride Flush 3 Ml Syringe) 3 ml IVFLUSH QSHIFT [facility] Last Admin: 08/21/21 09:05 Dose: 3 ml Documented by: Labs CBC & Chem 7: 08/21/21 05:56 08/20/21 06:04 Labs: Laboratory Results - last 24 hr 08/19/21 08/21/21 05:51 05:56 MCV 102.5 H MCH 33.8 H MCHC 32.9 RDW 18.9 H Plt Count 53 L MPV 9.9 Absolute Nucleated RBC 0.000 Nucleated RBC % (auto) 0.0 Smear Path Review SEE NOTE Quality Stroke Does the patient have a stroke diagnosis?: No VTE Prior VTE?: No VTE Risk Level:: Medical - moderate - high VTE Device Contraindication: N/A - Device Ordered VTE Drug Contraindication: Treatment Not Indicated
[2021-08-21] MEDS: ondansetron HCL 4 MG/2 ML VIAL IVPUSH (13:48)
--- NOTE | 2021-08-21 14:44 | MHC.CLN ---
NUTRITION PATIENT WITH GASTRIC SLEEVE SURGERY 05/24. STATED TO PROVIDER THAT DID NOT WANT BARIATRIC DIET. VISITED WITH PATIENT TO DISCUSS DIET. DIET= 2 GRAM SODIUM. NO SUPPLEMENTS. STATED THAT HE KNOWS TO EAT SMALLER PORTIONS PATIENT AGREES WITH CURRENT DIET.
[2021-08-21 15:18] VITALS: BP 131/60; PULSE 70; RESP 18; TEMP 36.3; O2SAT 95
[2021-08-21] MEDS: Apixaban 5 MG TABLET PO (19:20)
[2021-08-22] VITALS: BP 102/54; PULSE 86; RESP 18; TEMP 37; O2SAT 96
[2021-08-22] MEDS: HYDROmorphone HCl 1 MG/ML SYRINGE IVPUSH ×2 (01:35→07:55)
[2021-08-22 05:35] LABS: Hematocrit 26.5 % (42-52); Hemoglobin 8.7 g/dl (14.0-18.0); Mean Corpuscular HGB Conc 32.8 g/dl (31.0-36.0); Mean Corpuscular Hemoglobin 33.9 pg (27.0-33.0); Mean Corpuscular Volume 103.1 fL (80-98); Red Blood Count 2.57 X10*6/uL (4.60-5.80); Red Cell Distribution Width 18.9 % (11.0-16.0)
[2021-08-22 05:38] LABS: Platelet Count 70 X10*3/uL (160-400)
[2021-08-22 07:52] VITALS: BP 126/56; PULSE 81; RESP 20; TEMP 36.2; O2SAT 99
[2021-08-22] MEDS: Multivitamin TABLET 1 TAB PO (07:56)
[2021-08-22] MEDS: Furosemide 20 MG TABLET PO (07:56)
[2021-08-22] MEDS: 0.9 % Sodium Chloride Flush 3 ML SYRINGE IVFLUSH ×3 (07:56→23:51)
[2021-08-22] MEDS: Apixaban 5 MG TABLET PO ×2 (07:56→19:09)
[2021-08-22 08:19] LABS: Alanine Aminotransferase 17 U/L (0-40); Albumin Level 2.6 g/dL (3.5-5.0); Alkaline Phosphatase 69 U/L (39-117); Anion Gap 12 (12-20); Aspartate Amino Transferase 41 U/L (5-37); Bilirubin Total 2.3 mg/dL (0.0-1.0); Blood Urea Nitrogen 13 mg/dL (9-16); Calcium 8.4 mg/dL (8.4-10.2); Carbon Dioxide 27 mmol/L (22-29); Chloride 104 mmol/L (96-108); Creatinine Clr Calc Pharmacy 164.2; Estimated Glomerular Filt Rate > 60; Glucose Random 94 mg/dL (60-115); Sodium 139 mmol/L (135-145); Total Protein 5.5 g/dL (6.5-8.0)
--- NOTE | 2021-08-22 09:20 | PM.DS ---
DS: Providers Provider Date of Service: 08/23/21 <Kashif Alvarado MD - Last Filed: 08/23/21 10:21> Date of admission: 08/18/21 09:15 <Sena Martinez NP - Last Filed: 08/22/21 11:45> Primary care physician: Unknown Physician <Sena Martinez NP - Last Filed: 08/22/21 11:45> Consults: 08/18/21 09:20 Consult to General Surgery Routine Consulting Provider: Wood Fernández Reason for consultation: Large gluteal hematoma 08/18/21 09:26 Consult to Hematology / Oncology Routine Consulting Provider: [facility] [place] Reason for consultation: gluteal hematoma, portan vein thrombosis <Sena Martinez NP - Last Filed: 08/22/21 11:45> Attending physician on discharge: Kashif Alvarado <Sena Martinez NP - Last Filed: 08/22/21 11:45> Discharging clinician: Kashif Alvarado <Kashif Alvarado MD - Last Filed: 08/23/21 10:21> DS: Diagnosis Discharge Diagnosis (1) Acute blood loss anemia: Status: Acute <Sena Martinez NP - Last Filed: 08/22/21 11:45> (2) Nontraumatic hematoma of muscle: Status: Acute <Sena Martinez NP - Last Filed: 08/22/21 11:45> (3) Hematoma of abdominal wall: Status: Acute <Sena Martinez NP - Last Filed: 08/22/21 11:45> (4) Liver cirrhosis secondary to MCCOY: (5) Portal vein thrombosis: DS: Summary Hospital Course Hospital Course: HP as per admitting provider This is a 41-year-old male with a past medical history of cirrhosis secondary to MCCOY, morbid obesity status post nadir breaths copy sleeve gastrectomy in May 2021, history of portal vein thrombosis on Lovenox, history of congestive heart failure on Lasix, history of diabetes which is now diet controlled who presents to the hospital complaints of right gluteal pain tingling and numbness which began acutely the evening prior to arrival.? Patient reports that he was in his usual state of health and in fact had just completed an 8 hour shift at work.? He reports that he came home and ultimately when he went to bed he felt pain in that region which he thought was a cramp.? He reports that he tried to walk around to see if that would relieve his symptoms but the pain continued to get worse and so he presented to the emergency room. He denies any trauma to the region. Upon arrival to the emergency room he underwent workup including a CT scan of the abdomen and pelvis which showed a large 12 cm gluteal hematoma.? His known prior portal vein thrombosis had improved.? The case was discussed by the ED provider with Hematology who recommended admission for closer monitoring . Patient was admitted for management of his multiple hematomas, including right gluteal muscle. He had frequent monitoring of his H&H and obviously his anticoagulation was held. He was seen in consultation by both general surgery as well as Hematology. Patient's hemoglobin did drop initially but subsequently stabilized with a value greater than 8. He was treated with intravenous and oral pain control. Ultimately he was restarted on Eliquis per Hematology recommendations. He was further observed in the hospital post starting Eliquis and his H&H remained stable. He will be discharged home and have repeat blood work in 3-4 days from discharge. He needs to see his primary care doctor prior to resumption of work which he has been informed of. <Sena Martinez NP - Last Filed: 08/22/21 11:45> Time Spent with Patient Time attestation: Total time spent providing and/or coordinating discharge services: <Sena Martinez NP - Last Filed: 08/22/21 11:45> Discharge coordination time: Greater than 30 minutes <Kashif Alvarado MD - Last Filed: 08/23/21 10:21> Quality: Stroke Does the patient have a stroke diagnosis?: No <Kashif Alvarado MD - Last Filed: 08/23/21 10:21> Physical Exam Vital Signs: Vital Signs: Last Vital Signs Temp 97.1 F 08/22/21 07:52 Pulse 81 08/22/21 07:52 Resp 20 08/22/21 07:52 BP 126/56 L 08/22/21 07:52 Pulse Ox 99 08/22/21 07:52 Body Mass Index 54.5 <Sena Martinez NP - Last Filed: 08/22/21 11:45> Appearing in no acute distress head is normocephalic atraumatic eyes pupils are PERRLA sclera is anicteric mouth throat mucous membranes are intact and moist neck is supple no lymphadenopathy, no JVD noted lung sounds are clear to auscultation heart regular rate rhythm, clear S1, S2 positive bowel sounds, abdomen is soft, nontender neuro patient is alert x3, no focal deficits <Sena Martinez NP - Last Filed: 08/22/21 11:45> Const: Other: General - no acute distress, appears comfortable Cardiovascular - regular rate and rhythm, S1-S2 Lungs - normal respiratory effort, clear to auscultation bilaterally, no wheezing Abdomen - soft, nontender, no rebound or guarding Extremities - no edema bilaterally Neuro - awake and alert, no focal deficits Skin - significant improvement in the indurated area of the R buttock region, no new areas of ecchymosis seen <Kashif Alvarado MD - Last Filed: 08/23/21 10:21> DS: Data Data Completed and Pending Completed studies during hospitalization [Text1]: Procedures Excision of Stomach, Percutaneous Endoscopic Approach, Vertical (05/10/21) Repair Diaphragm, Percutaneous Endoscopic Approach (05/10/21) <Sena Martinez NP - Last Filed: 08/22/21 11:45> Labs on day of discharge: Laboratory Results - last 24 hr 08/19/21 08/22/21 08/22/21 05:51 05:14 05:14 WBC 3.0 L RBC 2.57 L Hgb 8.7 L Hct 26.5 L MCV 103.1 H MCH 33.9 H MCHC 32.8 RDW 18.9 H Plt Count 70 L D MPV 10.0 Absolute Nucleated RBC 0.000 Nucleated RBC % (auto) 0.0 Smear Path Review SEE NOTE Sodium 139 Potassium 4.0 D Chloride 104 Carbon Dioxide 27 Anion Gap 12 BUN 13 Creatinine 0.98 Estim Creat Clear Calc 164.2 Estimated GFR > 60 Random Glucose 94 Calcium 8.4 Total Bilirubin 2.3 H Direct Bilirubin 1.0 H AST 41 H ALT 17 Alkaline Phosphatase 69 Total Protein 5.5 L Albumin 2.6 L <Sena Martinez NP - Last Filed: 08/22/21 11:45> Discharge Plan Discharge Patient Disposition: Home, Self-Care <Sena Martinez NP - Last Filed: 08/22/21 11:45> Discharge Diagnosis: Abdominal and gluteal hematoma <Sena Martinez NP - Last Filed: 08/22/21 11:45> Abdominal and gluteal hematoma <Kashif Alvarado MD - Last Filed: 08/23/21 10:21> Referrals: Juan A Osorio MD [Physician] - 1 Week (Your doctor's office should call you to schedule a follow up appointment.) John Weston MD [Physician] - 1 Week <Sena Martinez NP - Last Filed: 08/22/21 11:45> Discharge Medications: New Eliquis 5 mg Tablet 5 mg PO BID Qty: 60 RF: 0 oxycodone 10 mg tablet 10 mg PO Q6H PRN (Reason: pain) Qty: 12 RF: 0 Continued ondansetron HCl [Zofran] 4 mg tablet 4 mg PO Q8H PRN (Reason: nausea and vomiting) 7 Days Qty: 14 RF: 0 potassium chloride 10 mEq tablet extended release 20 meq PO DAILY RF: 0 furosemide [Lasix] 20 mg tablet 20 mg PO QAM 60 Days Qty: 60 RF: 3 inulin 2.5 gram tablet,chewable 5 g PO .dialy RF: 0 Bariatric Multivitamins 45 mg iron- 800 mcg-120 mcg capsule 45 cap PO DAILY RF: 0 Discontinued enoxaparin [Lovenox] 100 mg/mL syringe 190 mg subcut Q12H RF: 0 <Sena Martinez NP - Last Filed: 08/22/21 11:45> Discharge Orders: Discharge Order (Routine); Ordered 08/23/21 Ordered By: Kashif Alvarado <Sena Martinez NP - Last Filed: 08/22/21 11:45> Diet: advance to usual diet <Sena Martinez NP - Last Filed: 08/22/21 11:45> advance to usual diet <Kashif Alvarado MD - Last Filed: 08/23/21 10:21> Activity on Discharge: As tolerated <Sena Martinez NP - Last Filed: 08/22/21 11:45> As tolerated <Kashif Alvarado MD - Last Filed: 08/23/21 10:21> Stand Alone Forms: Patient Portal Discharge page, Work/School Release <Sena Martinez NP - Last Filed: 08/22/21 11:45> Other Ambulatory Orders: Complete Blood Count no Diff (Routine) Timeframe: [id number] Facility: [facility] - Location: Laboratory Ordered By: Kashif Alvarado <Sena Martinez NP - Last Filed: 08/22/21 11:45> Care Plan Goals: resolution of areas of hematoma <Sena Martinez NP - Last Filed: 08/22/21 11:45> Health Concerns: Abdominal and gluteal hematoma <Sena Martinez NP - Last Filed: 08/22/21 11:45> Plan of Treatment: You have been started on Eliquis 5 mg twice daily 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
--- NOTE | 2021-08-22 11:13 | PM.PNGS ---
Subjective Subjective Date of Service: 08/22/21 Interval history: Patient says he feels very tired Still with pain on the hematoma site Pain relief with Dilaudid Physical Exam Vital Signs: Vital Signs: Last Vital Signs Temp 97.1 F 08/22/21 07:52 Pulse 81 08/22/21 07:52 Resp 20 08/22/21 07:52 BP 126/56 L 08/22/21 07:52 Pulse Ox 99 08/22/21 07:52 Body Mass Index 54.5 Const: Other: Chemistry 08/20/21 08/22/21 06:04 05:14 Sodium 138 139 Potassium 3.3 4.0 D Carbon Dioxide 25 27 BUN 13 13 Creatinine 0.87 0.98 Calcium 8.3 L 8.4 Hematology 08/20/21 08/21/21 08/22/21 06:04 05:56 05:14 WBC 2.6 L 2.2 L 3.0 L Hgb 8.2 L 8.1 L 8.7 L Plt Count 59 L 53 L 70 L D General: no acute distress Nutritional Appearance: obese Resp: Effort & Inspection: normal respiratory effort Cardio: Rate: regular rate GI: Other: Obese, soft, ecchymosis on a anterior abdominal wall Back/Spine/Pelvis: Other: Ecchymotic area just above the buttock on the right, tender, not worsening compared to yesterday, does not appear to be expanding Procedures Date of Service Date of Service: 08/22/21 Progress Note: A&P Assessment and plan (1) Nontraumatic hematoma of muscle: Status: Acute Assessment and Plan: Hematoma has been stable Hemoglobin up Pain management Anticoagulation restarted The rest of management as per hospitalist service Patient noted to have multiple medical problems Fall Risk Details Current Medications: Current Medications Acetaminophen (Acetaminophen 325 Mg Tablet) 650 mg PO Q6H PRN PRN Reason: Pain, Mild (Pain Scale 1-3) Last Admin: 08/21/21 10:36 Dose: 650 mg Documented by: Apixaban (Apixaban 5 Mg Tablet) 5 mg PO BID [facility] Last Admin: 08/22/21 07:56 Dose: 5 mg Documented by: Furosemide (Furosemide 20 Mg Tablet) 20 mg PO DAILY [facility]; Protocol Last Admin: 08/22/21 07:56 Dose: 20 mg Documented by: Hydromorphone HCl (Hydromorphone Hcl 1 Mg/Ml Syringe) 1 mg IVPUSH Q3H PRN; Protocol PRN Reason: Pain, Severe (Pain Scale 7-10) Last Admin: 08/22/21 07:55 Dose: 1 mg Documented by: Multivitamins/Vitamin C (Multivitamin Tablet) 1 tab PO DAILY [facility] Last Admin: 08/22/21 07:56 Dose: 1 tab Documented by: Ondansetron HCl (Ondansetron Hcl 4 Mg/2 Ml Vial) 4 mg IVPUSH Q8H PRN PRN Reason: Nausea and Vomiting Last Admin: 08/21/21 13:48 Dose: 4 mg Documented by: Oxycodone HCl (Oxycodone Hcl Immed Release 5 Mg Tablet) 10 mg PO Q4H PRN PRN Reason: pain Last Admin: 08/21/21 10:36 Dose: 10 mg Documented by: Potassium Chloride (Potassium Chloride Er 10 Meq Capsule.Er) 20 meq PO DAILY [facility] Last Admin: 08/22/21 07:56 Dose: 20 meq Documented by: Sodium Chloride (0.9 % Sodium Chloride Flush 3 Ml Syringe) 3 ml IVFLUSH QSHIFT [facility] Last Admin: 08/22/21 07:56 Dose: 3 ml Documented by: Time Spent With Patient Time: Total time spent is greater than 50% in coordination of care (as documented) at patient's floor/unit and/or counseling patient: Time with patient: 15 - 24 minutes Quality Stroke Does the patient have a stroke diagnosis?: No VTE Prior VTE?: No VTE Risk Level:: Medical - moderate - high VTE Device Contraindication: N/A - Device Ordered VTE Drug Contraindication: Treatment Not Indicated
--- NOTE | 2021-08-22 11:45 | P.PNIM_ITS ---
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 He is diagnosed with large gluteal hematoma. R gluteal hemtoma, spontaneous/atraumatic Suspected abdominal wall hematoma In the setting on anticoagluation use monitor serial H/H, at least 6 hours -- transfuse below 8 or if symptomatic pain control Discussed with Hematology will start Eliquis today Portal/splenic/mesenteric vein thrombosis improved per CT Discussed with Hematology will start Eliquis today Morbid obesity - s/p LSG Patient insisting on having a regular diet as he stated that he is past the bariatric diet stage outpatient f/u with Bariatric clinic DM previously on oral meds -- last A1C is 4.8; now diet controlled MCCOY cirrhosis baseline bili around 2 trend and involve GI if worsens continue baseline meds History of CHF, unspecified continue lasix HypoK replete with oral DISPO Home tomorrow if medically stable Full Code DVT pptx Eliquis Due to the patients recent VTE and now large hematoma -- he will require inpatient level of care due to frequent monitoring of H/H as well as determining the time of resumption of anticoagulation. Attending Dr. Alvarado Subjective Subjective Date of Service: 08/22/21 Review of Systems Follow up hematoma pain to back no overt bleeding Physical Exam Vital Signs: Vital Signs: Last Vital Signs Temp 97.1 F 08/22/21 07:52 Pulse 81 08/22/21 07:52 Resp 20 08/22/21 07:52 BP 126/56 L 08/22/21 07:52 Pulse Ox 99 08/22/21 07:52 Body Mass Index 54.5 Appearing in no acute distress lung sounds are clear to auscultation heart regular rate rhythm, clear S1, S2 positive bowel sounds, abdomen is soft, nontender neuro patient is alert x3, no focal deficits ecchymoses to abdomen, chest and right glute improving, still some hardened areas ? Objective Data Current Medications Acetaminophen (Acetaminophen 325 Mg Tablet) 650 mg PO Q6H PRN PRN Reason: Pain, Mild (Pain Scale 1-3) Last Admin: 08/21/21 10:36 Dose: 650 mg Documented by: Apixaban (Apixaban 5 Mg Tablet) 5 mg PO BID [facility] Last Admin: 08/22/21 07:56 Dose: 5 mg Documented by: Furosemide (Furosemide 20 Mg Tablet) 20 mg PO DAILY [facility]; Protocol Last Admin: 08/22/21 07:56 Dose: 20 mg Documented by: Hydromorphone HCl (Hydromorphone Hcl 1 Mg/Ml Syringe) 1 mg IVPUSH Q3H PRN; Protocol PRN Reason: Pain, Severe (Pain Scale 7-10) Last Admin: 08/22/21 07:55 Dose: 1 mg Documented by: Multivitamins/Vitamin C (Multivitamin Tablet) 1 tab PO DAILY [facility] Last Admin: 08/22/21 07:56 Dose: 1 tab Documented by: Ondansetron HCl (Ondansetron Hcl 4 Mg/2 Ml Vial) 4 mg IVPUSH Q8H PRN PRN Reason: Nausea and Vomiting Last Admin: 08/21/21 13:48 Dose: 4 mg Documented by: Oxycodone HCl (Oxycodone Hcl Immed Release 5 Mg Tablet) 10 mg PO Q4H PRN PRN Reason: pain Last Admin: 08/21/21 10:36 Dose: 10 mg Documented by: Potassium Chloride (Potassium Chloride Er 10 Meq Capsule.Er) 20 meq PO DAILY [facility] Last Admin: 08/22/21 07:56 Dose: 20 meq Documented by: Sodium Chloride (0.9 % Sodium Chloride Flush 3 Ml Syringe) 3 ml IVFLUSH QSHIFT [facility] Last Admin: 08/22/21 07:56 Dose: 3 ml Documented by: Labs CBC & Chem 7: 08/22/21 05:14 08/22/21 05:14 Labs: Laboratory Results - last 24 hr 08/22/21 08/22/21 05:14 05:14 MCV 103.1 H MCH 33.9 H MCHC 32.8 RDW 18.9 H Plt Count 70 L D MPV 10.0 Absolute Nucleated RBC 0.000 Nucleated RBC % (auto) 0.0 Anion Gap 12 Estim Creat Clear Calc 164.2 Estimated GFR > 60 Random Glucose 94 Calcium 8.4 Total Bilirubin 2.3 H Direct Bilirubin 1.0 H AST 41 H ALT 17 Alkaline Phosphatase 69 Total Protein 5.5 L Albumin 2.6 L Quality Stroke Does the patient have a stroke diagnosis?: No VTE Prior VTE?: No VTE Risk Level:: Medical - moderate - high VTE Device Contraindication: N/A - Device Ordered VTE Drug Contraindication: Treatment Not Indicated
[2021-08-22] MEDS: ondansetron HCL 4 MG/2 ML VIAL IVPUSH (12:47)
[2021-08-22] MEDS: oxyCODONE HCl Immed Release 5 MG TABLET 10 MG PO ×3 (14:55→23:50)
[2021-08-22 15:14] VITALS: BP 118/59; PULSE 88; RESP 18; TEMP 36.8; O2SAT 100
[2021-08-22 23:53] VITALS: BP 127/66; PULSE 76; RESP 17; TEMP 36.6; O2SAT 99
[2021-08-23 07:47] VITALS: BP 142/53; PULSE 74; RESP 16; TEMP 36.3; O2SAT 98
[2021-08-23] MEDS: Apixaban 5 MG TABLET PO (07:50)
[2021-08-23] MEDS: Furosemide 20 MG TABLET PO (07:50)
[2021-08-23] MEDS: Multivitamin TABLET 1 TAB PO (07:51)
[2021-08-23] MEDS: 0.9 % Sodium Chloride Flush 3 ML SYRINGE IVFLUSH (07:51)
[2021-08-23] MEDS: oxyCODONE HCl Immed Release 5 MG TABLET 10 MG PO (07:56)
--- NOTE | 2021-08-23 10:18 | MHC.CM.PN ---
PT DISCHARGING HOME SELF-CARE AND DIRECTIONS TO FOLLOW-UP W/[facility] IN 1 WEEK, PARENTS FOR TRANSPORT
== END 2021-08-23 10:56 | disposition home or self-care (01) | DRG 661 ==
LOC: HO.ED 09:31 → HO.EDOVER 09:33 → HO.S3 08-19 13:23
PROVIDERS: Internal Medicine Medical Oncology; Nurse Practitioner Acute Care; Admitting Provider Family Medicine; Emergency Provider Student in an Organized Health Care Education/Training Program; PCP Internal Medicine; Visit Provider Family Medicine
DX: D68.32 Hemorrhagic disorder due to extrinsic circulating anticoagulants (principal); I81 Portal vein thrombosis; D61.818 Other pancytopenia; I50.9 Heart failure, unspecified; E66.01 Morbid (severe) obesity due to excess calories; D62 Acute posthemorrhagic anemia; K74.60 Unspecified cirrhosis of liver; M79.81 Nontraumatic hematoma of soft tissue; T45.515A Adverse effect of anticoagulants, initial encounter; Y92.9 Unspecified place or not applicable; K75.81 Nonalcoholic steatohepatitis (NASH); Z20.822 Contact with and (suspected) exposure to COVID-19; Z68.43 Body mass index [BMI] 50.0-59.9, adult; Z98.84 Bariatric surgery status; E11.9 Type 2 diabetes mellitus without complications; E87.6 Hypokalemia; Z79.4 Long term (current) use of insulin; Z79.01 Long term (current) use of anticoagulants; Z79.899 Other long term (current) drug therapy
CPT/HCPCS: 36415; 74177; 80048; 80053; 80076; 85025; 85027; 85384; 85610; 85730; 86850; 86900; 86901; 86923; 87635; 96374; 96375; 96376; 99204; 99285; J1170; J2405; J3010; Q9967

== ENCOUNTER → 2021-08-28 08:23 | Outpatient (BNVA) | payer OTHER, SELFPAY | PROVIDERS: PCP Internal Medicine; Referring Provider Internal Medicine; Visit Provider Physician Assistant Surgical | DX: E66.01 Morbid (severe) obesity due to excess calories (principal); I81 Portal vein thrombosis; M79.81 Nontraumatic hematoma of soft tissue; R06.02 Shortness of breath; Z68.43 Body mass index [BMI] 50.0-59.9, adult | CPT/HCPCS: 99212 ==

== ENCOUNTER 2021-09-01 11:17 | Emergency (ER) | payer OTHER, SELFPAY ==
--- NOTE | ~2021-09-01 | CT_ITS ---
EXAMINATION: CT ANGIOGRAM OF THE CHEST WITH AND WITHOUT CONTRAST (CT PULMONARY ANGIOGRAM FOR PE) CLINICAL INFORMATION: Reason for Exam sob COMPARISON: Chest radiographs 06/03/2020; CT abdomen and pelvis with contrast 08/18/2021 TECHNIQUE: Prior to contrast administration, noncontrast localization images were obtained. Subsequently, multidetector volumetric imaging was performed from the thoracic inlet to below the diaphragms following the administration of 85 mL Omnipaque 350 intravenous contrast. Sagittal, coronal, and MIP oblique sagittal reformatted images were obtained on the CT workstation, uploaded to PACS, and reviewed. CT abdomen and pelvis also performed and described in separate report. This CT examination was performed using dose optimization techniques as appropriate, variously including the following: *Automated exposure control *Adjustment of mA and/or kV according to patient size (this includes techniques or standardized protocols for targeted exams where dose is matched to indication/reason for exam; i.e. extremities or head) *Use of iterative reconstruction technique Total exam dose-length product 630 mGy-cm FINDINGS: QUALITY OF STUDY/CONTRAST BOLUS: Suboptimal. PULMONARY ARTERIES: No central or segmental pulmonary emboli. THORACIC AORTA: No aneurysm or dissection. LUNG: There is no lobar or segmental airspace consolidation or groundglass opacities. No mass or significant nodule. There are numerous bilateral small calcified granulomata, over 15 on each side, largest on right 0.8 cm. PLEURA: No pleural effusion or pneumothorax. MEDIASTINUM: Normal heart size. No pericardial effusion. No hilar or mediastinal lymphadenopathy. No evidence of septal bowing or right heart strain. CHEST WALL/AXILLA: There are several subcutaneous masses upper right chest, largest just under 3 cm and low attenuation. Numerous similar appearing masses are again noted in the upper and mid abdominal subcutaneous space and also noted on prior abdominal CT, suspected subcutaneous hematomas. There is no axillary or supraclavicular adenopathy. OSSEOUS STRUCTURES: No acute or suspicious osseous abnormality. UPPER ABDOMEN: No reflux of contrast into the hepatic veins to suggest elevated right heart pressures. CT abdomen and pelvis is described in separate report. CT/CT angio chest PE protocol IMPRESSION: 1. No visible central or segmental pulmonary embolism. No thoracic aortic dissection. 2. Numerous bilateral calcified granulomata. No airspace consolidation or effusion. 3. Subcutaneous masses upper right chest similar to prior CT subcutaneous masses anterior abdomen, suspect small hematomas. 4. CT abdomen and pelvis described in separate report. VTE: negative
--- NOTE | ~2021-09-01 | CT_ITS ---
EXAMINATION: CT ABDOMEN AND PELVIS WITH CONTRAST CLINICAL INFORMATION: Abdominal pain and vomiting COMPARISON: Previous CT of the abdomen and pelvis most recent August 18, 2021 TECHNIQUE: Multidetector volumetric images were obtained from the superior aspect of the liver through the pubic symphysis following administration 85 mL of Omnipaque 350 intravenous contrast. Sagittal and coronal reformatted images were obtained on the technologist's workstation. Oral contrast: No This CT examination was performed using dose optimization techniques as appropriate, variously including the following: *Automated exposure control *Adjustment of mA and/or kV according to patient size (this includes techniques or standardized protocols for targeted exams where dose is matched to indication/reason for exam; i.e. extremities or head) *Use of iterative reconstruction technique DLP: 1438 mGy-cm FINDINGS: LUNG BASES: There are small calcified pulmonary nodules probably representing calcified granulomas. The largest measures 4 mm in the right lower lobe axial image 122 series 17. LIVER, GALLBLADDER, AND BILIARY TREE: The liver appears cirrhotic. No focal liver lesion is seen. The gallbladder is normal. There is no biliary duct dilatation. PANCREAS: Unremarkable. SPLEEN: The spleen is enlarged and measures 16.7 cm in length. ADRENAL GLANDS: There is a 3.7 x 3 cm fatty lesion in the left adrenal gland suggestive of a myelolipoma. KIDNEYS AND URETERS: The right kidney is atrophic. The left kidney is normal appearing. BLADDER: Unremarkable. GASTROINTESTINAL TRACT: There is diverticulosis of the colon. No evidence of diverticulitis is seen. The small and large bowel is otherwise unremarkable. There are postoperative changes from gastric sleeve procedure. The appendix is unremarkable. ABDOMINAL WALL: There are multiple subcutaneous nodules in the anterior abdominal wall, question related to subcutaneous injection sites. Clinical correlation recommended. Right gluteal muscle hematoma appears decreased in size now measuring 4 x 11 cm in AP and transverse dimension. The largest measures approximately 3.5 x 7 cm. No significant hernia is seen. LYMPH NODES: Normal. VASCULAR: There are multiple varices. May be a spontaneous splenorenal shunt. There is a filling defect/thrombus seen in the splenoportal confluence/distal splenic vein and main portal vein. The SMV is patent. Clot burden appears similar to most recent exam 08/18/2020.. There is stranding of the small bowel mesentery or edema. This appears similar to most recent exam as well. PELVIC VISCERA: Unremarkable. OSSEOUS STRUCTURES: There are degenerative changes of the spine and hip joints. CT/CT abdomen pelvis w con IMPRESSION: Stable thrombus in the main portal vein and portal splenic confluence from previous exam. Stable edema or soft tissue stranding of the small bowel mesentery likely related to venous congestion. Cirrhosis and splenomegaly and varices. Atrophic right kidney. Stable left adrenal myelolipoma. Postoperative changes following gastric bypass. Diverticulosis. Interval decrease in right gluteal muscle hematoma. Multiple subcutaneous nodules in the anterior abdominal wall probably related to subcutaneous injection sites. Clinical correlation recommended.
[2021-09-01 11:31] VITALS: BP 135/62; PULSE 67; RESP 20; TEMP 35.5; O2SAT 99; BMI 54.2
--- NOTE | 2021-09-01 11:44 | ECG_ITS ---
Test Reason : ABD PAIN Blood Pressure : / mmHG Vent. Rate : 060 BPM Atrial Rate : 060 BPM P-R Int : 172 ms QRS Dur : 104 ms QT Int : 432 ms P-R-T Axes : -10 030 018 degrees QTc Int : 432 ms Normal sinus rhythm Normal ECG When compared with ECG of 16-JUL-2021 17:12, No significant change was found Referred By: Alesha Fields Electronically Signed By:TASHA MUSTAFA MD
--- NOTE | 2021-09-01 12:13 | ED.GENADULT ---
HPI - General Adult General Chief complaint: General Medical Stated complaint: abd pain, s/p gastric bypass Time Seen by Provider: 09/01/21 11:35 Source: patient Mode of arrival: ambulatory Limitations: no limitations History of Present Illness HPI narrative: This is a 41-year-old male who had a gastric sleeve done by Dr. Ovalles and May of 2021. His postoperative course was complicated by portal vein thrombosis and he was subsequently placed on Lovenox until he suffered several large hematomas and this was discontinued. He was transitioned to Eliquis 5 mg twice a day about 1 week ago. He did miss anticoagulation for approximately 48 hours but otherwise has been compliant with taking his medication daily. He tells me that he has had intermittent abdominal pain since his surgery with vomiting. Over the last 24 hours his pain has been worsened but is diffuse. He has had 6 episodes of vomiting the last 24 hours. He denies any diarrhea or constipation. His last BM was yesterday and normal. He also reports some shortness of breath which he has noticed over the last few days with exertion in addition to a dry infrequent cough. No chest pain, leg swelling or pain. No fevers or chills. Related Data Home Medications Medication Instructions Recorded Confirmed [id number] 45 mg-folic 45 cap PO DAILY 05/25/21 08/25/21 acid 800 mcg-vit K 120 mcg capsule (Bariatric Multivitamins) inulin 2.5 gram chewable tablet 5 g PO .dialy tab 08/01/21 08/25/21 potassium chloride 10 mEq 20 meq PO DAILY 08/18/21 08/25/21 tablet,extended release Previous Rx's Medication Instructions Recorded furosemide 20 mg tablet (Lasix) 20 mg PO QAM 60 Days #60 tab 07/05/21 ondansetron HCl 4 mg tablet 4 mg PO Q8H PRN 7 Days #14 tab 08/07/21 (Zofran) apixaban 5 mg tablet (Eliquis) 5 mg PO BID #60 tab 08/22/21 oxycodone 10 mg tablet 10 mg PO Q6H PRN #12 tab 08/22/21 ondansetron 4 mg disintegrating 4 mg PO Q6H PRN #10 tab 09/01/21 tablet Allergies Allergy/AdvReac Type Severity Reaction Status Date / Time No Known Allergies Allergy Verified 08/28/21 08:36 Review of Systems Review of Systems: Yes all other systems are reviewed and are negative Constitutional: Constitutional: Reports no additional constitutional complaints, Denies body ache(s), Denies chills, Denies fever(s), Denies headache(s) and Denies weakness Eyes: Eyes: Reports no additional eye complaints and Denies change in vision ENT: Reports system reviewed and no additional complaints, except as documented, Denies dizziness, Denies headache(s), Denies nasal congestion, Denies nasal discharge and Denies neck pain Cardiovascular: Cardiovascular: Reports no additional cardiovascular complaints, Denies chest pain, Denies leg edema and Reports dyspnea Respiratory: Respiratory: Reports no additional respiratory complaints, Reports cough and Reports dyspnea Gastrointestinal: Gastrointestinal: Reports no additional gastrointestinal complaints, Reports abdominal pain, Denies diarrhea, Reports nausea and Reports vomiting Genitourinary: Genitourinary: Denies urinary incontinence Musculoskeletal: Musculoskeletal: Reports no additional musculoskeletal complaints, Denies back pain, Denies arthralgias, Denies joint swelling, Denies neck pain, Denies numbness and Denies tingling Integumentary/Breasts: Skin/Breast: Reports system reviewed and no additional complaints, except as docu and Denies rash Neurologic: Reports system reviewed and no additional complaints, except as documented, Denies Abnormal speech present, Denies dizziness, Denies headache(s), Denies numbness, Denies tingling and Denies weakness PMFSH Past Medical History Attestation statement: The following information was validated with the patient. Source: old records reviewed and nursing notes reviewed Medical History BMI 60.0-69.9, adult Cellulitis Cirrhosis of liver without ascites Congestive heart failure COVID-19 vaccine series completed Diabetes 1.5, managed as type 2 Essential hypertension Hiatal hernia HTN (hypertension) Hypertension, essential Hypokalemia Liver cirrhosis secondary to [place] Major depression, single episode Moderate major depression, single episode Morbid obesity Morbid obesity with BMI of 60.0-69.9, adult Pancytopenia Personal history of COVID-19 Portal vein thrombosis Preoperative examination Shortness of breath Super obesity Trauma left hip Type 2 diabetes mellitus UTI (urinary tract infection) Vitamin A deficiency Vitamin B1 deficiency Surgical History H/O discectomy History of repair of hiatal hernia S/P laparoscopic sleeve gastrectomy Family History Family History Father Type 2 diabetes mellitus Heart disease Kidney failure Mother Obesity (BMI 30-39.9) Hypertension Brother No problems noted. Brother No problems noted. Other Mental health disorder Substance use disorder Social History Social History Household Members: Family Household Members Other:: parents Housing: Apartment Are you a primary child day care provider to a significant other at home: No Do you presently have visiting nurse or other home services: No Alcohol intake: never Patient Tobacco Use Status: Never used Tobacco Use of substances other than those prescribed or required for medical reasons: No Advance Directives: No Advance Directives Information Provided: Yes service: No Current occupational status: unemployed Physical Exam Vital Signs: Vital Signs: Last Vital Signs Temp 95.9 F L 09/01/21 11:31 Pulse 75 09/01/21 15:51 Resp 18 09/01/21 15:51 BP 171/72 H 09/01/21 15:51 Pulse Ox 100 09/01/21 15:51 Body Mass Index 54.2 Const: General: cooperative, healthy appearing, comfortable and no acute distress Orientation/consciousness: patient oriented x3 Limitations: no limitations HENMT: Head: Yes normal to inspection Ears: hearing grossly normal bilaterally General nose exam: Normal external nose present Face and sinus: Yes normal facial exam Mouth: Normal oral and palatal mucosa present Throat: Yes posterior oropharynx normal Eyes: General: appearance normal, both eyes and all related structures Pupils: Equal, round and reactive pupils present Neck: Neck: Yes normal visual inspection Chest: Chest palpation & inspection: normal inspection of the chest Resp: Effort & Inspection: normal respiratory effort Auscultation: clear to auscultation bilaterally Cardio: Rate: regular rate Rhythm: regular rhythm Peripheral pulses: Peripheral pulses 2+ throughout GI: Inspection: Yes normal to inspection Palpation (GI): Soft to palpation and Tenderness to palpation present (GI) (Diffusely tender, multiple episodes of ecchymosis with no palpable hematoma) Auscultation: normal bowel sounds Back/Spine/Pelvis: Thoracic/Lumbar Spine: thoracic and lumbar spine normal to inspection Skin: General skin exam: no rashes or lesions noted Neuro: General: patient oriented x3, no focal motor deficits and normal sensation to monofilament Cranial nerves: Yes Equal, round and reactive pupils present Cognition (Neuro): normal cognition Speech: No Abnormal speech present Gait exam (Neuro): Normal gait present Motor exam (neuro): 5/5 motor strength present throughout Extrem: General: Yes normal to inspection, Yes no pedal edema and Yes no calf tenderness Course Course Course Narrative: 41-year-old male with a past medical history of CHF on diuretic, gastric sleeve, subsequent anemia, portal vein thrombosis currently on Eliquis here with complaints of acute on chronic abdominal pain with vomiting over the last 24 hours. Also complain of worsening shortness of breath over the last few days although on review of chart it appears that he does have chronic shortness of breath and cough secondary to underlying CHF. He denies any leg swelling, fevers, chest pain. Been compliant with all his medications. Did miss about 48 hours of Eliquis last week during hospitalization for a hematoma in his anticoagulation was held. Will check labs, UA, CT abdomen and chest, discuss with bariatrics 1700-labs show chronic anemia, actually improved LFTs and albumin from previous. Normal renal function electrolytes. CT scan of abdomen/chest show IMPRESSION: Stable thrombus in the main portal vein and portal splenic confluence from previous exam. Stable edema or soft tissue stranding of the small bowel mesentery likely related to venous congestion. Cirrhosis and splenomegaly and varices. Atrophic right kidney. Stable left adrenal myelolipoma. Postoperative changes following gastric bypass. Diverticulosis. Interval decrease in right gluteal muscle hematoma. Multiple subcutaneous nodules in the anterior abdominal wall probably related to subcutaneous injection sites. Clinical correlation recommended. No PE seen. EKG and troponin are negative. BNP is mildly elevated patient has history of same and does not appear to be clinically fluid overload. He was able to drink 8 oz of viola tonie and eat two crackers with no vomiting episodes. I did speak at length with Ata irizarry from bariatric. He recommended the patient follow a liquid diet for the next 24 hours then advance as tolerated. He tells me the patient should be drinking his protein drinks. Also recommended follow-up in the office this week. The patient may call him this weekend as needed. Okay for p.rtamera Marcum at home Recommended patient continue his daily medications. I reviewed worrisome signs and symptoms of when to return to the emergency department. Comfortable discharge home. Medical Decision Making MDM Narrative Medical decision making narrative: Pulmonary embolism-less likely with negative CT Less likely ACS with normal EKG, negative troponin and atypical symptoms Less likely CHF with no findings consistent with fluid overload in a baseline BNP Medical Records Medical records reviewed: Yes I reviewed the patient's medical records. Lab Data Lab results reviewed: Yes I reviewed the patient's lab results. Result diagrams: 09/01/21 12:16 09/01/21 12:16 Labs: Lab Results 09/01/21 09/01/21 09/01/21 Range/Units 12:16 12:16 12:16 WBC 3.6 L (4.8-10.8) X10*3/uL RBC 3.23 L D (4.60-5.80) X10*6/uL Hgb 10.9 L D (14.0-18.0) g/dl Hct 33.1 L D (42-52) % MCV 102.5 H (80-98) fL MCH 33.7 H (27.0-33.0) pg MCHC 32.9 (31.0-36.0) g/dl RDW 17.1 H (11.0-16.0) % Plt Count 96 L D (160-400) X10*3/uL MPV 9.7 (9.4-12.4) fL Immature Gran % (Auto) 0.3 (0.0-0.4) % Neut % (Auto) 68.7 (45-73) % Lymph % (Auto) 20.9 (20-40) % [place] % (Auto) 8.1 (2-11) % Eos % (Auto) 1.4 (0-4) % Baso % (Auto) 0.6 (0-2) % Lymph # (Auto) 0.8 L (1.2-4.9) X10*3/uL [place] # (Auto) 0.3 (0.1-1.2) X10*3/uL Eos # (Auto) 0.1 (0.0-0.4) X10*3/uL Baso # (Auto) 0.0 (0.0-0.2) X10*3/uL Abs Immat Gran (auto) 0.01 (0.00-0.03) X10*3/uL Absolute Neuts (auto) 2.5 (2.0-8.3) X10*3/uL Absolute Nucleated RBC 0.000 (0.0-0.012) X10*3/uL Nucleated RBC % (auto) 0.0 (0.0-0.2) /100WBC PT (9.9-13.0) SEC INR (0.9-1.1) Sodium 138 (135-145) mmol/L Potassium 3.3 (3.3-5.1) mmol/L Chloride 102 (96-108) mmol/L Carbon Dioxide 28 (22-29) mmol/L Anion Gap 11 L (12-20) BUN 13 (9-16) mg/dL Creatinine 0.93 (0.5-1.4) mg/dL Estim Creat Clear Calc 172.5 Estimated GFR > 60 Random Glucose 106 (60-115) mg/dL Calcium 8.8 (8.4-10.2) mg/dL Magnesium 1.8 (1.6-2.6) mg/dL Total Bilirubin 1.9 H (0.0-1.0) mg/dL Direct Bilirubin 0.7 H (0.0-0.5) mg/dL AST 41 H (5-37) U/L ALT 15 (0-40) U/L Alkaline Phosphatase 106 D (39-117) U/L Troponin I High Sens 3.8 (<3.5-35.0) ng/L B-Natriuretic Peptide 112 H (<100) pg/mL Total Protein 6.8 D (6.5-8.0) g/dL Albumin 3.2 L D (3.5-5.0) g/dL 09/01/21 Range/Units 12:16 WBC (4.8-10.8) X10*3/uL RBC (4.60-5.80) X10*6/uL Hgb (14.0-18.0) g/dl Hct (42-52) % MCV (80-98) fL MCH (27.0-33.0) pg MCHC (31.0-36.0) g/dl RDW (11.0-16.0) % Plt Count (160-400) X10*3/uL MPV (9.4-12.4) fL Immature Gran % (Auto) (0.0-0.4) % Neut % (Auto) (45-73) % Lymph % (Auto) (20-40) % [place] % (Auto) (2-11) % Eos % (Auto) (0-4) % Baso % (Auto) (0-2) % Lymph # (Auto) (1.2-4.9) X10*3/uL [place] # (Auto) (0.1-1.2) X10*3/uL Eos # (Auto) (0.0-0.4) X10*3/uL Baso # (Auto) (0.0-0.2) X10*3/uL Abs Immat Gran (auto) (0.00-0.03) X10*3/uL Absolute Neuts (auto) (2.0-8.3) X10*3/uL Absolute Nucleated RBC (0.0-0.012) X10*3/uL Nucleated RBC % (auto) (0.0-0.2) /100WBC PT 23.5 H (9.9-13.0) SEC INR 2.0 H (0.9-1.1) Sodium (135-145) mmol/L Potassium (3.3-5.1) mmol/L Chloride (96-108) mmol/L Carbon Dioxide (22-29) mmol/L Anion Gap (12-20) BUN (9-16) mg/dL Creatinine (0.5-1.4) mg/dL Estim Creat Clear Calc Estimated GFR Random Glucose (60-115) mg/dL Calcium (8.4-10.2) mg/dL Magnesium (1.6-2.6) mg/dL Total Bilirubin (0.0-1.0) mg/dL Direct Bilirubin (0.0-0.5) mg/dL AST (5-37) U/L ALT (0-40) U/L Alkaline Phosphatase (39-117) U/L Troponin I High Sens (<3.5-35.0) ng/L B-Natriuretic Peptide (<100) pg/mL Total Protein (6.5-8.0) g/dL Albumin (3.5-5.0) g/dL Imaging Data CT scan - chest: Attestation: I personally reviewed and interpreted this imaging study as follows: Radiologist's impression: IMPRESSION: ? 1. No visible central or segmental pulmonary embolism. No thoracic aortic dissection. 2. Numerous bilateral calcified granulomata. No airspace consolidation or effusion. 3. Subcutaneous masses upper right chest similar to prior CT subcutaneous masses anterior abdomen, suspect small hematomas. 4. CT abdomen and pelvis described in separate report. ? CT scan - abdomen: Attestation: I personally reviewed and interpreted this imaging study as follows: Radiologist's impression: IMPRESSION: Stable thrombus in the main portal vein and portal splenic confluence from previous exam. Stable edema or soft tissue stranding of the small bowel mesentery likely related to venous congestion. Cirrhosis and splenomegaly and varices. Atrophic right kidney. Stable left adrenal myelolipoma. Postoperative changes following gastric bypass. Diverticulosis. Interval decrease in right gluteal muscle hematoma. Multiple subcutaneous nodules in the anterior abdominal wall probably related to subcutaneous injection sites. Clinical correlation recommended. Discharge Plan Discharge Clinical Impression: Abdominal pain Patient Disposition: Home, Self-Care Instructions: Abdominal Pain (ED) Additional Instructions: Increase protein water intake Small sips of fluids throughout the day Liquids for 24 hrs then advance diet as tolerated Call bariatric surgery this weekend if needed. For worsening symptoms return to ED this weekend. Your lab work and imaging looks good Prescriptions: New ondansetron 4 mg tablet,disintegrating 4 mg PO Q6H PRN (Reason: nausea and vomiting) Qty: 10 RF: 0 No Action ondansetron HCl [Zofran] 4 mg tablet 4 mg PO Q8H PRN (Reason: nausea and vomiting) 7 Days Qty: 14 RF: 0 potassium chloride 10 mEq tablet extended release 20 meq PO DAILY RF: 0 Eliquis 5 mg Tablet 5 mg PO BID Qty: 60 RF: 0 oxycodone 10 mg tablet 10 mg PO Q6H PRN (Reason: pain) Qty: 12 RF: 0 furosemide [Lasix] 20 mg tablet 20 mg PO QAM 60 Days Qty: 60 RF: 3 inulin 2.5 gram tablet,chewable 5 g PO .dialy RF: 0 Bariatric Multivitamins 45 mg iron- 800 mcg-120 mcg capsule 45 cap PO DAILY RF: 0 Referrals: Ata Irizarry PA [Physician [facility]] - 2 days Stand Alone Forms: Work/School Release Interventions: ED Discharge Assessment Last Done: 09/01/21 15:51 Discharge Date/Time: 09/01/21 15:52
[2021-09-01 12:21] LABS: MANUAL DIFF FLAG NO
[2021-09-01 12:22] LABS: Basophils Percent Auto 0.6 % (0-2); Eosinophils Absolute Auto 0.1 X10*3/uL (0.0-0.4); Eosinophils Percent Auto 1.4 % (0-4); Hematocrit 33.1 % (42-52); Hemoglobin 10.9 g/dl (14.0-18.0); Imm Gran Abs Auto 0.01 X10*3/uL (0.00-0.03); Imm Gran Pct Auto 0.3 % (0.0-0.4); Lymphocytes Absolute Auto 0.8 X10*3/uL (1.2-4.9); Lymphocytes Percent Auto 20.9 % (20-40); Mean Corpuscular HGB Conc 32.9 g/dl (31.0-36.0); Mean Corpuscular Hemoglobin 33.7 pg (27.0-33.0); Mean Corpuscular Volume 102.5 fL (80-98); Mean Platelet Volume 9.7 fL (9.4-12.4); Monocytes Absolute Auto 0.3 X10*3/uL (0.1-1.2); Monocytes Percent Auto 8.1 % (2-11); Neutrophils Absolute Auto 2.5 X10*3/uL (2.0-8.3); Neutrophils Percent Auto 68.7 % (45-73); Red Blood Count 3.23 X10*6/uL (4.60-5.80); Red Cell Distribution Width 17.1 % (11.0-16.0); White Blood Count 3.6 X10*3/uL (4.8-10.8)
[2021-09-01 12:23] LABS: Platelet Count 96 X10*3/uL (160-400)
[2021-09-01 12:27] LABS: Prothrombin Time 23.5 SEC (9.9-13.0)
[2021-09-01 12:37] LABS: Alanine Aminotransferase 15 U/L (0-40); Albumin Level 3.2 g/dL (3.5-5.0); Alkaline Phosphatase 106 U/L (39-117); Anion Gap 11 (12-20); Aspartate Amino Transferase 41 U/L (5-37); Bilirubin Direct 0.7 mg/dL (0.0-0.5); Bilirubin Total 1.9 mg/dL (0.0-1.0); Blood Urea Nitrogen 13 mg/dL (9-16); Calcium 8.8 mg/dL (8.4-10.2); Carbon Dioxide 28 mmol/L (22-29); Chloride 102 mmol/L (96-108); Creatinine Clr Calc Pharmacy 172.5; Estimated Glomerular Filt Rate > 60; Glucose Random 106 mg/dL (60-115); Magnesium 1.8 mg/dL (1.6-2.6); Potassium 3.3 mmol/L (3.3-5.1); Sodium 138 mmol/L (135-145); Total Protein 6.8 g/dL (6.5-8.0)
[2021-09-01 12:43] LABS: Troponin-I High Sensitivity 3.8 ng/L (<3.5-35.0)
[2021-09-01 13:34] LABS: B Type Natriuretic Peptide 112 pg/mL (<100)
[2021-09-01] MEDS: iohexoL 350 MG/ML 100 ML INFUS..BTL IV (14:06)
[2021-09-01 15:51] VITALS: BP 171/72; PULSE 75; RESP 18; O2SAT 100
== END 2021-09-01 15:52 | disposition home or self-care (01) ==
PROVIDERS: Nurse Practitioner Family; Emergency Provider Emergency Medicine; PCP Internal Medicine
DX: R10.9 Unspecified abdominal pain (principal); R06.02 Shortness of breath; E11.9 Type 2 diabetes mellitus without complications; I11.0 Hypertensive heart disease with heart failure; I50.9 Heart failure, unspecified; D64.9 Anemia, unspecified; I81 Portal vein thrombosis; Z79.01 Long term (current) use of anticoagulants; Z79.899 Other long term (current) drug therapy; Z98.84 Bariatric surgery status
CPT/HCPCS: 36415; 71275; 74177; 80048; 80076; 83735; 83880; 84484; 85025; 85610; 93005; 99284; Q9967

== ENCOUNTER → 2021-09-19 08:49 | Outpatient (BNVA) | payer OTHER, SELFPAY | PROVIDERS: PCP Internal Medicine; Referring Provider Internal Medicine; Visit Provider Physician Assistant Surgical ==

== ENCOUNTER → 2021-10-23 08:12 | Outpatient (BNVA) | payer OTHER, SELFPAY | PROVIDERS: PCP Internal Medicine; Visit Provider Physician Assistant Surgical ==

== ENCOUNTER → 2021-11-13 10:17 | Outpatient (BNVA) | payer OTHER, SELFPAY | PROVIDERS: PCP Internal Medicine; Referring Provider Internal Medicine; Visit Provider Physician Assistant Surgical | DX: E66.01 Morbid (severe) obesity due to excess calories (principal); I81 Portal vein thrombosis; Z68.43 Body mass index [BMI] 50.0-59.9, adult | CPT/HCPCS: 99212 ==

== ENCOUNTER → 2021-12-07 08:47 | Outpatient (BNVA) | payer OTHER, SELFPAY | PROVIDERS: PCP Internal Medicine; Referring Provider Internal Medicine; Visit Provider Dietitian, Registered | DX: E66.01 Morbid (severe) obesity due to excess calories (principal); Z68.43 Body mass index [BMI] 50.0-59.9, adult; E13.9 Other specified diabetes mellitus without complications; Z71.3 Dietary counseling and surveillance | CPT/HCPCS: 97803 ==

== ENCOUNTER 2021-12-25 14:15 | Outpatient (REF) | payer OTHER, SELFPAY ==
[2021-12-25 16:29] LABS: MANUAL DIFF FLAG NO
[2021-12-25 16:32] LABS: Basophils Percent Auto 0.2 % (0-2); Eosinophils Absolute Auto 0.1 X10*3/uL (0.0-0.4); Eosinophils Percent Auto 1.7 % (0-4); Hematocrit 37.5 % (42.0-52.0); Hemoglobin 12.5 g/dl (14.0-18.0); Imm Gran Abs Auto 0.01 X10*3/uL (0.00-0.03); Imm Gran Pct Auto 0.2 % (0.0-0.4); Lymphocytes Absolute Auto 0.9 X10*3/uL (1.2-4.9); Lymphocytes Percent Auto 23.4 % (20-40); Mean Corpuscular HGB Conc 33.3 g/dl (31.0-36.0); Mean Corpuscular Hemoglobin 32.1 pg (27.0-33.0); Mean Corpuscular Volume 96.2 fL (80.0-98.0); Mean Platelet Volume 11.3 fL (9.4-12.4); Monocytes Absolute Auto 0.3 X10*3/uL (0.1-1.2); Neutrophils Absolute Auto 2.7 x10*3/uL (2.0-8.3); Neutrophils Percent Auto 66.5 % (45-73); Red Cell Distribution Width 14.8 % (11.0-16.0)
[2021-12-25 16:33] LABS: Platelet Count 85 X10*3/uL (160-400)
[2021-12-25 16:47] LABS: Estimated Average Glucose 91 mg/dL; Hemoglobin A1c % 4.8 %
[2021-12-25 16:58] LABS: Anion Gap 10 (12-20); Blood Urea Nitrogen 10 mg/dL (9-16); C Reactive Protein 1.03 mg/dL (< or = 0.50); Calcium 9.3 mg/dL (8.4-10.2); Carbon Dioxide 28 mmol/L (22-29); Chloride 105 mmol/L (96-108); Cholesterol 162 mg/dL; Estimated Glomerular Filt Rate > 60; Glucose Random 86 mg/dL (60-115); HDL Cholesterol 34 mg/dL; Iron 96 mcg/dL (45-160); LDL Cholesterol Calculated 107 mg/dl; Potassium 3.8 mmol/L (3.3-5.1); Sodium 139 mmol/L (135-145); Triglycerides 105 mg/dL
[2021-12-25 17:03] LABS: Percent Iron Saturation 35 % (15-50); Total Iron Binding Capacity 273 mcg/dL (228-428); Unsaturated Iron Binding 177 ug/dL
[2021-12-25 17:17] LABS: Ferritin 140 ng/mL (20-250); TSH reflex Free T4 1.11 uIU/mL (0.32-4.0); Vitamin D 25-OH Total 47.2 ng/mL (>30)
[2021-12-25 17:28] LABS: Vitamin B12 577 pg/mL (200-900)
[2021-12-26 13:02] LABS: Calcium (PTHI) 9.1 mg/dL (8.6-10.3); PTHI 63 pg/mL (14-64)
[2021-12-28 05:39] LABS: Zinc 59 mcg/dL (60-130)
[2021-12-29 06:27] LABS: Vitamin B1 7 nmol/L (8-30)
[2021-12-30 18:41] LABS: Vitamin A 19 mcg/dL (38-98)
== END 2021-12-25 14:16 | disposition home or self-care (01) ==
LOC: HO.HMGCLDS 14:15
PROVIDERS: Absent Provider Internal Medicine Gastroenterology; PCP Internal Medicine; Referring Provider Internal Medicine Medical Oncology; Visit Provider Physician Assistant Surgical
DX: I81 Portal vein thrombosis (principal); E66.01 Morbid (severe) obesity due to excess calories; Z68.43 Body mass index [BMI] 50.0-59.9, adult
CPT/HCPCS: 36415; 80048; 80061; 82306; 82607; 82728; 82746; 83036; 83540; 83970; 84425; 84443; 84590; 84630; 85025; 86140

== ENCOUNTER → 2022-01-08 09:17 | Outpatient (BNVA) | payer OTHER, SELFPAY | PROVIDERS: PCP Internal Medicine; Referring Provider Internal Medicine; Visit Provider Physician Assistant Surgical | DX: E66.01 Morbid (severe) obesity due to excess calories (principal); Z68.42 Body mass index [BMI] 45.0-49.9, adult | CPT/HCPCS: 99212 ==

== ENCOUNTER 2022-04-06 11:38 | Outpatient (REF) | payer OTHER, SELFPAY ==
[2022-04-06 13:06] LABS: Influenza A PCR NEGATIVE (Negative); Influenza B PCR NEGATIVE (Negative); Resp Syncy Virus RNA Qual PCR NEGATIVE (Negative); SARS COV2 PCR INHOUSE NEGATIVE (Negative)
== END 2022-04-06 11:39 | disposition home or self-care (01) ==
LOC: HO.LNP 11:38
PROVIDERS: Visit Provider Nurse Practitioner Acute Care
DX: Z20.822 Contact with and (suspected) exposure to COVID-19 (principal); R68.89 Other general symptoms and signs
CPT/HCPCS: 0241U

== ENCOUNTER → 2022-05-09 09:37 | Outpatient (BNVA) | payer OTHER, SELFPAY | PROVIDERS: PCP Internal Medicine; Visit Provider Physician Assistant Surgical | DX: E66.01 Morbid (severe) obesity due to excess calories (principal); Z68.41 Body mass index [BMI] 40.0-44.9, adult; Z98.84 Bariatric surgery status | CPT/HCPCS: 99212 ==

== ENCOUNTER → 2022-05-21 10:19 | Outpatient (BNVA) | payer OTHER, SELFPAY | PROVIDERS: PCP Internal Medicine; Referring Provider Physician Assistant Surgical; Visit Provider Dietitian, Registered | DX: E66.01 Morbid (severe) obesity due to excess calories (principal); Z68.41 Body mass index [BMI] 40.0-44.9, adult; E13.9 Other specified diabetes mellitus without complications; Z71.3 Dietary counseling and surveillance | CPT/HCPCS: 97803 ==

== ENCOUNTER → 2022-06-12 10:25 | Outpatient (BNVA) | payer OTHER, SELFPAY | PROVIDERS: PCP Internal Medicine; Referring Provider Physician Assistant Surgical; Visit Provider Dietitian, Registered | DX: E66.01 Morbid (severe) obesity due to excess calories (principal); Z71.3 Dietary counseling and surveillance; Z98.84 Bariatric surgery status; Z68.41 Body mass index [BMI] 40.0-44.9, adult | CPT/HCPCS: 97803 ==

== ENCOUNTER 2022-06-15 10:08 | Outpatient (REF) | payer OTHER, SELFPAY ==
[2022-06-15 12:01] LABS: C Reactive Protein 0.41 mg/dL (< or = 0.50); Iron 94 mcg/dL (45-160); Percent Iron Saturation 33 % (15-50); Total Iron Binding Capacity 285 mcg/dL (228-428); Unsaturated Iron Binding 191 ug/dL
[2022-06-15 12:16] LABS: Folate 17.9 ng/mL (> or = 4.0); Vitamin B12 613 pg/mL (200-900)
[2022-06-15 12:24] LABS: Ferritin 144 ng/mL (20-250); TSH reflex Free T4 1.01 uIU/mL (0.32-4.0); Vitamin D 25-OH Total 36.5 ng/mL (>30)
[2022-06-15 12:53] LABS: Insulin 13 uU/mL (2-29)
[2022-06-18 17:06] LABS: Calcium (PTHI) 9.1 mg/dL (8.6-10.3); PTHI 63 pg/mL (16-77)
[2022-06-19 01:27] LABS: Zinc 60 mcg/dL (60-130)
[2022-06-20 16:41] LABS: Vitamin A 24 mcg/dL (38-98)
[2022-06-25 05:32] LABS: Vitamin B1 9 nmol/L (8-30)
== END 2022-06-15 10:09 | disposition home or self-care (01) ==
LOC: HO.HMGCLDS 10:08
PROVIDERS: PCP Internal Medicine; Visit Provider Physician Assistant Surgical
DX: E66.01 Morbid (severe) obesity due to excess calories (principal)
CPT/HCPCS: 36415; 82306; 82607; 82728; 82746; 83525; 83540; 83970; 84425; 84443; 84590; 84630; 86140

== ENCOUNTER 2022-08-09 14:18 | Outpatient (AMB) | payer OTHER, SELFPAY ==
--- NOTE | 2022-08-09 14:19 | A.OFFVIS_ITS ---
Intake Intake Visit Reasons: Angio CT results Intake Note: Patient follow up for CT Angio results. Patient cc: abdominal pain/bloating, and diarrhea. Patient denies any other GI issues. 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 Clinic visit was converted into a tele visit appointment. ?CHRONIC ILLNESSES:?Type 2 diabetes mellitus, congestive heart failure and morbid obesity. ?LABS IN [facility] :?06/03/20 chronic anemia with H&H of 12 and 37.4, platelet 92, BUN 26, creatinine 1.18, ? Total bili 1.1, AST 40, ALT 22, alkaline phosphatase 58, albumin 3.9, ? Hepatitis serologies were negative for hepatitis B and C. ? H pylori breath test was positive and pt was treated with amoxicillin, clarithromycin and omeprazole. ? 11/22 VIOLETTE screen was negative and protein electrophoresis was normal. ?IMAGING STUDIES: 06/08/[address] scan at [facility] showed: ? 1. Normal caliber appendix without acute inflammatory changes. A 5 mm appendicolith at the tip. ? 2. No acute inflammatory changes in the abdomen or pelvis. ? 3. Cirrhotic liver morphology with splenomegaly. ? 4. Left adrenal 4 cm myelolipoma without evidence of acute hemorrhage ? 5. Mild left-sided diverticulosis ? 6. Severe atrophy of the right kidney ? 7. Trace perihepatic and left para colic gutter ascites. ?ENDOSCOPIC STUDIES:?None in [facility] ?TODAY'S VISIT: Took Eliquis x 3 months and stopped since ? ? ? Had Bariatric surgery and lost 50 lbs. ?? ? (lost 38 lbs in 2 weeks then slowed down to 2 lbs in 2 weeks due to water retention) ?? ? To resume diuretics to help with water retention. ?? ? 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 ?Lab results were reviewed. ? Doing ok. ? PAST VISIT ?Sees wt management every Saturday. ? Denies heartburn, dysphagia or constipation. ? Weight decreased to 446 (weighed 480 lbs in 10/2020) ?Had a set back and gained 4 lbs due to Thanksgiving and? weighs 480 lbs. ? Initial wt (05/26) 535. (weighed 488 lbs in June 2020). ? Loosing 3-5 lbs a week. ? Goal is 435 to 450 lbs and anticipates he will be able to have surgery in January,. ? Known history of fatty liver and denies past history of jaundice. ? Patient denies symptoms of heartburn, dysphagia, nausea, vomiting, change in appetite. ? Intentional wt loss of 50 lbs over the past month. ? Going to the bathroom is becoming tougher. ? Denies black stools or rectal bleeding. ? Pt has CHF and denies pulmonary problems, loud snoring or sleep apnea ? Denies problems with anesthesia in the past. ? Denies being on chronic anticoagulation. ? Dad is 67 yrs and has colon polyps and has a lot of medical problems ? Patient denies known family history of colon cancer or other GI malignancies. ? PAST EGD/COLONOSCOPY: He may have had an Endoscopy and never had a?colonoscopy [facility] Medical History BMI 60.0-69.9, adult Cellulitis Cirrhosis of liver without ascites Congestive heart failure COVID-19 vaccine series completed Diabetes 1.5, managed as type 2 Essential hypertension Hiatal hernia HTN (hypertension) Hypertension, essential Hypokalemia Liver cirrhosis secondary to MCCOY Major depression, single episode Moderate major depression, single episode Morbid obesity Morbid obesity with BMI of 60.0-69.9, adult Pancytopenia Personal history of COVID-19 Portal vein thrombosis Preoperative examination Shortness of breath Super obesity Trauma left hip Type 2 diabetes mellitus UTI (urinary tract infection) Vitamin A deficiency Vitamin B1 deficiency Surgical History H/O discectomy History of repair of hiatal hernia Hx of appendectomy Hx of cholecystectomy S/P laparoscopic sleeve gastrectomy Family History Father Type 2 diabetes mellitus Heart disease Kidney failure Mother Obesity (BMI 30-39.9) Hypertension Brother No problems noted. Brother No problems noted. Other Mental health disorder Substance use disorder Social History Household Members: Family Household Members Other:: parents Housing: Apartment Are you a primary lawn care worker to a significant other at home: No Do you presently have visiting nurse or other home services: No Alcohol intake: never Patient Tobacco Use Status: Never used Tobacco e-Cigarette/Vaping Use: Never Used service: No Current occupational status: unemployed Cognitive needs: No Hearing needs: No Vision needs: Yes Review of Systems Const All systems reviewed & are unremarkable except as noted in HPI and below Assessment & Plan Assessment & Plan (1) Portal vein thrombosis: Code(s): I81 - Portal vein thrombosis (2) S/P laparoscopic sleeve gastrectomy: Code(s): Z98.84 - Bariatric surgery status (3) Cirrhosis of liver with ascites: Code(s): K74.60 - Unspecified cirrhosis of liver; R18.8 - Other ascites Plan 42 year old with Type 2 diabetes mellitus, congestive heart failure and morbid obesity referred to GI by Dr. Hopson for evaluation of cirrhosis with elevated LFTs. Patient denies ETOH abuse. Hepatitis serologies were negative for hepatitis B and C? with lack of immunity to hepatitis A and B -? advised vaccination. Iron studies were not suggestive of hemochromatosis. 11/22 VIOLETTE screen was negative and protein electrophoresis was normal. Elevated LFTs and cirrhosis are likely related to fatty liver associated with m orbid obesity due to consuming excessive caloric intake with BMI of 69. Pt appears to be choosing food to deal with stress/anxiety leading to poor weight loss/obesity. (BMI of 69). He is being followed by Dr. Espinoza and the [facility] and has lost 89 lb with dietary modification. He had a sleeve gastrectomy in May 2021. Liver fibrosis score is 0.42, liver fibrosis stage F1- F2 Patient needs vaccination for hepatitis A and B -? will be arranged by GI RNBrii RIVERA in 1 week Orders: Orders Comprehensive Met. Panel 08/10/22 K74.60 - Unspecified cirrhosis of liver, R18.8 - Other ascites, I81 - Portal vein thrombosis Complete Blood Count Auto Diff 08/10/22 K74.60 - Unspecified cirrhosis of liver, R18.8 - Other ascites, I81 - Portal vein thrombosis Prothrombin Time INR 08/10/22 K74.60 - Unspecified cirrhosis of liver, R18.8 - Other ascites, I81 - Portal vein thrombosis CT abdomen w IV con 08/09/22 I81 - Portal vein thrombosis, K74.60 - Unspecified cirrhosis of liver, R18.8 - Other ascites Lipase 08/10/22 K74.60 - Unspecified cirrhosis of liver, R18.8 - Other ascites, I81 - Portal vein thrombosis Medications: New apixaban (Eliquis) 5 mg PO BID 60 tabs 2RF 30 days furosemide (Lasix) 20 mg PO QAM 30 tabs 1RF 30 days R60.9 - Edema, unspecified Telehealth Telehealth Location of provider rendering services: practice address Location of patient: address on file Patient Identification confirmed using: Name, : Yes Telehealth method: voice only Patient verbally consented to treatment: Yes Patient verbally consented to billing insurance company: Yes Patient informed of any privacy concerns related to visit: Yes Minutes spent on Phone/Video with Pt.: 15 Coding Level of Care Code Tele Est Pt Level 3 (29847) Diagnoses Portal vein thrombosis I81 S/P laparoscopic sleeve gastrectomy Z98.84 Cirrhosis of liver with ascites K74.60; R18.8
== END 2022-08-09 15:57 | disposition home or self-care (01) ==
LOC: HO.HGI 14:18
PROVIDERS: PCP Internal Medicine; Visit Provider Internal Medicine Gastroenterology
DX: I81 Portal vein thrombosis (principal); Z98.84 Bariatric surgery status; K74.60 Unspecified cirrhosis of liver; R18.8 Other ascites
CPT/HCPCS: 99213

== ENCOUNTER 2022-08-10 10:27 | Outpatient (REF) | payer OTHER, SELFPAY ==
[2022-08-10 11:17] LABS: MANUAL DIFF FLAG NO
[2022-08-10 11:30] LABS: INTERNATIONAL NORM RATIO 1.5 (0.9-1.1); Prothrombin Time 17.7 SEC (10.0-13.1)
[2022-08-10 11:33] LABS: Basophils Percent Auto 0.6 % (0-2); Hematocrit 34.4 % (42.0-52.0); Hemoglobin 11.2 g/dl (14.0-18.0); Imm Gran Abs Auto 0.01 X10*3/uL (0.00-0.03); Imm Gran Pct Auto 0.3 % (0.0-0.4); Lymphocytes Absolute Auto 0.5 X10*3/uL (1.2-4.9); Lymphocytes Percent Auto 17.2 % (20-40); Mean Corpuscular HGB Conc 32.6 g/dl (31.0-36.0); Mean Corpuscular Hemoglobin 31.3 pg (27.0-33.0); Mean Corpuscular Volume 96.1 fL (80.0-98.0); Mean Platelet Volume 10.6 fL (9.4-12.4); Monocytes Absolute Auto 0.4 X10*3/uL (0.1-1.2); Monocytes Percent Auto 12.7 % (2-11); Neutrophils Absolute Auto 2.1 x10*3/uL (2.0-8.3); Neutrophils Percent Auto 68.2 % (45-73); Platelet Count 104 X10*3/uL (160-400); Red Blood Count 3.58 X10*6/uL (4.60-5.80); Red Cell Distribution Width 14.6 % (11.0-16.0); White Blood Count 3.1 X10*3/uL (4.8-10.8)
[2022-08-10 11:44] LABS: Estimated Average Glucose 85 mg/dL; Hemoglobin A1c % 4.6 %
[2022-08-10 12:07] LABS: Alanine Aminotransferase 13 U/L (0-40); Albumin Level 2.7 g/dL (3.5-5.0); Alkaline Phosphatase 75 U/L (39-117); Anion Gap 14 (12-20); Aspartate Amino Transferase 37 U/L (5-37); Bilirubin Total 1.2 mg/dL (0.0-1.0); Blood Urea Nitrogen 8 mg/dL (9-16); Calcium 8.1 mg/dL (8.4-10.2); Carbon Dioxide 23 mmol/L (22-29); Chloride 106 mmol/L (96-108); Estimated Glomerular Filt Rate > 60; Glucose Random 89 mg/dL (60-115); Lipase 51 U/L (8-78); Potassium 3.9 mmol/L (3.3-5.1); Sodium 139 mmol/L (135-145); Total Protein 6.8 g/dL (6.5-8.0)
== END 2022-08-10 10:28 | disposition home or self-care (01) ==
LOC: HO.HMGCLDS 10:27
PROVIDERS: Absent Provider Internal Medicine Gastroenterology; PCP Internal Medicine; Visit Provider Internal Medicine
DX: E13.9 Other specified diabetes mellitus without complications (principal); K74.60 Unspecified cirrhosis of liver; I81 Portal vein thrombosis; R18.8 Other ascites
CPT/HCPCS: 36415; 80053; 83036; 83690; 85025; 85610